=== PATIENT | female | born 1955 | race Caucasian/White ===

== ENCOUNTER 2020-12-10 12:32 | Emergency (ER) | payer MEDICARE, MEDICAID ==
[~2020-12-10] VITALS: Ht 167.6 cm; Wt 62.1 kg
[2020-12-10 12:50] VITALS: BP 147/67
[2020-12-10] MEDS ORDERED: ketorolac tromethamine 15mg/ml inj. IM ONE (14:00)
[2020-12-10] MEDS ORDERED: ACET-1025 PO (14:34)
[2020-12-10] MEDS ORDERED: CYCL-1 PO (14:34)
== END 2020-12-10 14:45 | disposition home or self-care (01) ==
LOC: ER 12:33
DX: M79.601 Pain in right arm (principal); G89.29 Other chronic pain; Z88.0 Allergy status to penicillin; Z88.8 Allergy status to other drugs, medicaments and biological substances; Z79.899 Other long term (current) drug therapy
CPT/HCPCS: 73030; 96372; 99283; J1885

== ENCOUNTER 2021-01-12 15:49 | Emergency (ER) | payer MEDICARE, MEDICAID ==
[~2021-01-12] VITALS: Ht 167.6 cm; Wt 61.0 kg
[~2021-01-12 15:49] MED LIST: ASPI-1071 PO; ATOR20TA66 PO; CLOP75TA34 PO; COR3.125T PO; CYCL-1 PO; DOXE50CA4 PO; FURO40TA4 PO; HYDR-3965 PO; HYDR-3972 PO; LISI20TA28 PO; NICO-687 TD; PERP2TAB5 PO
[2021-01-12 15:54] VITALS: BP 172/76
[2021-01-12] MEDS ORDERED: IBUP-1985 PO (16:52)
[2021-01-12] MEDS ORDERED: ACET-2006 PO (16:52)
== END 2021-01-12 18:37 | disposition home or self-care (01) ==
LOC: ER 15:50
DX: S93.601A Unspecified sprain of right foot, initial encounter (principal); M25.571 Pain in right ankle and joints of right foot; M25.471 Effusion, right ankle; G89.29 Other chronic pain; Z88.0 Allergy status to penicillin; Z88.8 Allergy status to other drugs, medicaments and biological substances; Z79.82 Long term (current) use of aspirin; Z79.899 Other long term (current) drug therapy; X58.XXXA Exposure to other specified factors, initial encounter; Y93.89 Activity, other specified; Y92.89 Other specified places as the place of occurrence of the external cause; Y99.8 Other external cause status
CPT/HCPCS: 29105; 73630; 99284

== ENCOUNTER 2021-01-20 19:07 | Emergency (ER) | payer MEDICARE, MEDICAID ==
[~2021-01-20] VITALS: Ht 160 cm; Wt 62.3 kg
[~2021-01-20 19:07] MED LIST changes: +ACET-2006 PO; -HYDR-3965 PO; +IBUP-1985 PO
[2021-01-20 19:15] VITALS: BP 141/72
[2021-01-20] MEDS ORDERED: ondansetron 4mg rapidly disintigrating tab PO ONE (19:35)
== END 2021-01-20 20:01 | disposition home or self-care (01) ==
LOC: ER 19:08
DX: R11.2 Nausea with vomiting, unspecified (principal); M54.89 Other dorsalgia; G89.29 Other chronic pain; Z88.0 Allergy status to penicillin; Z88.8 Allergy status to other drugs, medicaments and biological substances; Z79.82 Long term (current) use of aspirin; Z79.899 Other long term (current) drug therapy
CPT/HCPCS: 99283

== ENCOUNTER 2021-01-21 18:24 | Inpatient (IN) | payer MEDICARE, MEDICAID ==
[~2021-01-21] VITALS: Ht 167.6 cm; Wt 82.3 kg
[2021-01-21] MEDS ORDERED: aspirin 81mg tab.chew PO ONE (18:35)
[2021-01-21 19:09] LABS: BASOPHILS % (AUTO) 0.6 % (0-1); EOSINOPHILS % (AUTO) 0.6 % (0-6); HEMATOCRIT 37.9 % (35.0-45.0); HEMOGLOBIN 12.7 g/dl (12.0-16.0); LYMPHOCYTES # (AUTO) 1.4 X10'3 (1.1-4.8); LYMPHOCYTES % (AUTO) 24.8 % (21-51); MEAN CORPUSCULAR HEMOGLOBIN 32.5 PG (27.0-31.0); MEAN CORPUSCULAR HGB CONC 33.5 g/dL (33.0-36.5); MEAN CORPUSCULAR VOLUME 97.1 FL (78-98); MEAN PLATELET VOLUME 7.9 FL (7.4-10.4); MONOCYTES # (AUTO) 0.6 X10'3 (0-0.9); MONOCYTES % (AUTO) 9.8 % (2-12); NEUTROPHILS # (AUTO) 3.7 X10'3 (1.8-7.7); NEUTROPHILS % (AUTO) 64.2 % (42-75); PLATELET COUNT 272 X10'3 (140-440); RED CELL DISTRIBUTION WIDTH 16.1 % (11.5-14.5); WHITE BLOOD COUNT 5.7 X10'3 (4.5-11.0)
[2021-01-21 19:17] LABS: ALANINE AMINOTRANSFERASE 33 U/L (12-78); ALBUMIN/GLOBULIN RATIO 1.1 (1.1-1.5); ALKALINE PHOSPHATASE 87 IU/L (46-116); ANION GAP 13 (8-16); ASPARTATE AMINO TRANSFERASE 32 U/L (10-37); BILIRUBIN,TOTAL 0.7 MG/DL (0.1-1.0); BLOOD UREA NITROGEN 18 MG/DL (7-18); BUN/CREATININE RATIO 19.6 (6.6-38.0); CHLORIDE 101 MMOL/L (99-107); CREATININE 0.92 MG/DL (0.40-0.90); GLUCOSE 104 MG/DL (70-104); POTASSIUM 3.9 MMOL/L (3.5-5.1); SODIUM 137 MMOL/L (135-145); TOTAL CARBON DIOXIDE 22.9 MMOL/L (24-32); TOTAL PROTEIN 7.6 G/DL (6.4-8.2); eGFR 62 ML/MIN
[2021-01-21 19:31] LABS: CLARITY,URINE CLEAR (Clear); COLOR,URINE YELLOW (Yellow); GLUCOSE, URINE NEGATIVE (Neg); KETONES,URINE NEGATIVE (Neg); LEUKOCYTE ESTERASE ,URINE NEGATIVE (Neg); NITRITES, URINE NEGATIVE (Neg); OCCULT BLOOD,URINE TRACE-INTACT (Neg); PH,URINE 5.5 (4.8-8.0); PROTEIN,URINE NEGATIVE (Neg); UROBILINOGEN,URINE 0.2 E.U/dL (0.2-1.0)
[2021-01-21] MEDS ORDERED: pantoprazole 40mg Tablet.DR PO STA (19:33)
[2021-01-21] MEDS ORDERED: ondansetron 4mg rapidly disintigrating tab PO ONE (19:35)
[2021-01-21] MEDS ORDERED: famotidine 20mg tablet PO ONE (19:35)
[2021-01-21] MEDS ORDERED: LIDOcaine Viscous 15ml cup MM ONE (19:35)
[2021-01-21] MEDS ORDERED: mag hydrox/Alum hydrox/simeth 30ml oral suspension PO ONE (19:35)
[2021-01-21 19:39] LABS: UA COLLECTION TYPE STRAIGHT CATH
--- NOTE | 2021-01-21 19:41 | NUR ---
Attempt to contact patient's son. He does not answer. Voice message left to call back when available.
[2021-01-21 19:43] LABS: ETHANOL < 0.010 GM/DL (0.0-0.010)
[2021-01-21 19:51] LABS: BACTERIA,URINE NONE SEEN /HPF (Neg); RBC,URINE 0-2 /HPF (0-2); SQUAMOUS EPITHELIAL CELL,UR NONE SEEN /LPF (FEW); TRANSITIONAL EPI CELLS,URINE FEW /HPF; URINE AMPHETAMINE SCREEN NEGATIVE (Neg); URINE BARBITUATE SCREEN NEGATIVE (Neg); URINE BENZODIAZEPINES SCREEN NEGATIVE (Neg); URINE CANNABINOID SCREEN NEGATIVE (Neg); URINE COCAINE SCREEN NEGATIVE (Neg); URINE METHADONE SCREEN NEGATIVE (Neg); URINE OPIATE SCREEN NEGATIVE (Neg); URINE PHENCYCLIDINE SCREEN NEGATIVE (Neg); WBC,URINE NONE SEEN /HPF (0-4)
--- NOTE | 2021-01-21 20:38 | NUR ---
Patient uncooperative and continuously removes vital sign monitoring equipment despite education to please leave them in place.
--- NOTE | 2021-01-21 20:42 | NUR ---
Second attempt to contact patient's son which resulted in another voicemail left requesting a return phone call. Dr. Bass notified.
[2021-01-21] MEDS ORDERED: magnesium 2GM in 50ml NS 50 ML IV PRN (21:35)
[2021-01-21] MEDS ORDERED: magnesium hydroxide 30ml (MOM) UD suspension PO PRN (21:35)
[2021-01-21] MEDS ORDERED: potassium Cl 40MEQ/1/2NS 520ml 520 ML IV PRN ×2 (21:35)
[2021-01-21] MEDS ORDERED: magnesium 4gm in 100ml NS 100 ML IV PRN (21:35)
[2021-01-21] MEDS ORDERED: potassium Cl 20 mEq SR tablet PO PRN ×2 (21:35)
[2021-01-21] MEDS ORDERED: ondansetron/PF 4mg/2ml inj IV PRN (21:35)
[2021-01-21] MEDS ORDERED: mag hydrox/Alum hydrox/simeth 30ml oral suspension PO PRN (21:35)
[2021-01-21] MEDS ORDERED: acetaminophen 325mg tablet PO PRN (21:35)
[2021-01-21] MEDS ORDERED: magnesium Cl slow-release 64mg tablet PO PRN (21:35)
[2021-01-21] MEDS ORDERED: haloperidol lactate 5mg/ml inj IM PRN (22:15)
[2021-01-21] MEDS: LORazepam 2 mg/ml vial IV PRN (22:30)
[2021-01-22 00:38] LABS: EOSINOPHILS % (AUTO) 0.4 % (0-6); HEMATOCRIT 34.9 % (35.0-45.0); LYMPHOCYTES # (AUTO) 1.4 X10'3 (1.1-4.8); LYMPHOCYTES % (AUTO) 29.1 % (21-51); MEAN CORPUSCULAR HEMOGLOBIN 32.9 PG (27.0-31.0); MEAN CORPUSCULAR HGB CONC 34.4 g/dL (33.0-36.5); MEAN CORPUSCULAR VOLUME 95.4 FL (78-98); MEAN PLATELET VOLUME 7.6 FL (7.4-10.4); MONOCYTES # (AUTO) 0.4 X10'3 (0-0.9); MONOCYTES % (AUTO) 9.2 % (2-12); NEUTROPHILS # (AUTO) 2.9 X10'3 (1.8-7.7); NEUTROPHILS % (AUTO) 60.3 % (42-75); PLATELET COUNT 250 X10'3 (140-440); RED BLOOD COUNT 3.66 X10'6 (4.20-5.60); RED CELL DISTRIBUTION WIDTH 15.7 % (11.5-14.5); WHITE BLOOD COUNT 4.8 X10'3 (4.5-11.0)
[2021-01-22 00:47] LABS: ALANINE AMINOTRANSFERASE 31 U/L (12-78); ALBUMIN 3.5 G/DL (3.4-5.0); ALBUMIN/GLOBULIN RATIO 1.1 (1.1-1.5); ALKALINE PHOSPHATASE 78 IU/L (46-116); ANION GAP 10 (8-16); ASPARTATE AMINO TRANSFERASE 29 U/L (10-37); BILIRUBIN,TOTAL 0.6 MG/DL (0.1-1.0); BLOOD UREA NITROGEN 18 MG/DL (7-18); BUN/CREATININE RATIO 21.7 (6.6-38.0); CALCIUM 8.5 MG/DL (8.5-10.1); CHLORIDE 104 MMOL/L (99-107); CREATININE 0.83 MG/DL (0.40-0.90); GLUCOSE 109 MG/DL (70-104); POTASSIUM 3.9 MMOL/L (3.5-5.1); SODIUM 138 MMOL/L (135-145); TOTAL CARBON DIOXIDE 24.4 MMOL/L (24-32); TOTAL PROTEIN 6.8 G/DL (6.4-8.2); eGFR 69 ML/MIN
[2021-01-22 00:50] LABS: MAGNESIUM 2.3 MG/DL (1.5-2.4)
--- NOTE | 2021-01-22 01:11 | NUR ---
Patient sleeping peacefully
--- NOTE | 2021-01-22 03:38 | NUR ---
Patient continues to sleep.
[2021-01-22] MEDS ORDERED: CARV3.122 PO (07:26)
[2021-01-22] MEDS ORDERED: CLOP75TA15 PO (07:26)
[2021-01-22] MEDS ORDERED: LISI10TA27 PO (07:26)
[2021-01-22] MEDS ORDERED: ATOR-2 PO (07:26)
[2021-01-22] MEDS ORDERED: NICO-687 TOP (07:26)
[2021-01-22] MEDS ORDERED: BACL10TA2 PO (07:26)
[2021-01-22] MEDS ORDERED: POTA20TA19 PO (07:26)
[2021-01-22] MEDS ORDERED: ASPI-611 PO (07:29)
[2021-01-22] MEDS: K and/or MAG REPLACEMENT MC SCH ×2 (08:00→20:00)
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
--- NOTE | 2021-01-22 09:33 | NUR ---
DR SCANLON NOTIFIED AND WILL REVIEW CHART FOR POSSIBLE DC.
[2021-01-22] MEDS: acetaminophen 325mg tablet PO PRN (10:02)
[2021-01-22] MEDS ORDERED: DOXE100C10 PO (10:14)
[2021-01-22] MEDS ORDERED: HYDR-3686 PO (10:14)
[2021-01-22] MEDS ORDERED: FURO40TA4 PO (10:14)
[2021-01-22] MEDS ORDERED: IBUP-1985 PO (10:14)
[2021-01-22] MEDS ORDERED: regadenoson 0.4mg/5ml syringe IV PRN (10:15)
[2021-01-22] MEDS ORDERED: aminophylline 250mg/10ml inj. IV PRN (10:15)
[2021-01-22] MEDS ORDERED: nitroGLYCERIN 0.4mg SUBLingual tab SL PRN (10:15)
[2021-01-22] MEDS ORDERED: metoprolol tartrate 1mg/ml inj IV PRN (10:15)
[2021-01-22] MEDS ORDERED: hydrOXYzine 25 MG tablet PO PRN (10:20)
[2021-01-22] MEDS: perphenazine 8mg tablets PO SCH (11:16)
[2021-01-22] MEDS: lisinopril 10 MG tablet PO SCH (11:18)
[2021-01-22] MEDS: furosemide 40mg tablet PO SCH (11:18)
[2021-01-22] MEDS: clopidogrel 75mg tablet PO SCH (11:19)
[2021-01-22] MEDS: HYDROcodone/acetaminophen 10/325mg tab PO PRN ×2 (11:19→18:36)
[2021-01-22] MEDS: carVEDilol 3.125mg tablet PO SCH ×2 (11:20→20:00)
[2021-01-22] MEDS: aspirin 81mg tab.chew PO SCH (11:20)
--- NOTE | 2021-01-22 15:05 | NUR ---
melo rn at bedside.
[2021-01-22 16:30] VITALS: BP 144/73
[2021-01-22 18:00] VITALS: BP 144/73
--- NOTE | 2021-01-22 18:38 | NUR ---
Patient in room ORTHO 4020. I have received report from CHARLEY Moss and had the opportunity to ask questions and assume patient care.
[2021-01-22] MEDS: atorvastatin 20mg tablet PO SCH (21:05)
[2021-01-22] MEDS: doxepin 25mg capsule PO SCH (21:34)
[2021-01-22 22:00] VITALS: BP 138/76
[2021-01-23] VITALS (14 sets, daily range): BP systolic 112–189; BP diastolic 52–85
[2021-01-23] MEDS: acetaminophen 325mg tablet PO PRN ×2 (00:18→12:50)
--- NOTE | 2021-01-23 06:26 | NUR ---
Problems reprioritized. Patient report given, questions answered & plan of care reviewed with CHARLEY Barnett.
[2021-01-23 06:37] LABS: EOSINOPHILS % (AUTO) 0.7 % (0-6); HEMATOCRIT 39.9 % (35.0-45.0); HEMOGLOBIN 13.5 g/dl (12.0-16.0); LYMPHOCYTES % (AUTO) 26.2 % (21-51); MEAN CORPUSCULAR HEMOGLOBIN 32.4 PG (27.0-31.0); MEAN CORPUSCULAR HGB CONC 33.9 g/dL (33.0-36.5); MEAN CORPUSCULAR VOLUME 95.6 FL (78-98); MONOCYTES # (AUTO) 0.5 X10'3 (0-0.9); MONOCYTES % (AUTO) 12.8 % (2-12); NEUTROPHILS # (AUTO) 2.2 X10'3 (1.8-7.7); NEUTROPHILS % (AUTO) 59.3 % (42-75); PLATELET COUNT 249 X10'3 (140-440); RED BLOOD COUNT 4.17 X10'6 (4.20-5.60); RED CELL DISTRIBUTION WIDTH 16.1 % (11.5-14.5); WHITE BLOOD COUNT 3.7 X10'3 (4.5-11.0)
[2021-01-23 07:02] LABS: ALANINE AMINOTRANSFERASE 31 U/L (12-78); ALBUMIN 3.9 G/DL (3.4-5.0); ALBUMIN/GLOBULIN RATIO 1.1 (1.1-1.5); ALKALINE PHOSPHATASE 81 IU/L (46-116); ANION GAP 12 (8-16); ASPARTATE AMINO TRANSFERASE 25 U/L (10-37); BILIRUBIN,TOTAL 0.7 MG/DL (0.1-1.0); BLOOD UREA NITROGEN 23 MG/DL (7-18); BUN/CREATININE RATIO 26.1 (6.6-38.0); CHLORIDE 100 MMOL/L (99-107); CREATININE 0.88 MG/DL (0.40-0.90); GLUCOSE 113 MG/DL (70-104); MAGNESIUM 2.2 MG/DL (1.5-2.4); POTASSIUM 3.8 MMOL/L (3.5-5.1); SODIUM 137 MMOL/L (135-145); TOTAL CARBON DIOXIDE 25.3 MMOL/L (24-32); TOTAL PROTEIN 7.6 G/DL (6.4-8.2); eGFR 65 ML/MIN
[2021-01-23 07:06] LABS: CALCIUM 9.3 MG/DL (8.5-10.1)
[2021-01-23] MEDS: aspirin 81mg tab.chew PO SCH (07:07)
[2021-01-23] MEDS: carVEDilol 3.125mg tablet PO SCH ×2 (07:08→20:22)
[2021-01-23] MEDS: clopidogrel 75mg tablet PO SCH (07:08)
[2021-01-23] MEDS: furosemide 40mg tablet PO SCH (07:08)
[2021-01-23] MEDS: perphenazine 8mg tablets PO SCH (07:08)
[2021-01-23] MEDS: lisinopril 10 MG tablet PO SCH (07:09)
[2021-01-23] MEDS: LORazepam 2 mg/ml vial IV PRN ×3 (07:10→17:22)
[2021-01-23] MEDS: HYDROcodone/acetaminophen 10/325mg tab PO PRN ×2 (07:11→15:08)
[2021-01-23] MEDS: K and/or MAG REPLACEMENT MC SCH ×2 (08:00→20:00)
--- NOTE | 2021-01-23 10:02 | NUR ---
patient off floor for param
[2021-01-23] MEDS ORDERED: regadenoson 0.4mg/5ml syringe IV PRN (10:15)
--- NOTE | 2021-01-23 11:49 | NUR ---
patient back on floor from [facility]
[2021-01-23] MEDS: nicotine 14mg patch - 24hr TD SCH (12:05)
--- NOTE | 2021-01-23 15:03 | NUR ---
PAGER ID: [phone] MESSAGE: Anibal Ontiveros [id number] [facility] [id number] patient refuses scheduled Aspirin due to tinnitus reaction Thanks
--- NOTE | 2021-01-23 17:05 | NUR ---
PAGER ID: [phone] MESSAGE: Anibal [id number] [id number] Can we get a PO ativan as an alternative option to her IVP ativan please?
--- NOTE | 2021-01-23 17:34 | NUR ---
PAGER ID: [phone] MESSAGE: [id number] Yumiko Castillo BP 189/85. No PRN BP medications. Sylvie [phone]
--- NOTE | 2021-01-23 17:58 | NUR ---
BP recheck Addendum: 01/23/21 at 1758 by Sylvie Paris RN Amended: Links added.
--- NOTE | 2021-01-23 18:08 | NUR ---
Patient in room ORTHO 4020. I have received report from SylvieRN and AnibalRN and had the opportunity to ask questions and assume patient care.
--- NOTE | 2021-01-23 18:08 | NUR ---
Problems reprioritized. Patient report given, questions answered & plan of care reviewed with Nesha WHITEHEAD.
[2021-01-23] MEDS: atorvastatin 20mg tablet PO SCH (20:22)
[2021-01-23] MEDS: doxepin 25mg capsule PO SCH (21:39)
[2021-01-24] MEDS: acetaminophen 325mg tablet PO PRN (00:53)
[2021-01-24] MEDS: HYDROcodone/acetaminophen 10/325mg tab PO PRN (05:10)
[2021-01-24 06:00] VITALS: BP 124/54
--- NOTE | 2021-01-24 06:30 | NUR ---
Problems reprioritized. Patient report given, questions answered & plan of care reviewed with CHARLEY Santa.
[2021-01-24 06:48] LABS: BASOPHILS % (AUTO) 0.9 % (0-1); EOSINOPHILS % (AUTO) 0.5 % (0-6); HEMATOCRIT 38.7 % (35.0-45.0); HEMOGLOBIN 13.4 g/dl (12.0-16.0); LYMPHOCYTES # (AUTO) 1.3 X10'3 (1.1-4.8); LYMPHOCYTES % (AUTO) 29.4 % (21-51); MEAN CORPUSCULAR HEMOGLOBIN 33.3 PG (27.0-31.0); MEAN CORPUSCULAR HGB CONC 34.7 g/dL (33.0-36.5); MEAN CORPUSCULAR VOLUME 95.9 FL (78-98); MONOCYTES # (AUTO) 0.5 X10'3 (0-0.9); MONOCYTES % (AUTO) 12.4 % (2-12); NEUTROPHILS # (AUTO) 2.5 X10'3 (1.8-7.7); NEUTROPHILS % (AUTO) 56.8 % (42-75); PLATELET COUNT 264 X10'3 (140-440); RED BLOOD COUNT 4.03 X10'6 (4.20-5.60); RED CELL DISTRIBUTION WIDTH 15.7 % (11.5-14.5); WHITE BLOOD COUNT 4.4 X10'3 (4.5-11.0)
[2021-01-24] MEDS: LORazepam 2 mg/ml vial IV PRN (07:03)
--- NOTE | 2021-01-24 07:14 | NUR ---
Patient in room ORTHO 4020B. I have received report from CHARELY CURRAN and had the opportunity to ask questions and assume patient care.
[2021-01-24 07:18] LABS: ALANINE AMINOTRANSFERASE 23 U/L (12-78); ALBUMIN 3.8 G/DL (3.4-5.0); ALBUMIN/GLOBULIN RATIO 1.1 (1.1-1.5); ALKALINE PHOSPHATASE 77 IU/L (46-116); ANION GAP 12 (8-16); ASPARTATE AMINO TRANSFERASE 20 U/L (10-37); BILIRUBIN,TOTAL 0.8 MG/DL (0.1-1.0); BLOOD UREA NITROGEN 22 MG/DL (7-18); BUN/CREATININE RATIO 24.7 (6.6-38.0); CALCIUM 9.3 MG/DL (8.5-10.1); CHLORIDE 99 MMOL/L (99-107); CREATININE 0.89 MG/DL (0.40-0.90); GLUCOSE 105 MG/DL (70-104); POTASSIUM 3.7 MMOL/L (3.5-5.1); SODIUM 135 MMOL/L (135-145); TOTAL CARBON DIOXIDE 24.3 MMOL/L (24-32); TOTAL PROTEIN 7.3 G/DL (6.4-8.2); eGFR 64 ML/MIN
[2021-01-24] MEDS: K and/or MAG REPLACEMENT MC SCH (08:00)
[2021-01-24] MEDS: furosemide 40mg tablet PO SCH (08:00)
[2021-01-24] MEDS: nicotine 14mg patch - 24hr TD SCH (08:00)
[2021-01-24] MEDS: aspirin 81mg tab.chew PO SCH (08:00)
[2021-01-24] MEDS: clopidogrel 75mg tablet PO SCH (09:44)
[2021-01-24] MEDS: perphenazine 8mg tablets PO SCH (09:44)
[2021-01-24] MEDS: carVEDilol 3.125mg tablet PO SCH (09:45)
[2021-01-24] MEDS: lisinopril 10 MG tablet PO SCH (09:46)
[2021-01-24 10:00] VITALS: BP 147/61
[2021-01-24] MEDS ORDERED: NITR0.4T51 SL (11:16)
--- NOTE | 2021-01-24 15:00 | NUR ---
PATIENT STABLE AND APPROPRIATE FOR DISCHARGE, IV TAKEN OUT, TELE REMOVED, NEW MED E-SCRIPTED TO PREFERRED PHARMACY, WRITTEN EDUCATION SENT WITH PATIENT, PATIENT REFUSED TO GO OVER/RECEIVE EDUCATION, ALL BELONGINGS SENT WITH PATIENT, PATIENT TAKEN TO LOBBY TO SIT ON BENCH TO WAIT FOR RIDE WHICH FAMILY FRIEND WOULD TAKE PATIENT HOME
[2021-01-28] MEDS ORDERED: BACL-11 PO (01:27)
[2021-01-28] MEDS ORDERED: PRAV10TA39 PO (01:27)
[2021-01-28] MEDS ORDERED: DOXE50CA4 PO (01:27)
== END 2021-01-24 15:00 | disposition home or self-care (01) | DRG 917 ==
LOC: ER 18:24 → ED HOLD 21:33 → ORTHO 4S 01-22 16:31
PROVIDERS: ADMIT Family Medicine; ATTEND Family Medicine
PROC: 4A02XM4 Measurement of Cardiac Total Activity, External Approach (ICD-10-PCS; principal; 2021-01-23)
PROC: 3E073KZ Introduction of Other Diagnostic Substance into Coronary Artery, Percutaneous Approach (ICD-10-PCS; 2021-01-23)
DX: T42.8X1A Poisoning by antiparkinsonism drugs and other central muscle-tone depressants, accidental (unintentional), initial encounter (principal); I21.A1 Myocardial infarction type 2; F11.23 Opioid dependence with withdrawal; G93.40 Encephalopathy, unspecified; E78.5 Hyperlipidemia, unspecified; F17.210 Nicotine dependence, cigarettes, uncomplicated; G89.4 Chronic pain syndrome; I11.0 Hypertensive heart disease with heart failure; F99 Mental disorder, not otherwise specified; I25.5 Ischemic cardiomyopathy; M54.9 Dorsalgia, unspecified; I25.10 Atherosclerotic heart disease of native coronary artery without angina pectoris; I50.9 Heart failure, unspecified; K21.9 Gastro-esophageal reflux disease without esophagitis; Z82.49 Family history of ischemic heart disease and other diseases of the circulatory system; Z95.5 Presence of coronary angioplasty implant and graft; Z88.0 Allergy status to penicillin; Z88.6 Allergy status to analgesic agent; Z79.899 Other long term (current) drug therapy; Z71.6 Tobacco abuse counseling
CPT/HCPCS: 36415; 70450; 71045; 78452; 80053; 80305; 80320; 81001; 83735; 83880; 84443; 84484; 85025; 87081; 93005; 93017; 93306; 93308; 99285; A9500; G0378; J2060; J2785; Q0177

== ENCOUNTER 2021-02-13 19:48 | Emergency (ER) | payer MEDICARE, MEDICAID ==
[~2021-02-13] VITALS: Ht 167.6 cm; Wt 62.3 kg
[~2021-02-13 19:48] MED LIST changes: -ACET-2006 PO; -ASPI-1071 PO; +ASPI-611 PO; +ATOR-2 PO; -ATOR20TA66 PO; +CARV3.122 PO; +CLOP75TA15 PO; -CLOP75TA34 PO; -COR3.125T PO; -CYCL-1 PO; -DOXE50CA4 PO; +DOXE75CA3 PO; +HYDR-3686 PO; -HYDR-3972 PO; -IBUP-1985 PO; +LISI10TA27 PO; -LISI20TA28 PO; +MELA3TAB39 PO; -NICO-687 TD; +POTA20TA19 PO; +SERT-432 PO
--- NOTE | 2021-02-13 21:03 | NUR ---
This RN assisted the primary care list with the extablishment of a saline lock to the left hand. Patient blood drawn for lab analysis, 20 ga cath with a Y-port was flushed and secured X 1 attempt.
[2021-02-13] MEDS ORDERED: normal saline 1000ml 1,000 ML IV ONE (21:20)
[2021-02-13 21:32] LABS: BASOPHILS % (AUTO) 0.4 % (0-1); EOSINOPHILS % (AUTO) 0.2 % (0-6); HEMOGLOBIN 14.2 g/dl (12.0-16.0); LYMPHOCYTES # (AUTO) 1.7 X10'3 (1.1-4.8); LYMPHOCYTES % (AUTO) 26.1 % (21-51); MEAN CORPUSCULAR HEMOGLOBIN 32.6 PG (27.0-31.0); MEAN CORPUSCULAR HGB CONC 33.8 g/dL (33.0-36.5); MEAN CORPUSCULAR VOLUME 96.6 FL (78-98); MEAN PLATELET VOLUME 7.3 FL (7.4-10.4); MONOCYTES # (AUTO) 0.6 X10'3 (0-0.9); MONOCYTES % (AUTO) 8.9 % (2-12); NEUTROPHILS # (AUTO) 4.2 X10'3 (1.8-7.7); NEUTROPHILS % (AUTO) 64.4 % (42-75); PLATELET COUNT 330 X10'3 (140-440); RED BLOOD COUNT 4.35 X10'6 (4.20-5.60); RED CELL DISTRIBUTION WIDTH 15.1 % (11.5-14.5); WHITE BLOOD COUNT 6.6 X10'3 (4.5-11.0)
[2021-02-13] MEDS ORDERED: ondansetron/PF 4mg/2ml inj IV ONE (21:40)
[2021-02-13 21:43] LABS: ALANINE AMINOTRANSFERASE 59 U/L (12-78); ALBUMIN 4.4 G/DL (3.4-5.0); ALBUMIN/GLOBULIN RATIO 1.1 (1.1-1.5); ALKALINE PHOSPHATASE 187 IU/L (46-116); ANION GAP 11 (8-16); ASPARTATE AMINO TRANSFERASE 38 U/L (10-37); BILIRUBIN,TOTAL 0.8 MG/DL (0.1-1.0); BLOOD UREA NITROGEN 25 MG/DL (7-18); BUN/CREATININE RATIO 21.2 (6.6-38.0); CALCIUM 9.7 MG/DL (8.5-10.1); CHLORIDE 101 MMOL/L (99-107); CREATININE 1.18 MG/DL (0.40-0.90); GLUCOSE 110 MG/DL (70-104); POTASSIUM 3.7 MMOL/L (3.5-5.1); SODIUM 140 MMOL/L (135-145); TOTAL CARBON DIOXIDE 27.6 MMOL/L (24-32); TOTAL PROTEIN 8.3 G/DL (6.4-8.2); eGFR 46 ML/MIN
[2021-02-13 21:49] LABS: MAGNESIUM 2.4 MG/DL (1.5-2.4)
[2021-02-13] MEDS ORDERED: ONDA4TAB12 PO (21:51)
[2021-02-14 00:07] LABS: CLARITY,URINE CLEAR (Clear); COLOR,URINE YELLOW (Yellow); GLUCOSE, URINE NEGATIVE (Neg); KETONES,URINE TRACE mg/dl (Neg); LEUKOCYTE ESTERASE ,URINE NEGATIVE (Neg); NITRITES, URINE NEGATIVE (Neg); OCCULT BLOOD,URINE NEGATIVE (Neg); PROTEIN,URINE TRACE mg/dl (Neg); UROBILINOGEN,URINE 0.2 E.U/dL (0.2-1.0)
[2021-02-14 00:12] LABS: UA COLLECTION TYPE CLN CATCH MIDSTREAM
[2021-02-14 00:20] LABS: BACTERIA,URINE FEW /HPF (Neg); MUCUS STRANDS MODERATE /LPF (Neg); RBC,URINE 0-2 /HPF (0-2); SQUAMOUS EPITHELIAL CELL,UR MODERATE /LPF (FEW); WBC,URINE 0-4 /HPF (0-4)
[2021-02-14 00:41] VITALS: BP 153/69
--- NOTE | 2021-02-14 03:41 | NUR ---
Pt [facility] worker Gilbert . Left message to please call back to arrange transport.
--- NOTE | 2021-02-14 06:42 | NUR ---
Juliann, , pr's friend called for possible transport home. No answer
== END 2021-02-14 10:43 | disposition home or self-care (01) ==
LOC: ER 19:49
DX: R11.2 Nausea with vomiting, unspecified (principal); R07.89 Other chest pain; K59.00 Constipation, unspecified; I25.10 Atherosclerotic heart disease of native coronary artery without angina pectoris; I10 Essential (primary) hypertension; G89.29 Other chronic pain; F17.210 Nicotine dependence, cigarettes, uncomplicated; Z88.0 Allergy status to penicillin; Z88.6 Allergy status to analgesic agent; Z79.82 Long term (current) use of aspirin; Z79.899 Other long term (current) drug therapy
CPT/HCPCS: 36415; 71045; 80053; 81001; 83735; 83880; 84484; 85025; 96374; 99285; J2405; J7030; 81003

== ENCOUNTER 2022-09-14 02:14 | Inpatient (IN) | payer MEDICARE, MEDICAID ==
[~2022-09-14] VITALS: Ht 167.6 cm; Wt 65.2 kg
[~2022-09-14 02:14] MED LIST changes: +ONDA4TAB12 PO; +POTA-207 PO; -POTA20TA19 PO
[2022-09-14] MEDS ORDERED: albuterol 2.5 MG/3 ML nebule NEB ONE (02:25)
[2022-09-14] MEDS ORDERED: ipratropium/albuterol 3ml nebule NEB ONE (02:25)
[2022-09-14] MEDS ORDERED: methylPREDNISolone sod succ 125mg/2ml vial IV ONE (02:25)
[2022-09-14] MEDS ORDERED: aspirin 81mg tab.chew PO ONE (02:35)
[2022-09-14 02:38] LABS: ABG BASE EXCESS -6.8 mmol/L (-2.0-2.0); ABG HCO3 18.1 mmol/L (22.0-26.0); ABG OXYGEN SATURATION 89.7 % (94-97); ABG PCO2 (T) 34.5 mmHg (32.0-45.0); ABG PO2 (T) 59.8 mmHg (75.0-100.0); FCOHb 6.7 % (0.0-3.9); FMetHb 0.3 % (0.0-1.5); FO2Hb 83.4 % (94-97); TOTAL HEMOGLOBIN 13.4 G/dl (12.0-16.0)
[2022-09-14] MEDS ORDERED: iohexol 350MG/ML 100ml bottle IV ONE (02:38)
[2022-09-14 02:56] LABS: BASOPHILS % (AUTO) 0.3 % (0-1); EOSINOPHILS % (AUTO) 0.1 % (0-6); HEMATOCRIT 40.2 % (35.0-45.0); HEMOGLOBIN 13.3 g/dl (12.0-16.0); LYMPHOCYTES # (AUTO) 0.6 X10'3 (1.1-4.8); LYMPHOCYTES % (AUTO) 9.3 % (21-51); MEAN CORPUSCULAR HGB CONC 33.1 g/dL (33.0-36.5); MEAN CORPUSCULAR VOLUME 99.7 FL (78-98); MEAN PLATELET VOLUME 7.4 FL (7.4-10.4); MONOCYTES # (AUTO) 0.4 X10'3 (0-0.9); MONOCYTES % (AUTO) 5.9 % (2-12); NEUTROPHILS # (AUTO) 5.7 X10'3 (1.8-7.7); NEUTROPHILS % (AUTO) 84.4 % (42-75); PLATELET COUNT 300 X10'3 (140-440); RED BLOOD COUNT 4.03 X10'6 (4.20-5.60); RED CELL DISTRIBUTION WIDTH 13.7 % (11.5-14.5); WHITE BLOOD COUNT 6.7 X10'3 (4.5-11.0)
[2022-09-14] MEDS ORDERED: LORazepam 2 mg/ml vial IM ONE (03:15)
[2022-09-14 03:16] LABS: ALANINE AMINOTRANSFERASE 21 U/L (12-78); ALBUMIN 3.9 G/DL (3.4-5.0); ALKALINE PHOSPHATASE 150 IU/L (46-116); ANION GAP 9 (8-16); ASPARTATE AMINO TRANSFERASE 25 U/L (10-37); BILIRUBIN,TOTAL 0.3 MG/DL (0.1-1.0); BLOOD UREA NITROGEN 20 MG/DL (7-18); BUN/CREATININE RATIO 17.7 (6.6-38.0); CALCIUM 9.3 MG/DL (8.5-10.1); CHLORIDE 97 MMOL/L (99-107); CREATININE 1.13 MG/DL (0.40-0.90); GLUCOSE 141 MG/DL (70-104); POTASSIUM 4.5 MMOL/L (3.5-5.1); SODIUM 130 MMOL/L (135-145); TOTAL CARBON DIOXIDE 23.8 MMOL/L (24-32); TOTAL PROTEIN 7.9 G/DL (6.4-8.2); eGFR 48 ML/MIN
[2022-09-14] MEDS ORDERED: furosemide 10 MG/1 ML 10ml inj IV ONE ×2 (03:25→19:00)
[2022-09-14] MEDS ORDERED: diphenhydrAMINE 25mg capsule PO PRN (03:55)
[2022-09-14] MEDS ORDERED: acetaminophen 650mg rectal suppository RC PRN (03:55)
[2022-09-14] MEDS ORDERED: acetaminophen 325mg tablet PO PRN (03:55)
[2022-09-14] MEDS ORDERED: morphine 2 MG/ML inj. syringe IV PRN ×2 (03:55)
[2022-09-14] MEDS ORDERED: ondansetron 4mg rapidly disintigrating tab PO PRN (03:55)
[2022-09-14] MEDS ORDERED: bisacodyl 10mg suppository rectal RC PRN (03:55)
[2022-09-14] MEDS ORDERED: mag hydrox/Alum hydrox/simeth 30ml oral suspension PO PRN (03:55)
[2022-09-14] MEDS ORDERED: ondansetron/PF 4mg/2ml inj IV PRN (03:55)
[2022-09-14 04:25] LABS: APTT 35 SECONDS (22-32)
[2022-09-14 04:34] LABS: MAGNESIUM 2.1 MG/DL (1.5-2.4); PHOSPHORUS 4.9 MG/DL (2.3-4.5)
[2022-09-14] MEDS: normal saline 1000ml 1,000 ML IV SCH ×2 (05:14→20:15)
[2022-09-14 05:30] LABS: CLARITY,URINE CLEAR (Clear); COLOR,URINE STRAW (Yellow); GLUCOSE, URINE NEGATIVE (Neg); KETONES,URINE NEGATIVE (Neg); LEUKOCYTE ESTERASE ,URINE NEGATIVE (Neg); NITRITES, URINE NEGATIVE (Neg); OCCULT BLOOD,URINE NEGATIVE (Neg); PH,URINE 5.5 (4.8-8.0); PROTEIN,URINE NEGATIVE (Neg); UA COLLECTION TYPE CLN CATCH MIDSTREAM; UROBILINOGEN,URINE 0.2 E.U/dL (0.2-1.0)
[2022-09-14] MEDS: ipratropium/albuterol 3ml nebule NEB SCH ×6 (07:00→23:52)
[2022-09-14] MEDS: methylPREDNISolone sod succ 125mg/2ml vial IV SCH ×2 (07:16→20:24)
[2022-09-14] MEDS: pantoprazole 40mg Tablet.DR PO SCH (07:17)
[2022-09-14] MEDS: levoFLOXACIN-Levaquin 500mg/D5 100 ML IV SCH (07:17)
[2022-09-14] MEDS: nicotine 21mg patch - 24 hr TD SCH (07:17)
[2022-09-14] MEDS: docusate sod 100mg capsule PO SCH ×2 (07:19→20:26)
[2022-09-14] MEDS ORDERED: heparin, porcine 5000 units/ml vial SQ SCH (08:00)
[2022-09-14 08:38] LABS: URINE AMPHETAMINE SCREEN NEGATIVE (Neg); URINE BARBITUATE SCREEN NEGATIVE (Neg); URINE BENZODIAZEPINES SCREEN NEGATIVE (Neg); URINE CANNABINOID SCREEN NEGATIVE (Neg); URINE COCAINE SCREEN NEGATIVE (Neg); URINE METHADONE SCREEN NEGATIVE (Neg); URINE OPIATE SCREEN NEGATIVE (Neg); URINE PHENCYCLIDINE SCREEN NEGATIVE (Neg)
--- NOTE | 2022-09-14 11:10 | NUR ---
NAOMI form faxed to seconds handler at [facility].
--- NOTE | 2022-09-14 12:36 | NUR ---
pt given lunch tray
[2022-09-14] MEDS: HYDROcodone/acetaminophen 10/325mg tab PO PRN ×2 (13:24→18:56)
[2022-09-14] MEDS ORDERED: PRAV10TA39 PO (15:00)
[2022-09-14] MEDS ORDERED: LISI20TA28 PO (15:00)
[2022-09-14] MEDS ORDERED: HYDR-3964 PO (15:00)
[2022-09-14] MEDS ORDERED: FLUT12AE4 PO (15:00)
[2022-09-14] MEDS ORDERED: BACL10TA2 PO (15:00)
[2022-09-14 15:13] VITALS: BP 121/62
[2022-09-14] MEDS ORDERED: DOXE75CA3 PO (16:06)
[2022-09-14 18:00] VITALS: BP 120/63
[2022-09-14] MEDS ORDERED: potassium Cl 40MEQ/1/2NS 520ml 520 ML IV PRN ×2 (19:05)
[2022-09-14] MEDS ORDERED: potassium Cl 20 mEq SR tablet PO PRN ×2 (19:05)
[2022-09-14] MEDS: heparin 10,000 units/1 ML INJ IV SCH (19:50)
[2022-09-14] MEDS: DOBUTamine-DoBUTrex 500mg/D5W 250 ML IV SCH (20:19)
[2022-09-14 20:24] LABS: BASOPHILS % (AUTO) 0.1 % (0-1); EOSINOPHILS % (AUTO) 0 % (0-6); HEMOGLOBIN 11.8 g/dl (12.0-16.0); LYMPHOCYTES # (AUTO) 0.5 X10'3 (1.1-4.8); LYMPHOCYTES % (AUTO) 10.2 % (21-51); MEAN CORPUSCULAR HEMOGLOBIN 33.4 PG (27.0-31.0); MEAN CORPUSCULAR HGB CONC 33.7 g/dL (33.0-36.5); MEAN CORPUSCULAR VOLUME 99.1 FL (78-98); MEAN PLATELET VOLUME 7.5 FL (7.4-10.4); MONOCYTES # (AUTO) 0.2 X10'3 (0-0.9); MONOCYTES % (AUTO) 3.1 % (2-12); NEUTROPHILS # (AUTO) 4.6 X10'3 (1.8-7.7); NEUTROPHILS % (AUTO) 86.6 % (42-75); PLATELET COUNT 287 X10'3 (140-440); RED BLOOD COUNT 3.53 X10'6 (4.20-5.60); RED CELL DISTRIBUTION WIDTH 13.6 % (11.5-14.5); WHITE BLOOD COUNT 5.3 X10'3 (4.5-11.0)
[2022-09-14] MEDS: atorvastatin 20mg tablet PO SCH (20:27)
[2022-09-14] MEDS: carVEDilol 3.125mg tablet PO SCH (20:27)
[2022-09-14 20:35] LABS: APTT 25 SECONDS (22-32)
[2022-09-14] MEDS ORDERED: furosemide 20 MG/2 ML vial IV ONE (21:30)
[2022-09-14 22:00] VITALS: BP 132/66
[2022-09-14] MEDS: temazepam 15mg capsule PO PRN (23:53)
[2022-09-14] MEDS: HYDROcodone/acetaminophen 5mg/325mg tablet PO PRN (23:54)
[2022-09-15] VITALS (17 sets, daily range): BP systolic 115–152; BP diastolic 55–89
[2022-09-15] MEDS ORDERED: vancomycin/NS 1 GM ADD-VANTAGE 250 ML IV SCH (01:40)
[2022-09-15] MEDS: ipratropium/albuterol 3ml nebule NEB SCH ×6 (03:11→23:16)
[2022-09-15] MEDS: K and/or MAG REPLACEMENT MC SCH ×3 (03:30→19:06)
[2022-09-15 04:00] LABS: ALANINE AMINOTRANSFERASE 22 U/L (12-78); ALBUMIN 3.3 G/DL (3.4-5.0); ALBUMIN/GLOBULIN RATIO 0.9 (1.1-1.5); ALKALINE PHOSPHATASE 113 IU/L (46-116); ANION GAP 9 (8-16); ASPARTATE AMINO TRANSFERASE 31 U/L (10-37); BILIRUBIN,TOTAL 0.7 MG/DL (0.1-1.0); BLOOD UREA NITROGEN 26 MG/DL (7-18); BUN/CREATININE RATIO 26.3 (6.6-38.0); CALCIUM 8.5 MG/DL (8.5-10.1); CHLORIDE 100 MMOL/L (99-107); CREATININE 0.99 MG/DL (0.40-0.90); GLUCOSE 128 MG/DL (70-104); POTASSIUM 4.8 MMOL/L (3.5-5.1); SODIUM 131 MMOL/L (135-145); TOTAL CARBON DIOXIDE 22.3 MMOL/L (24-32); TOTAL PROTEIN 6.8 G/DL (6.4-8.2); eGFR 56 ML/MIN
[2022-09-15] MEDS: HYDROcodone/acetaminophen 5mg/325mg tablet PO PRN ×2 (04:23→08:33)
[2022-09-15 04:54] LABS: BASOPHILS % (AUTO) 0.1 % (0-1); EOSINOPHILS % (AUTO) 0 % (0-6); HEMATOCRIT 33.1 % (35.0-45.0); LYMPHOCYTES # (AUTO) 0.6 X10'3 (1.1-4.8); LYMPHOCYTES % (AUTO) 8.1 % (21-51); MEAN CORPUSCULAR HEMOGLOBIN 33.2 PG (27.0-31.0); MEAN CORPUSCULAR HGB CONC 33.4 g/dL (33.0-36.5); MEAN CORPUSCULAR VOLUME 99.5 FL (78-98); MEAN PLATELET VOLUME 8.1 FL (7.4-10.4); MONOCYTES # (AUTO) 0.2 X10'3 (0-0.9); MONOCYTES % (AUTO) 2.7 % (2-12); NEUTROPHILS # (AUTO) 6.3 X10'3 (1.8-7.7); NEUTROPHILS % (AUTO) 89.1 % (42-75); PLATELET COUNT 240 X10'3 (140-440); RED BLOOD COUNT 3.32 X10'6 (4.20-5.60); RED CELL DISTRIBUTION WIDTH 13.9 % (11.5-14.5)
--- NOTE | 2022-09-15 06:33 | NUR ---
Patient in room PCU 3017. I have received report from Yvonne WHITEHEAD and had the opportunity to ask questions and assume patient care. Will follow care of Pt with Maximilian ARELLANO. Pt sleeping, hep and Dobutamine Gtt infusing.Call light in reach. Addendum: 09/15/22 at 0635 by My Sparks RN Amended: Links added.
--- NOTE | 2022-09-15 06:35 | NUR ---
Patient in room U 3017. I have received report from Yvonne WHITEHEAD and had the opportunity to ask questions and assume patient care. Patient is right side lying. No distress. Call light within reach. Bed in lowest position. Addendum: 09/15/22 at 0636 by Maximilian Chester LVN Amended: Links added.
--- NOTE | 2022-09-15 07:21 | NUR ---
Patient refused her 0700 SVN treatment, wanted to rest.
[2022-09-15] MEDS: methylPREDNISolone sod succ 125mg/2ml vial IV SCH ×2 (07:58→19:57)
[2022-09-15] MEDS ORDERED: atorvastatin 10mg tablet PO SCH (08:00)
[2022-09-15] MEDS: levoFLOXACIN-Levaquin 500mg/D5 100 ML IV SCH (08:00)
[2022-09-15] MEDS: pantoprazole 40mg Tablet.DR PO SCH (08:31)
[2022-09-15] MEDS: docusate sod 100mg capsule PO SCH (08:31)
[2022-09-15] MEDS: nicotine 21mg patch - 24 hr TD SCH (08:31)
[2022-09-15] MEDS: carVEDilol 3.125mg tablet PO SCH ×2 (08:32→19:59)
[2022-09-15] MEDS ORDERED: BUPR1PAT21 TOP (08:52)
--- NOTE | 2022-09-15 09:00 | NUR ---
MESSAGE: [phone] Rajiv Castillo , Please review her MED REC. Thank You, My [phone]
[2022-09-15] MEDS ORDERED: clopidogrel 75mg tablet PO SCH (10:29)
[2022-09-15] MEDS: aspirin 81mg, enteric-coated 1 TAB TABLET.DR PO SCH (10:55)
[2022-09-15] MEDS: lisinopril 20mg tablet PO SCH (10:56)
[2022-09-15] MEDS: potassium Cl 20 mEq SR tablet PO SCH (10:57)
--- NOTE | 2022-09-15 10:59 | NUR ---
Pt explained side effects and noted allergy of aspirin. Pt verbalizes she wants the medication. She reports sometimes she gets ringing in the ears. aware.
--- NOTE | 2022-09-15 11:23 | NUR ---
Pt Buprophenphrine patch unavailable in pharmacy. Notified pt. Patient request to call Juliann [phone]. She will be bringing patient home medication.
[2022-09-15] MEDS ORDERED: nitroGLYCERIN-Tridil 50MG/D5W 250 ML IV ONE (11:25)
[2022-09-15] MEDS ORDERED: heparin 1,000unit/ml 10ml vial 10 ML ONE (11:25)
[2022-09-15] MEDS ORDERED: midazolam 1 mg/ML 2ml injection ONE (11:25)
[2022-09-15] MEDS ORDERED: LIDOcaine 1% (10mg/ml) 2ml vial ONE (11:25)
[2022-09-15] MEDS ORDERED: fentaNYL/PF 50MCG/1 ML 2ML syringe ONE (11:25)
[2022-09-15] MEDS ORDERED: verapamil 2.5 mg/ml inj IV ONE (11:25)
[2022-09-15] MEDS ORDERED: iohexol 350MG/ML 100ml bottle IV ONE ×2 (11:26→12:53)
--- NOTE | 2022-09-15 12:25 | NUR ---
Pt left for crime laboratory analyst procedure.
[2022-09-15] MEDS: normal saline 1000ml 1,000 ML IV SCH (13:15)
--- NOTE | 2022-09-15 13:30 | NUR ---
Pt arrived from general production laborer. 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 Skin warm to touch, skin blanchable. Written orders in place in chart. Reviewed. patient alert and oriented x 4. Addendum: 09/15/22 at 1643 by Maximilian Chester LVN 17 ml of air noted to left hemostatic wrist band
[2022-09-15] MEDS: baclofen 10mg tablet PO SCH ×3 (13:43→22:44)
[2022-09-15] MEDS: HYDROcodone/acetaminophen 10/325mg tab PO PRN ×2 (13:51→19:29)
--- NOTE | 2022-09-15 14:28 | NUR ---
Friend Negin brought x 1 Buproenprhine 15mcg/hr transdermal patch. medication being taken to pharmacy for processing.
[2022-09-15] MEDS ORDERED: albuterol 2.5 MG/3 ML nebule NEB SCH (15:00)
--- NOTE | 2022-09-15 15:30 | NUR ---
17ml of air removed from wristband as per written orders at 3ml q15min. No active bleeding noted. Pt skin is warm, blanchable skin noted. No numbness reported .
--- NOTE | 2022-09-15 18:06 | NUR ---
I have reviewed and agree with all interventions, assessments performed and documented by Maximilian ARELLANO.Problems reprioritized. Patient report given, questions answered & plan of care reviewed with Yvonne WHITEHEAD. Bedside report completed. Pt eating dinner. Call light in reach. Addendum: 09/15/22 at 1809 by My Sparks RN Amended: Links added.
--- NOTE | 2022-09-15 18:14 | NUR ---
Problems reprioritized. Patient report given, questions answered & plan of care reviewed with Lin WHITEHEAD. Bed side report given. Call light within reach. Pt sitting at bedside eating dinner. Addendum: 09/15/22 at 1815 by Maximilian Chester LVN Amended: Links added.
[2022-09-15] MEDS: heparin 10,000 units/1 ML INJ IV SCH (19:50)
[2022-09-15] MEDS: heparin 25,000 UNIT/250ml bag 250 ML IV PRN (19:56)
[2022-09-15] MEDS: atorvastatin 20mg tablet PO SCH (19:58)
[2022-09-15] MEDS: doxepin 25mg capsule PO SCH (19:58)
[2022-09-15] MEDS: magnesium hydroxide 30ml (MOM) UD suspension PO PRN (20:13)
[2022-09-15] MEDS: budesonide 0.5mg/2ml UD nebule IH SCH (20:23)
[2022-09-15] MEDS: temazepam 15mg capsule PO PRN (22:43)
[2022-09-16] VITALS (15 sets, daily range): BP systolic 106–177; BP diastolic 58–88
[2022-09-16] MEDS: HYDROcodone/acetaminophen 10/325mg tab PO PRN ×3 (00:53→20:47)
[2022-09-16] MEDS: DOBUTamine-DoBUTrex 500mg/D5W 250 ML IV SCH (00:56)
[2022-09-16] MEDS: vancomycin/NS 1 GM ADD-VANTAGE 250 ML IV SCH (02:54)
[2022-09-16] MEDS: ipratropium/albuterol 3ml nebule NEB SCH ×6 (03:02→23:28)
[2022-09-16] MEDS: baclofen 10mg tablet PO SCH ×6 (04:35→20:39)
--- NOTE | 2022-09-16 06:20 | NUR ---
Patient in room PCU 3017. I have received report from Yvonne ARELLANO and had the opportunity to ask questions and assume patient care. Will follow care of PT with Maximilian ARELLANO. Bedside report completed. Pt sleeping, Hep Gtt running @ 1000 units /Hr. Addendum: 09/16/22 at 0639 by My Sparks RN Amended: Links added.
--- NOTE | 2022-09-16 06:58 | NUR ---
Patient in room PCU 3017. I have received report from Lin WHITEHEAD and had the opportunity to ask questions and assume patient care. Bed side report given. Patient is right side lying. No distress noted. Call light within reach. Breating even and unlabored on oxygen @ 2LPM via nasal cannula. Addendum: 09/16/22 at 0700 by Maximilian Chester LVN Amended: Links added.
[2022-09-16] MEDS: methylPREDNISolone sod succ 125mg/2ml vial IV SCH ×2 (07:30→20:39)
[2022-09-16] MEDS: levoFLOXACIN-Levaquin 500mg/D5 100 ML IV SCH (07:30)
[2022-09-16] MEDS: budesonide 0.5mg/2ml UD nebule IH SCH ×2 (07:33→19:42)
[2022-09-16] MEDS: pantoprazole 40mg Tablet.DR PO SCH (07:50)
[2022-09-16] MEDS: carVEDilol 3.125mg tablet PO SCH ×2 (07:51→20:39)
[2022-09-16] MEDS: atorvastatin 20mg tablet PO SCH (07:51)
[2022-09-16] MEDS: aspirin 81mg, enteric-coated 1 TAB TABLET.DR PO SCH (07:52)
[2022-09-16] MEDS: potassium Cl 20 mEq SR tablet PO SCH (07:52)
[2022-09-16] MEDS: lisinopril 20mg tablet PO SCH (07:52)
[2022-09-16] MEDS: nicotine 21mg patch - 24 hr TD SCH (07:56)
[2022-09-16] MEDS: K and/or MAG REPLACEMENT MC SCH ×2 (08:00→18:55)
[2022-09-16 08:06] LABS: BASOPHILS % (AUTO) 0 % (0-1); EOSINOPHILS % (AUTO) 0 % (0-6); HEMOGLOBIN 10.5 g/dl (12.0-16.0); LYMPHOCYTES # (AUTO) 0.7 X10'3 (1.1-4.8); LYMPHOCYTES % (AUTO) 9.8 % (21-51); MEAN CORPUSCULAR HEMOGLOBIN 33.8 PG (27.0-31.0); MEAN CORPUSCULAR HGB CONC 33.9 g/dL (33.0-36.5); MEAN CORPUSCULAR VOLUME 99.7 FL (78-98); MEAN PLATELET VOLUME 7.2 FL (7.4-10.4); MONOCYTES # (AUTO) 0.4 X10'3 (0-0.9); MONOCYTES % (AUTO) 5.1 % (2-12); NEUTROPHILS # (AUTO) 6.2 X10'3 (1.8-7.7); NEUTROPHILS % (AUTO) 85.1 % (42-75); PLATELET COUNT 255 X10'3 (140-440); RED BLOOD COUNT 3.11 X10'6 (4.20-5.60); WHITE BLOOD COUNT 7.3 X10'3 (4.5-11.0)
[2022-09-16 08:30] LABS: ALANINE AMINOTRANSFERASE 22 U/L (12-78); ALBUMIN 2.9 G/DL (3.4-5.0); ALBUMIN/GLOBULIN RATIO 0.9 (1.1-1.5); ALKALINE PHOSPHATASE 94 IU/L (46-116); ANION GAP 8 (8-16); ASPARTATE AMINO TRANSFERASE 35 U/L (10-37); BILIRUBIN,TOTAL 0.4 MG/DL (0.1-1.0); BLOOD UREA NITROGEN 27 MG/DL (7-18); BUN/CREATININE RATIO 27.8 (6.6-38.0); CALCIUM 7.8 MG/DL (8.5-10.1); CHLORIDE 102 MMOL/L (99-107); CHOL/HDL RATIO 2.6 (0.00-4.99); CHOLESTEROL 161 MG/DL (0-200); CREATININE 0.97 MG/DL (0.40-0.90); GLUCOSE 108 MG/DL (70-104); HDL CHOLESTEROL 61 MG/DL (35-60); LDL CHOLESTEROL 80 MG/DL (50-100); POTASSIUM 4.9 MMOL/L (3.5-5.1); SODIUM 133 MMOL/L (135-145); TOTAL CARBON DIOXIDE 22.9 MMOL/L (24-32); TOTAL PROTEIN 6.3 G/DL (6.4-8.2); TRIGLYCERIDES 110 MG/DL (20-135); eGFR 58 ML/MIN
[2022-09-16] MEDS ORDERED: iohexol 350MG/ML 100ml bottle IV ONE (10:13)
[2022-09-16] MEDS ORDERED: FLU VACC QS2022-23(6MOS UP)/PF 60 MCG/0.5 ML SYRINGE IMVAC ONE (12:00)
[2022-09-16] MEDS ORDERED: pneumococcal 23-VAL P-sac vacc 25 mcg/0.5ml vial IMVAC ONE (12:00)
[2022-09-16] MEDS: heparin 25,000 UNIT/250ml bag 250 ML IV PRN (14:39)
[2022-09-16] MEDS ORDERED: ringers solution, lacted 1,000 ML IV ONE (15:25)
--- NOTE | 2022-09-16 16:13 | NUR ---
Flu and PNA vaccine unavailable. Pharmacy notified. They will bring up to the PCU floor
--- NOTE | 2022-09-16 18:04 | NUR ---
Problems reprioritized. Patient report given, questions answered & plan of care reviewed with Yvonne WHITEHEAD. I have reviewed and agree with all interventions, assessments performed and documented by Maximilian ARELLANO. bedside report completed. pt eating dinner. Call lg in reach. Addendum: 09/16/22 at 1806 by My Sparks RN Amended: Links added.
--- NOTE | 2022-09-16 18:06 | NUR ---
Problems reprioritized. Patient report given, questions answered & plan of care reviewed with Lin WHITEHEAD. Bed side report given. Patient eating food. Call light within reach. Pt breathing even and unlabored on o2 @ 2LPM via nasal cannula. no distress noted.
[2022-09-16] MEDS: heparin 10,000 units/1 ML INJ IV SCH (19:50)
[2022-09-16] MEDS: doxepin 25mg capsule PO SCH (20:38)
[2022-09-16] MEDS: normal saline 1000ml 1,000 ML IV SCH (22:35)
[2022-09-17] VITALS (9 sets, daily range): BP systolic 103–185; BP diastolic 47–80
[2022-09-17] MEDS: temazepam 15mg capsule PO PRN (00:04)
[2022-09-17] MEDS: baclofen 10mg tablet PO SCH ×6 (00:04→21:06)
[2022-09-17] MEDS: vancomycin/NS 1 GM ADD-VANTAGE 250 ML IV SCH (03:00)
[2022-09-17] MEDS: ipratropium/albuterol 3ml nebule NEB SCH ×7 (03:14→23:05)
[2022-09-17 04:42] LABS: BASOPHILS % (AUTO) 0.1 % (0-1); EOSINOPHILS % (AUTO) 0 % (0-6); HEMATOCRIT 28.4 % (35.0-45.0); HEMOGLOBIN 9.6 g/dl (12.0-16.0); LYMPHOCYTES # (AUTO) 0.5 X10'3 (1.1-4.8); LYMPHOCYTES % (AUTO) 10.6 % (21-51); MEAN CORPUSCULAR HEMOGLOBIN 33.4 PG (27.0-31.0); MEAN CORPUSCULAR HGB CONC 33.8 g/dL (33.0-36.5); MEAN CORPUSCULAR VOLUME 98.6 FL (78-98); MEAN PLATELET VOLUME 7.6 FL (7.4-10.4); MONOCYTES # (AUTO) 0.2 X10'3 (0-0.9); MONOCYTES % (AUTO) 3.6 % (2-12); NEUTROPHILS # (AUTO) 4.3 X10'3 (1.8-7.7); NEUTROPHILS % (AUTO) 85.7 % (42-75); PLATELET COUNT 219 X10'3 (140-440); RED BLOOD COUNT 2.88 X10'6 (4.20-5.60); RED CELL DISTRIBUTION WIDTH 13.8 % (11.5-14.5); WHITE BLOOD COUNT 5.1 X10'3 (4.5-11.0)
[2022-09-17] MEDS: magnesium hydroxide 30ml (MOM) UD suspension PO PRN (04:45)
[2022-09-17 04:53] LABS: ALANINE AMINOTRANSFERASE 26 U/L (12-78); ALBUMIN 2.9 G/DL (3.4-5.0); ALKALINE PHOSPHATASE 83 IU/L (46-116); ANION GAP 10 (8-16); ASPARTATE AMINO TRANSFERASE 28 U/L (10-37); BILIRUBIN,TOTAL 0.5 MG/DL (0.1-1.0); BLOOD UREA NITROGEN 28 MG/DL (7-18); BUN/CREATININE RATIO 25.9 (6.6-38.0); CALCIUM 8.1 MG/DL (8.5-10.1); CHLORIDE 100 MMOL/L (99-107); CREATININE 1.08 MG/DL (0.40-0.90); GLUCOSE 140 MG/DL (70-104); POTASSIUM 4.6 MMOL/L (3.5-5.1); SODIUM 131 MMOL/L (135-145); TOTAL CARBON DIOXIDE 20.9 MMOL/L (24-32); TOTAL PROTEIN 5.9 G/DL (6.4-8.2); eGFR 51 ML/MIN
[2022-09-17] MEDS ORDERED: LORazepam 2 mg/ml vial IV ONE (06:00)
[2022-09-17] MEDS ORDERED: famotidine 20mg tablet PO ONE (06:00)
[2022-09-17] MEDS: DOBUTamine-DoBUTrex 500mg/D5W 250 ML IV SCH ×2 (06:22→16:01)
--- NOTE | 2022-09-17 06:23 | NUR ---
Patient in room U 3017. I have received report from Lin WHITEHEAD and had the opportunity to ask questions and assume patient care. Bedside report given. Patient is sleeping. No distress. Right side lying. Bed in lowest position. Patient breathing on continuous oxygen @ 2LPM via nasal cannula. Addendum: 09/17/22 at 0625 by Maximilian Chester LVN Amended: Links added.
--- NOTE | 2022-09-17 06:29 | NUR ---
Patient in room PCU 3017. I have received report from Yvonne WHITEHEAD and had the opportunity to ask questions and assume patient care.Bedside report completed. Hep Gtt not infusing. Restated Hep gtt and replaced Dobutamine gtt bag. Will follow care of Pt with Maximilian ARELLANO. Pt sleeping, No distress. Addendum: 09/17/22 at 0632 by My Sparks RN Amended: Links added.
[2022-09-17] MEDS: atorvastatin 20mg tablet PO SCH (07:31)
[2022-09-17] MEDS: carVEDilol 3.125mg tablet PO SCH ×2 (07:31→21:06)
[2022-09-17] MEDS: aspirin 81mg, enteric-coated 1 TAB TABLET.DR PO SCH (07:32)
[2022-09-17] MEDS: pantoprazole 40mg Tablet.DR PO SCH (07:32)
[2022-09-17] MEDS: potassium Cl 20 mEq SR tablet PO SCH (07:32)
[2022-09-17] MEDS: lisinopril 20mg tablet PO SCH (07:32)
[2022-09-17] MEDS: nicotine 21mg patch - 24 hr TD SCH (07:35)
[2022-09-17] MEDS: K and/or MAG REPLACEMENT MC SCH ×2 (07:37→19:07)
[2022-09-17] MEDS: methylPREDNISolone sod succ 125mg/2ml vial IV SCH ×2 (07:40→20:00)
[2022-09-17] MEDS: budesonide 0.5mg/2ml UD nebule IH SCH ×3 (07:55→20:06)
--- NOTE | 2022-09-17 08:00 | NUR ---
Pt reports constipation. Pt was given MOM on previous shift. Floral Design Teacher will follow up. Addendum: 09/17/22 at 1158 by Maximilian Chester LVN Amended: Links added.
[2022-09-17] MEDS: HYDROcodone/acetaminophen 10/325mg tab PO PRN ×2 (10:44→22:44)
[2022-09-17] MEDS ORDERED: vitamin E 400 unit capsule PO SCH (10:50)
[2022-09-17] MEDS ORDERED: levoFLOXACIN 500mg tablet PO SCH (11:00)
[2022-09-17] MEDS: multivitamins, therapeutics tablet PO SCH ×3 (12:43→21:06)
[2022-09-17] MEDS: lactobacillus rhamnosus 10,000 MMU CELLS/CAPSULE PO SCH ×2 (12:43→17:37)
--- NOTE | 2022-09-17 12:58 | NUR ---
Pt has buprenoprhine 15mg/hr patch to left upper chest, baclofen 10mg q4hrs, and norco 10-325mg for breakthough pain. Pt alert and oriented x 4, some forgetfulness, No resp distress noted. Addendum: 09/17/22 at 1259 by Maximilian Chester LVN Amended: Links added.
[2022-09-17] MEDS: heparin 10,000 units/1 ML INJ IV SCH ×2 (14:10→20:57)
[2022-09-17] MEDS: normal saline 1000ml 1,000 ML IV SCH ×2 (15:15→15:53)
[2022-09-17] MEDS: vitamin E 400 unit capsule PO SCH (15:51)
[2022-09-17] MEDS: heparin 25,000 UNIT/250ml bag 250 ML IV PRN (17:22)
[2022-09-17] MEDS: psyllium seed 3.4 gm packet PO SCH (17:37)
[2022-09-17] MEDS: acetaminophen 325mg tablet PO PRN (17:42)
--- NOTE | 2022-09-17 18:10 | NUR ---
Problems reprioritized. Patient report given, questions answered & plan of care reviewed with Yvonne WHITEHEAD. Bedside report completed. Pt eating dinner. Call light in reach. Hep gtt infusing at 1400 units/hour. dobutamine @ 3 mics/kg/hr.I have reviewed and agree with all interventions, assessments performed and documented by Maximilian ARELLANO. Addendum: 09/17/22 at 1812 by My Sparks RN Amended: Links added.
--- NOTE | 2022-09-17 18:11 | NUR ---
Problems reprioritized. Patient report given, questions answered & plan of care reviewed with Lin WHITEHEAD. Bed side report given. Call light within reach. Pt was resting with no distress. Pt breathing even and unlabored on O2 @ 1.5LPM via nasal cannula. Addendum: 09/17/22 at 1812 by Maximilian Chester LVN Amended: Links added.
[2022-09-17] MEDS ORDERED: gabapentin 400mg capsule PO SCH (21:00)
[2022-09-17] MEDS: doxepin 25mg capsule PO SCH (21:05)
[2022-09-17] MEDS: diphenhydrAMINE 50 mg/ml inj IV PRN (22:42)
[2022-09-18] MEDS ORDERED: VANCOMYCIN LEVEL IV ONE (02:30)
[2022-09-18] MEDS: ipratropium/albuterol 3ml nebule NEB SCH ×6 (02:38→23:44)
[2022-09-18] MEDS: baclofen 10mg tablet PO SCH ×7 (03:08→23:54)
[2022-09-18] MEDS: acetaminophen 325mg tablet PO PRN (03:08)
[2022-09-18] MEDS: vancomycin/NS 1 GM ADD-VANTAGE 250 ML IV SCH (03:27)
[2022-09-18 04:10] LABS: BASOPHILS % (AUTO) 0.1 % (0-1); EOSINOPHILS % (AUTO) 0 % (0-6); HEMOGLOBIN 9.9 g/dl (12.0-16.0); LYMPHOCYTES # (AUTO) 1.1 X10'3 (1.1-4.8); LYMPHOCYTES % (AUTO) 20.3 % (21-51); MEAN CORPUSCULAR HEMOGLOBIN 33.9 PG (27.0-31.0); MEAN CORPUSCULAR HGB CONC 34.3 g/dL (33.0-36.5); MEAN CORPUSCULAR VOLUME 98.8 FL (78-98); MEAN PLATELET VOLUME 7.8 FL (7.4-10.4); MONOCYTES # (AUTO) 0.6 X10'3 (0-0.9); NEUTROPHILS # (AUTO) 3.8 X10'3 (1.8-7.7); NEUTROPHILS % (AUTO) 68.6 % (42-75); PLATELET COUNT 206 X10'3 (140-440); RED BLOOD COUNT 2.93 X10'6 (4.20-5.60); RED CELL DISTRIBUTION WIDTH 13.8 % (11.5-14.5); WHITE BLOOD COUNT 5.5 X10'3 (4.5-11.0)
[2022-09-18 04:16] LABS: ALANINE AMINOTRANSFERASE 26 U/L (12-78); ALBUMIN 2.9 G/DL (3.4-5.0); ALKALINE PHOSPHATASE 78 IU/L (46-116); ANION GAP 8 (8-16); ASPARTATE AMINO TRANSFERASE 25 U/L (10-37); BILIRUBIN,TOTAL 0.5 MG/DL (0.1-1.0); BLOOD UREA NITROGEN 29 MG/DL (7-18); BUN/CREATININE RATIO 28.4 (6.6-38.0); CALCIUM 7.9 MG/DL (8.5-10.1); CHLORIDE 101 MMOL/L (99-107); CREATININE 1.02 MG/DL (0.40-0.90); GLUCOSE 115 MG/DL (70-104); POTASSIUM 4.1 MMOL/L (3.5-5.1); SODIUM 132 MMOL/L (135-145); TOTAL CARBON DIOXIDE 22.8 MMOL/L (24-32); TOTAL PROTEIN 5.8 G/DL (6.4-8.2); VANCOMYCIN,TROUGH 6.8 UG/ML (6.0-14.0); eGFR 54 ML/MIN
[2022-09-18 06:00] VITALS: BP 132/69
[2022-09-18] MEDS: heparin 25,000 UNIT/250ml bag 250 ML IV PRN ×3 (07:46→13:43)
[2022-09-18] MEDS: normal saline 1000ml 1,000 ML IV SCH (07:55)
[2022-09-18] MEDS: vitamin E 400 unit capsule PO SCH (08:00)
[2022-09-18] MEDS: K and/or MAG REPLACEMENT MC SCH ×2 (08:00→20:00)
--- NOTE | 2022-09-18 08:45 | NUR ---
Initial: Pt admitted w/ COPD and CHF exacerbations and ELFEGO per EMR. Currently on Regular diet w/ avg intake 50% of meals which meets approximately 83% of est protein and energy needs. Pt also planned for CABG sometime this week per MD notes. [facility] 09/17. Will continue to monitor. Recs; 1. Continue Regular diet 2. Monitor need for ONS s/p procedure 3. Bowel care per rx 4. Scaled wts Addendum: 09/18/22 at [address] Amended: Links added.
[2022-09-18] MEDS ORDERED: MESSAGE TO NURSING PO ONE ×4 (09:15→10:00)
[2022-09-18] MEDS ORDERED: dextrose 50%-water 50ml dispensing syringe IV PRN (09:15)
[2022-09-18] MEDS ORDERED: MESSAGE TO PHARMACY IJ ONE (09:15)
[2022-09-18] MEDS: HYDROcodone/acetaminophen 10/325mg tab PO PRN ×3 (09:40→22:26)
[2022-09-18] MEDS: pantoprazole 40mg Tablet.DR PO SCH (09:56)
[2022-09-18] MEDS: atorvastatin 20mg tablet PO SCH (09:56)
[2022-09-18] MEDS: carVEDilol 3.125mg tablet PO SCH ×2 (09:57→20:31)
[2022-09-18] MEDS: multivitamins, therapeutics tablet PO SCH ×4 (09:57→20:32)
[2022-09-18] MEDS: aspirin 81mg, enteric-coated 1 TAB TABLET.DR PO SCH (09:57)
[2022-09-18] MEDS: lactobacillus rhamnosus 10,000 MMU CELLS/CAPSULE PO SCH ×3 (09:57→17:00)
[2022-09-18] MEDS: lisinopril 20mg tablet PO SCH (09:57)
[2022-09-18] MEDS: methylPREDNISolone sod succ 125mg/2ml vial IV SCH (09:58)
[2022-09-18] MEDS: nicotine 21mg patch - 24 hr TD SCH (09:58)
[2022-09-18] MEDS: potassium Cl 20 mEq SR tablet PO SCH (09:58)
[2022-09-18] MEDS: psyllium seed 3.4 gm packet PO SCH ×2 (09:58→16:29)
[2022-09-18] MEDS ORDERED: levoFLOXACIN 250mg tablet PO SCH (11:00)
[2022-09-18 11:30] VITALS: BP 106/57
--- NOTE | 2022-09-18 16:35 | NUR ---
PFT done at [facility] 09/06/2022. Copy of PFT results are in patient chart. Addendum: 09/18/22 at 1636 by Kulwinder Pepper RT Amended: Links added.
[2022-09-18 17:01] VITALS: BP 111/63
[2022-09-18 18:00] VITALS: BP 97/49
--- NOTE | 2022-09-18 19:19 | NUR ---
Problems reprioritized. Patient report given, questions answered & plan of care reviewed with CHARLEY Ceballos.
[2022-09-18] MEDS: budesonide 0.5mg/2ml UD nebule IH SCH (19:40)
[2022-09-18] MEDS: mupirocin 2% ointment 22GM NS SCH (20:00)
[2022-09-18] MEDS: doxepin 25mg capsule PO SCH (20:31)
[2022-09-18] MEDS: gabapentin 100mg capsule PO SCH (20:34)
[2022-09-18 22:00] VITALS: BP 119/58
[2022-09-18] MEDS: DOBUTamine-DoBUTrex 500mg/D5W 250 ML IV SCH (23:37)
[2022-09-19] VITALS (23 sets, daily range): BP systolic 78–167; BP diastolic 44–80
[2022-09-19] MEDS: normal saline 1000ml 1,000 ML IV SCH ×2 (00:35→17:15)
[2022-09-19] MEDS: diphenhydrAMINE 50 mg/ml inj IV PRN (02:02)
[2022-09-19] MEDS ORDERED: VANCOMYCIN LEVEL IV ONE (02:30)
[2022-09-19] MEDS: VANCOMYCIN 1,500MG in NS 300ml IVPB IV SCH (03:00)
[2022-09-19 03:15] LABS: BASOPHILS % (AUTO) 0.1 % (0-1); EOSINOPHILS % (AUTO) 0.1 % (0-6); HEMATOCRIT 29.1 % (35.0-45.0); HEMOGLOBIN 9.7 g/dl (12.0-16.0); LYMPHOCYTES % (AUTO) 19.4 % (21-51); MEAN CORPUSCULAR HEMOGLOBIN 33.1 PG (27.0-31.0); MEAN CORPUSCULAR HGB CONC 33.3 g/dL (33.0-36.5); MEAN CORPUSCULAR VOLUME 99.3 FL (78-98); MEAN PLATELET VOLUME 7.7 FL (7.4-10.4); MONOCYTES # (AUTO) 0.6 X10'3 (0-0.9); MONOCYTES % (AUTO) 10.8 % (2-12); NEUTROPHILS # (AUTO) 3.6 X10'3 (1.8-7.7); NEUTROPHILS % (AUTO) 69.6 % (42-75); PLATELET COUNT 218 X10'3 (140-440); RED BLOOD COUNT 2.93 X10'6 (4.20-5.60); RED CELL DISTRIBUTION WIDTH 13.7 % (11.5-14.5); WHITE BLOOD COUNT 5.2 X10'3 (4.5-11.0)
[2022-09-19] MEDS: ipratropium/albuterol 3ml nebule NEB SCH ×6 (03:18→23:08)
[2022-09-19 03:23] LABS: ALANINE AMINOTRANSFERASE 31 U/L (12-78); ALBUMIN 2.8 G/DL (3.4-5.0); ALKALINE PHOSPHATASE 74 IU/L (46-116); ANION GAP 8 (8-16); ASPARTATE AMINO TRANSFERASE 27 U/L (10-37); BILIRUBIN,TOTAL 0.5 MG/DL (0.1-1.0); BLOOD UREA NITROGEN 26 MG/DL (7-18); CALCIUM 7.9 MG/DL (8.5-10.1); CHLORIDE 99 MMOL/L (99-107); CREATININE 1.04 MG/DL (0.40-0.90); GLUCOSE 113 MG/DL (70-104); MAGNESIUM 2.2 MG/DL (1.5-2.4); PHOSPHORUS 3.5 MG/DL (2.3-4.5); POTASSIUM 4.1 MMOL/L (3.5-5.1); SODIUM 133 MMOL/L (135-145); TOTAL CARBON DIOXIDE 26.5 MMOL/L (24-32); TOTAL PROTEIN 5.7 G/DL (6.4-8.2); eGFR 53 ML/MIN
[2022-09-19] MEDS: acetaminophen 325mg tablet PO PRN (03:44)
[2022-09-19 03:59] LABS: VANCOMYCIN,TROUGH 9.6 UG/ML (6.0-14.0)
[2022-09-19] MEDS: baclofen 10mg tablet PO SCH ×5 (04:00→20:00)
[2022-09-19] MEDS: mupirocin 2% ointment 22GM NS SCH (05:15)
[2022-09-19] MEDS ORDERED: ceFAZolin 1000mg inj ONE ×2 (05:52→12:15)
[2022-09-19] MEDS ORDERED: epiNEPHrine 1 mg/ml inj ONE (05:52)
[2022-09-19] MEDS ORDERED: famotidine 20mg tablet PO ONE ×2 (06:00→07:30)
[2022-09-19] MEDS ORDERED: BUPIVAcaine 0.5% inj/PF 30 ML ONE ×2 (06:10→09:21)
[2022-09-19 06:42] LABS: ISTAT HGB ART 10.9 g/dl (12.0-16.0); ISTAT Hct ART 32 %PCV (35-45); ISTAT O2 SATURATION ARTERIAL 93 % (95-98); ISTAT SOURCE BLNK
[2022-09-19 06:43] LABS: ISTAT Hct MIX 31 %PCV (35-45); ISTAT O2 SATURATION MIX VENOUS 60 % (60-80); ISTAT SOURCE BLNK
[2022-09-19] MEDS: psyllium seed 3.4 gm packet PO SCH (07:00)
[2022-09-19] MEDS ORDERED: MIDAZolam 1mg/ml 10ml vial ONE (07:10)
[2022-09-19] MEDS ORDERED: fentaNYL /PF 50mcg/ml 5ml ampule ONE (07:11)
[2022-09-19] MEDS: budesonide 0.5mg/2ml UD nebule IH SCH ×2 (07:26→19:09)
[2022-09-19] MEDS ORDERED: LORazepam 2 mg/ml vial IV ONE (07:30)
[2022-09-19] MEDS: pantoprazole 40mg Tablet.DR PO SCH (07:30)
[2022-09-19] MEDS: carVEDilol 3.125mg tablet PO SCH ×2 (07:42→20:00)
--- NOTE | 2022-09-19 07:47 | NUR ---
CVOR on floor. Gave ativan, pepcid, and started vanco per orders.
--- NOTE | 2022-09-19 07:55 | NUR ---
Taken down to OR. Gave AM dose of coreg 3.125 per protocol Addendum: 09/19/22 at 0805 by Arlette Lay RN JESSICA martinez dose.
[2022-09-19] MEDS ORDERED: gabapentin 400mg capsule PO ONE (08:00)
[2022-09-19] MEDS: K and/or MAG REPLACEMENT MC SCH ×2 (08:00→20:00)
[2022-09-19] MEDS ORDERED: NORepinephrine bitart. inj. IV ONE (08:00)
[2022-09-19] MEDS ORDERED: LIDOcaine 2% (20 mg/ml) 5ml cardiac syringe ONE (08:00)
[2022-09-19] MEDS ORDERED: protamine sulf. 10mg/ml inj. IV ONE (08:00)
[2022-09-19] MEDS ORDERED: heparin 1,000 units/ml 10ml inj ONE (08:00)
[2022-09-19] MEDS ORDERED: albumin (human) 25% 100 ML IV solution IV ONE (08:00)
[2022-09-19] MEDS ORDERED: isoflurane 100ml inhalation liquid IH ONE (08:00)
[2022-09-19] MEDS ORDERED: insulin glargine (Lantus) pen - multi-dose SQ PRN ×2 (08:00→12:05)
[2022-09-19] MEDS: atorvastatin 20mg tablet PO SCH (08:00)
[2022-09-19] MEDS ORDERED: calcium chloride 100 MG/1 ML inj IV ONE (08:00)
[2022-09-19] MEDS: potassium Cl 20 mEq SR tablet PO SCH (08:00)
[2022-09-19] MEDS ORDERED: magnesium sulf 1 GM/2 ML ONE (08:00)
[2022-09-19] MEDS ORDERED: vancomycin/NS 1 GM ADD-VANTAGE 250 ML IV ONE ×2 (08:00→20:00)
[2022-09-19] MEDS: nicotine 21mg patch - 24 hr TD SCH (08:00)
[2022-09-19] MEDS: vitamin E 400 unit capsule PO SCH (08:00)
[2022-09-19] MEDS ORDERED: DOBUTamine/D5W 500mg/250ml premix IV ONE (08:00)
[2022-09-19] MEDS: multivitamins, therapeutics tablet PO SCH ×4 (08:00→21:00)
[2022-09-19] MEDS ORDERED: predniSONE 20 mg tablet PO SCH (08:00)
[2022-09-19] MEDS ORDERED: sodium bicarbonate (8.4%) 1 mEq/ml syringe ONE (08:00)
[2022-09-19] MEDS: aspirin 81mg, enteric-coated 1 TAB TABLET.DR PO SCH (08:00)
[2022-09-19] MEDS: lisinopril 20mg tablet PO SCH (08:00)
[2022-09-19] MEDS ORDERED: heparin 10,000 units/1 ML INJ ONE (08:00)
[2022-09-19] MEDS ORDERED: methylPREDNISolone sod succ 1000mg vial ONE (08:00)
[2022-09-19] MEDS ORDERED: cefazolin/dext.iso 2gm/50ml 50 ML IV ONE (08:00)
[2022-09-19] MEDS ORDERED: nitroGLYCERIN in D5W 50mg/250ml (Tridil) infusion IV ONE (08:00)
[2022-09-19] MEDS ORDERED: albumin (Human) 5% 250ml BOTTLE IV ONE (08:00)
[2022-09-19] MEDS ORDERED: aminocaproic acid 250 MG/1 ML inj. ONE (08:00)
[2022-09-19] MEDS: lactobacillus rhamnosus 10,000 MMU CELLS/CAPSULE PO SCH (08:30)
[2022-09-19 09:06] LABS: ABG BASE EXCESS -4.3 mmol/L (-2.0-2.0); ABG HCO3 21.9 mmol/L (22.0-26.0); ABG OXYGEN SATURATION 99.8 % (94-97); ABG PCO2 45.5 mmHg (32.0-45.0); ABG PO2 186.7 mmHg (75.0-100.0); CL (ABG) 100 mmol/L (99-107); FCOHb 1.3 % (0.0-3.9); FMetHb 0.2 % (0.0-1.5); FO2Hb 98.3 % (94-97); GLUCOSE (ABG) 121 mg/dl (70-104); IONIZED CA (ABG) 1.12 mmol/L (1.10-1.30); K (ABG) 3.9 mmol/L (3.5-5.1); TOTAL HEMOGLOBIN 10.2 G/dl (12.0-16.0)
[2022-09-19] MEDS ORDERED: phenylephrine 10mg/ml inj. -priapism dosing ONE (09:31)
[2022-09-19] MEDS ORDERED: propofol inj 20 ML IV ONE (09:31)
[2022-09-19] MEDS ORDERED: LIDOcaine 2% (20mg/ml) 5ml vial ONE (09:31)
[2022-09-19] MEDS ORDERED: rocuronium 10mg/ml inj IV ONE ×4 (09:31)
[2022-09-19] MEDS ORDERED: papaverine 30 mg/ml 2ml inj. ICAR ONE (09:41)
[2022-09-19] MEDS ORDERED: BUPIVAcaine 0.5% inj/PF 30 ml vial IJ ONE (09:41)
[2022-09-19] MEDS ORDERED: fentaNYL/PF 50MCG/1 ML 2ML syringe IV PRN (10:00)
[2022-09-19 10:13] LABS: ABG BASE EXCESS -4.4 mmol/L (-2.0-2.0); ABG HCO3 20.8 mmol/L (22.0-26.0); ABG OXYGEN SATURATION 99.7 % (94-97); ABG PCO2 38.4 mmHg (32.0-45.0); ABG PO2 401.2 mmHg (75.0-100.0); CL (ABG) 101 mmol/L (99-107); FCOHb 1.8 % (0.0-3.9); FMetHb 0.3 % (0.0-1.5); FO2Hb 97.6 % (94-97); GLUCOSE (ABG) 161 mg/dl (70-104); IONIZED CA (ABG) 0.89 mmol/L (1.10-1.30); K (ABG) 4.5 mmol/L (3.5-5.1); TOTAL HEMOGLOBIN 7.4 G/dl (12.0-16.0)
[2022-09-19] MEDS ORDERED: FENTANYL-0.9 % NACL/PF 100 ML IV PRN (10:16)
[2022-09-19] MEDS: propofol 1000mg/100ml bottle 100 ML IV SCH (10:20)
[2022-09-19 10:40] LABS: ABG BASE EXCESS VENOUS -0.4 mmol/L (-2.0 - 2.0); ABG HCO3 VENOUS 24.6 mmol/L (21.0-28.0); ABG PCO2 VENOUS 41.7 mmHg (38.0-51.0); ABG PO2 VENOUS 52.9 mmHg (25.0-35.0); CL (ABG) 99 mmol/L (99-107); FCOHb VENOUS 1.7 % (0.0- 3.9); FHHb VENOUS 10.4 %; FMetHb VENOUS 0.3 % (0.0 - 0.5); FO2Hb VENOUS 87.6 %; GLUCOSE (ABG) 139 mg/dl (70-104); IONIZED CA (ABG) 0.95 mmol/L (1.10-1.30); TOTAL HEMOGLOBIN 9.3 G/dl (12.0-16.0)
--- NOTE | 2022-09-19 10:47 | NUR ---
Cleaned up emar for my shift .I did not give preop dose of gabapentin, that was an error on my part, it was missed. Addendum: 09/20/22 at 1136 by Arlette Lay RN Finished getting report on my 5 patients at 0710 on 09/19 (out of ratio). I was still working on Twelve hour chart checks when CVOR came up on the floor about 0740ish. [place] had already been completed and all medications were hanging when I came on shift. I had previously called them since we start Vanco IVPB 1 hour before per protocol, but they did not answer the phone. I started the vanco per their request but the only vanco in emar was 0300 dose. I could not pull ativan and pepcid because the orders were from 09/17. Had to call pharmacy to correct. This took additional time. I finally was able to give ativan, pepcid, and beta sonja per protocol. I was not able to give gabapentin, it was a medication that I failed to give due to the situation of working out of ratio and trying to get her situated.
[2022-09-19 11:04] LABS: ACT @ 1.70 U 278 SEC (193-297); ACT @ 2.84 U 357 SEC (260-420); BASELINE ACT 128 SEC (101-148); PATIENT WEIGHT 66.0k KG
[2022-09-19 11:24] LABS: ABG BASE EXCESS 2.3 mmol/L (-2.0-2.0); ABG HCO3 26.4 mmol/L (22.0-26.0); ABG OXYGEN SATURATION 99.8 % (94-97); ABG PCO2 39.2 mmHg (32.0-45.0); ABG PO2 315.9 mmHg (75.0-100.0); CL (ABG) 99 mmol/L (99-107); FCOHb 1.4 % (0.0-3.9); FMetHb 0.3 % (0.0-1.5); FO2Hb 98.1 % (94-97); GLUCOSE (ABG) 126 mg/dl (70-104); IONIZED CA (ABG) 1.34 mmol/L (1.10-1.30); K (ABG) 3.8 mmol/L (3.5-5.1); TOTAL HEMOGLOBIN 8.4 G/dl (12.0-16.0)
[2022-09-19 11:39] LABS: ABG BASE EXCESS -3.7 mmol/L (-2.0-2.0); ABG HCO3 20.7 mmol/L (22.0-26.0); ABG OXYGEN SATURATION 97.9 % (94-97); ABG PCO2 34.8 mmHg (32.0-45.0); CL (ABG) 102 mmol/L (99-107); FCOHb 1.1 % (0.0-3.9); FMetHb 0.3 % (0.0-1.5); FO2Hb 96.5 % (94-97); GLUCOSE (ABG) 118 mg/dl (70-104); IONIZED CA (ABG) 1.12 mmol/L (1.10-1.30); K (ABG) 3.9 mmol/L (3.5-5.1); TOTAL HEMOGLOBIN 9.2 G/dl (12.0-16.0)
[2022-09-19] MEDS ORDERED: albumin (Human) 5% 250ml 250 ML IV ONE (11:54)
[2022-09-19] MEDS ORDERED: ondansetron/PF 4mg/2ml inj ONE (12:03)
[2022-09-19] MEDS ORDERED: dexamethasone sod phosphate 4mg/ml inj. ONE (12:03)
[2022-09-19] MEDS ORDERED: Neutra Phos packet PO PRN (12:05)
[2022-09-19] MEDS ORDERED: nitroGLYCERIN-Tridil 50MG/D5W 250 ML IV PRN (12:05)
[2022-09-19] MEDS ORDERED: bisacodyl 10mg suppository rectal RC PRN (12:05)
[2022-09-19] MEDS ORDERED: potassium Cl 20 mEq SR tablet PO PRN (12:05)
[2022-09-19] MEDS ORDERED: potassium Cl 40MEQ/1/2NS 520ml 520 ML IV PRN (12:05)
[2022-09-19] MEDS ORDERED: magnesium hydroxide 30ml (MOM) UD suspension PO PRN (12:05)
[2022-09-19] MEDS ORDERED: niCARDipine-NS 40mg/200ml IVPB 200 ML IV PRN (12:05)
[2022-09-19] MEDS ORDERED: dextrose 50%-water 50ml dispensing syringe IV PRN (12:05)
[2022-09-19] MEDS ORDERED: sodium phosphate inj. 15 MMOL in dextrose 5%-water 250 ML IV PRN (12:05)
[2022-09-19] MEDS ORDERED: potassium Cl 40MEQ/270ML bag 250 ML IV PRN (12:05)
[2022-09-19] MEDS ORDERED: mineral oil 133ml enema RC PRN (12:05)
[2022-09-19] MEDS ORDERED: DOBUTamine-DoBUTrex 500mg/D5W 250 ML IV PRN (12:05)
[2022-09-19] MEDS ORDERED: potassium CL 10mEq/100ml bag 100 ML IV PRN (12:05)
[2022-09-19] MEDS ORDERED: sodium phosphate inj. 30 MMOL in dextrose 5%-water 250 ML IV PRN (12:05)
[2022-09-19] MEDS ORDERED: HYDROcodone/acetaminophen 10/325mg tab PO PRN (12:05)
[2022-09-19] MEDS ORDERED: Insulin Reg/NS 100units/100mL 100 ML IV SCH (12:05)
[2022-09-19] MEDS ORDERED: magnesium citrate 296ml oral solution PO PRN (12:05)
[2022-09-19] MEDS ORDERED: metoclopramide 5 mg/ml inj IV PRN (12:05)
[2022-09-19] MEDS ORDERED: magnesium 4gm in 100ml NS 100 ML IV PRN (12:05)
--- NOTE | 2022-09-19 12:40 | NUR ---
Toes on right foot purple on admit to room. Pulses checked with Doppler and are auscultated. Blanchable.
--- NOTE | 2022-09-19 12:50 | NUR ---
Delivered all patient belongings to room 2013.
[2022-09-19 13:08] LABS: ABG BASE EXCESS -2.4 mmol/L (-2.0-2.0); ABG HCO3 25.4 mmol/L (22.0-26.0); ABG OXYGEN SATURATION 96.3 % (94-97); ABG PCO2 (T) 58.2 mmHg (32.0-45.0); ABG PO2 (T) 97.7 mmHg (75.0-100.0); FCOHb 1.1 % (0.0-3.9); FMetHb 0.3 % (0.0-1.5); PATIENT TEMPERATURE 36.8; PEEP 5 cm H2O; RESPIRATORY RATE 12 b/min; TIDAL VOLUME 450 mL
[2022-09-19 13:21] LABS: BASOPHILS % (AUTO) 0.1 % (0-1); EOSINOPHILS % (AUTO) 0.3 % (0-6); HEMATOCRIT 29.8 % (35.0-45.0); HEMOGLOBIN 9.9 g/dl (12.0-16.0); LYMPHOCYTES # (AUTO) 0.7 X10'3 (1.1-4.8); LYMPHOCYTES % (AUTO) 6.3 % (21-51); MEAN CORPUSCULAR HEMOGLOBIN 31.4 PG (27.0-31.0); MEAN CORPUSCULAR HGB CONC 33.3 g/dL (33.0-36.5); MEAN CORPUSCULAR VOLUME 94.4 FL (78-98); MEAN PLATELET VOLUME 7.7 FL (7.4-10.4); MONOCYTES # (AUTO) 0.9 X10'3 (0-0.9); MONOCYTES % (AUTO) 8.2 % (2-12); NEUTROPHILS # (AUTO) 9.5 X10'3 (1.8-7.7); NEUTROPHILS % (AUTO) 85.1 % (42-75); PLATELET COUNT 155 X10'3 (140-440); RED BLOOD COUNT 3.16 X10'6 (4.20-5.60); RED CELL DISTRIBUTION WIDTH 16.2 % (11.5-14.5); WHITE BLOOD COUNT 11.2 X10'3 (4.5-11.0)
[2022-09-19] MEDS: sodium chloride 0.45% 1,000 ML IV SCH (13:26)
[2022-09-19] MEDS: Insulin Reg/NS 100units/100mL 100 ML IV SCH ×2 (13:27→18:35)
[2022-09-19] MEDS: nitroGLYCERIN-Tridil 50MG/D5W 250 ML IV SCH (13:28)
[2022-09-19 13:37] LABS: ALANINE AMINOTRANSFERASE 34 U/L (12-78); ALBUMIN 2.4 G/DL (3.4-5.0); ALBUMIN/GLOBULIN RATIO 1.5 (1.1-1.5); ALKALINE PHOSPHATASE 46 IU/L (46-116); ANION GAP 6 (8-16); ASPARTATE AMINO TRANSFERASE 58 U/L (10-37); BILIRUBIN,TOTAL 0.8 MG/DL (0.1-1.0); BLOOD UREA NITROGEN 18 MG/DL (7-18); BUN/CREATININE RATIO 22.8 (6.6-38.0); CALCIUM 6.9 MG/DL (8.5-10.1); CHLORIDE 104 MMOL/L (99-107); CREATININE 0.79 MG/DL (0.40-0.90); GLUCOSE 142 MG/DL (70-104); MAGNESIUM 2.3 MG/DL (1.5-2.4); PHOSPHORUS 2.9 MG/DL (2.3-4.5); POTASSIUM 3.8 MMOL/L (3.5-5.1); SODIUM 136 MMOL/L (135-145); TOTAL CARBON DIOXIDE 25.6 MMOL/L (24-32); eGFR 73 ML/MIN
[2022-09-19 14:13] LABS: APTT 38 SECONDS (22-32)
[2022-09-19] MEDS: potassium Cl 20mEq/100mL bag 100 ML IV PRN ×2 (14:27→15:26)
[2022-09-19] MEDS: magnesium 2GM in 50ml NS 50 ML IV PRN (14:29)
--- NOTE | 2022-09-19 14:33 | NUR ---
Swelling and crepitus noted to pt;s neck. Gtts moved to cordis. CXR obtained. Dr. David notified. Notified Dr. David of CT output of 650. Will check coags.
--- NOTE | 2022-09-19 14:33 | NUR ---
Received to room 2013 at 1240, accompanied by MDs and surgical crew. Placed on ventilator, to telemetry monitor, arterial line and PA line pressure zeroed & monitored. Chest tubes to suction at 20 cm. Carmona cath to gravity drainage. Dressings are dry and intact. See assessment record. All vasoactive drugs are infusing via central line.
[2022-09-19] MEDS: morphine 4 MG/ML inj SYRINge IV PRN ×2 (14:39→19:10)
[2022-09-19 15:14] LABS: APTT 36 SECONDS (22-32)
[2022-09-19] MEDS: albumin (Human) 5% 250ml 250 ML IV PRN ×3 (15:47→17:49)
[2022-09-19] MEDS: ceFAZolin/D5W- 1GM premix 50 ML IV SCH (16:18)
--- NOTE | 2022-09-19 16:20 | NUR ---
OGT has leak at the distal port (where the debbie valve is.) Won't dc until ETT comes out as to not jeopardize ETT.
--- NOTE | 2022-09-19 18:30 | NUR ---
I have received report and assumed care of pt, Pt resting in bed rise and fall of chest cavity equal and symmetrical, pt has a NS bolus infusing and her 3rd dose of albumin infusing, Hemodynamic monitoring complete, air leak in chest tubes noted. Pt nodes head to yes no questions, Dr Cha rounded on pt, updated on pts condition orders for low dose Levophed obtained, as well as updated on Radial art line not working, art line taken out pressure held hemostasis obtained.
[2022-09-19] MEDS: NORepinephrine 8mg/ 250ml NS 250 ML IV SCH (18:59)
[2022-09-19 19:49] LABS: BASOPHILS % (AUTO) 0.1 % (0-1); EOSINOPHILS % (AUTO) 0 % (0-6); HEMATOCRIT 22.6 % (35.0-45.0); HEMOGLOBIN 7.7 g/dl (12.0-16.0); LYMPHOCYTES # (AUTO) 0.4 X10'3 (1.1-4.8); LYMPHOCYTES % (AUTO) 2.8 % (21-51); MEAN CORPUSCULAR HEMOGLOBIN 31.9 PG (27.0-31.0); MEAN CORPUSCULAR VOLUME 93.9 FL (78-98); MEAN PLATELET VOLUME 7.9 FL (7.4-10.4); MONOCYTES # (AUTO) 0.7 X10'3 (0-0.9); MONOCYTES % (AUTO) 4.9 % (2-12); NEUTROPHILS # (AUTO) 12.5 X10'3 (1.8-7.7); NEUTROPHILS % (AUTO) 92.2 % (42-75); PLATELET COUNT 148 X10'3 (140-440); RED BLOOD COUNT 2.41 X10'6 (4.20-5.60); RED CELL DISTRIBUTION WIDTH 16.5 % (11.5-14.5); WHITE BLOOD COUNT 13.6 X10'3 (4.5-11.0)
[2022-09-19 19:59] LABS: ALBUMIN 3.1 G/DL (3.4-5.0); ANION GAP 6 (8-16); BLOOD UREA NITROGEN 19 MG/DL (7-18); BUN/CREATININE RATIO 23.8 (6.6-38.0); CALCIUM 6.9 MG/DL (8.5-10.1); CHLORIDE 103 MMOL/L (99-107); GLUCOSE 152 MG/DL (70-104); MAGNESIUM 2.7 MG/DL (1.5-2.4); PHOSPHORUS 4.8 MG/DL (2.3-4.5); POTASSIUM 4.9 MMOL/L (3.5-5.1); SODIUM 134 MMOL/L (135-145); TOTAL CARBON DIOXIDE 24.6 MMOL/L (24-32); eGFR 72 ML/MIN
[2022-09-19] MEDS: sennosides/docusate sodium tablet PO SCH (20:00)
[2022-09-19 20:56] LABS: APTT 44 SECONDS (22-32)
[2022-09-19] MEDS: doxepin 25mg capsule PO SCH (21:00)
[2022-09-19] MEDS ORDERED: atorvastatin 10mg tablet PO SCH (21:00)
[2022-09-19] MEDS: gabapentin 100mg capsule PO SCH (21:00)
--- NOTE | 2022-09-19 21:00 | NUR ---
Spoke to Dr. Abernathy regarding pts chest tube output, pt on low dose Levophed, decrease in h/h new orders for 1 unit prbc. Addendum: 09/20/22 at 0504 by Mallika Valdez RN Dr Abernathy also wanted baclofen, Neurontin and Sinequan held tonight and he will reevaluate in the am for the need to continue them
[2022-09-19] MEDS: mupirocin 2% nasal ointment 1gm UD NS SCH (22:30)
[2022-09-20] VITALS (31 sets, daily range): BP systolic 85–130; BP diastolic 48–68
[2022-09-20] MEDS: ceFAZolin/D5W- 1GM premix 50 ML IV SCH ×4 (00:35→23:56)
[2022-09-20] MEDS: ondansetron/PF 4mg/2ml inj IV PRN (00:44)
[2022-09-20] MEDS: morphine 4 MG/ML inj SYRINge IV PRN ×2 (00:44→02:54)
[2022-09-20] MEDS: VANCOMYCIN 1,500MG in NS 300ml IVPB IV SCH ×2 (03:00→03:32)
[2022-09-20] MEDS: ipratropium/albuterol 3ml nebule NEB SCH ×6 (03:14→23:00)
[2022-09-20 03:39] LABS: BASOPHILS % (AUTO) 0.1 % (0-1); EOSINOPHILS % (AUTO) 0 % (0-6); HEMATOCRIT 27.6 % (35.0-45.0); HEMOGLOBIN 9.4 g/dl (12.0-16.0); LYMPHOCYTES # (AUTO) 0.7 X10'3 (1.1-4.8); LYMPHOCYTES % (AUTO) 6.3 % (21-51); MEAN CORPUSCULAR HEMOGLOBIN 32.1 PG (27.0-31.0); MEAN CORPUSCULAR HGB CONC 33.9 g/dL (33.0-36.5); MEAN CORPUSCULAR VOLUME 94.6 FL (78-98); MONOCYTES # (AUTO) 0.8 X10'3 (0-0.9); MONOCYTES % (AUTO) 7.3 % (2-12); NEUTROPHILS % (AUTO) 86.3 % (42-75); PLATELET COUNT 150 X10'3 (140-440); RED BLOOD COUNT 2.92 X10'6 (4.20-5.60); RED CELL DISTRIBUTION WIDTH 16.1 % (11.5-14.5); WHITE BLOOD COUNT 11.6 X10'3 (4.5-11.0)
[2022-09-20 03:53] LABS: ALANINE AMINOTRANSFERASE 31 U/L (12-78); ALKALINE PHOSPHATASE 36 IU/L (46-116); ANION GAP 7 (8-16); ASPARTATE AMINO TRANSFERASE 75 U/L (10-37); BILIRUBIN,TOTAL 1.2 MG/DL (0.1-1.0); BLOOD UREA NITROGEN 19 MG/DL (7-18); BUN/CREATININE RATIO 20.4 (6.6-38.0); CALCIUM 7.3 MG/DL (8.5-10.1); CHLORIDE 104 MMOL/L (99-107); CREATININE 0.93 MG/DL (0.40-0.90); GLUCOSE 122 MG/DL (70-104); MAGNESIUM 2.4 MG/DL (1.5-2.4); PHOSPHORUS 4.1 MG/DL (2.3-4.5); POTASSIUM 4.4 MMOL/L (3.5-5.1); SODIUM 136 MMOL/L (135-145); TOTAL CARBON DIOXIDE 24.7 MMOL/L (24-32); TOTAL PROTEIN 4.5 G/DL (6.4-8.2); TRIGLYCERIDES 42 MG/DL (20-135); eGFR 61 ML/MIN
[2022-09-20] MEDS: baclofen 10mg tablet PO SCH ×7 (04:00→23:56)
[2022-09-20] MEDS: morphine 2 MG/ML inj. syringe IV PRN ×3 (05:19→12:18)
--- NOTE | 2022-09-20 06:18 | NUR ---
report given to rec rn plan of care reviewed
[2022-09-20] MEDS: magnesium 2GM in 50ml NS 50 ML IV PRN (06:49)
--- NOTE | 2022-09-20 07:02 | NUR ---
Patient in room [facility] 2013. I have received report from Mallika West RN and had the opportunity to ask questions and assume patient care. Addendum: 09/20/22 at 0703 by Crystal Trotter RN Amended: Links added.
[2022-09-20] MEDS: K and/or MAG REPLACEMENT MC SCH ×2 (07:03→20:00)
[2022-09-20] MEDS: nicotine 21mg patch - 24 hr TD SCH (07:21)
[2022-09-20] MEDS: mupirocin 2% nasal ointment 1gm UD NS SCH ×2 (07:22→20:09)
[2022-09-20 07:46] LABS: BASOPHILS % (AUTO) 0 % (0-1); EOSINOPHILS % (AUTO) 0 % (0-6); HEMATOCRIT 25.7 % (35.0-45.0); HEMOGLOBIN 8.7 g/dl (12.0-16.0); LYMPHOCYTES # (AUTO) 0.9 X10'3 (1.1-4.8); LYMPHOCYTES % (AUTO) 7.9 % (21-51); MEAN CORPUSCULAR HGB CONC 33.9 g/dL (33.0-36.5); MEAN CORPUSCULAR VOLUME 94.3 FL (78-98); MEAN PLATELET VOLUME 7.8 FL (7.4-10.4); MONOCYTES # (AUTO) 1.4 X10'3 (0-0.9); MONOCYTES % (AUTO) 12.1 % (2-12); NEUTROPHILS # (AUTO) 9.5 X10'3 (1.8-7.7); PLATELET COUNT 150 X10'3 (140-440); RED BLOOD COUNT 2.72 X10'6 (4.20-5.60); RED CELL DISTRIBUTION WIDTH 15.8 % (11.5-14.5); WHITE BLOOD COUNT 11.8 X10'3 (4.5-11.0)
[2022-09-20] MEDS: budesonide 0.5mg/2ml UD nebule IH SCH ×2 (07:48→19:29)
[2022-09-20] MEDS: atorvastatin 20mg tablet PO SCH (07:56)
[2022-09-20] MEDS: metoprolol tartrate 12.5mg (1/2 tablet) PO SCH ×2 (07:56→20:00)
[2022-09-20] MEDS: aspirin 81mg tab.chew PO SCH (07:56)
[2022-09-20] MEDS: carVEDilol 3.125mg tablet PO SCH ×2 (07:56→20:00)
[2022-09-20] MEDS: sennosides/docusate sodium tablet PO SCH ×2 (07:56→20:07)
[2022-09-20] MEDS: multivitamins, therapeutics tablet PO SCH ×4 (07:56→20:07)
[2022-09-20 08:18] LABS: ALANINE AMINOTRANSFERASE 29 U/L (12-78); ALBUMIN 2.7 G/DL (3.4-5.0); ALBUMIN/GLOBULIN RATIO 1.6 (1.1-1.5); ALKALINE PHOSPHATASE 35 IU/L (46-116); ANION GAP 9 (8-16); ASPARTATE AMINO TRANSFERASE 70 U/L (10-37); BILIRUBIN,TOTAL 1.3 MG/DL (0.1-1.0); BLOOD UREA NITROGEN 19 MG/DL (7-18); BUN/CREATININE RATIO 21.8 (6.6-38.0); CHLORIDE 103 MMOL/L (99-107); CREATININE 0.87 MG/DL (0.40-0.90); GLUCOSE 122 MG/DL (70-104); MAGNESIUM 2.5 MG/DL (1.5-2.4); POTASSIUM 4.6 MMOL/L (3.5-5.1); SODIUM 135 MMOL/L (135-145); TOTAL CARBON DIOXIDE 23.1 MMOL/L (24-32); TOTAL PROTEIN 4.4 G/DL (6.4-8.2); eGFR 65 ML/MIN
[2022-09-20 08:22] LABS: ABG BASE EXCESS -3.1 mmol/L (-2.0-2.0); ABG HCO3 20.7 mmol/L (22.0-26.0); ABG OXYGEN SATURATION 91.1 % (94-97); ABG PCO2 (T) 33.1 mmHg (32.0-45.0); ABG PO2 (T) 63.1 mmHg (75.0-100.0); ALLEN'S TEST POSITIVE; FCOHb 0.3 % (0.0-3.9); FO2Hb 90.8 % (94-97); PATIENT TEMPERATURE 37.6; PEEP 5 cm H2O; RESPIRATORY RATE 8 b/min; TIDAL VOLUME 450 mL; TOTAL HEMOGLOBIN 9.5 G/dl (12.0-16.0)
--- NOTE | 2022-09-20 08:38 | NUR ---
Shirley Shanks here to see pt. at approx. 0805. Updated on plan of care. ABG obtained and resulted. Pt. placed on spontaneous mode on ventilator.
[2022-09-20] MEDS: normal saline 1000ml 1,000 ML IV SCH (09:55)
--- NOTE | 2022-09-20 10:16 | NUR ---
During [facility] shift, the [facility] RN changed the set rate on the vent from 16BPM to 10BPM at 0232 and then from 10BPM to 8BPM at 0410. There is no MD order for these changes and there is no rationale as to why these changes were made by the RN. There was also no follow up ABG obtained to check the patients status after the changes were made. Per report from the [facility] shift RT, the [facility] hemodialysis charge nurse stated that that no ABG was needed because it would be done prior to extubation on day shift so no morning ABG was obtained either. Upon my first assessment, the patient was awake and alert, with a RR in the high 20's to 30's. SpO2 was 97% on 50%. ABG was obtained per standard of care and O2 was dropped to 40%. Addendum: 09/20/22 at 1034 by Arina RT Amended: Links added.
[2022-09-20 10:20] LABS: APTT 28 SECONDS (22-32)
--- NOTE | 2022-09-20 11:01 | NUR ---
Nutrition consult: Pt POD #1 s/p CABG x4. Pt remains intubated at this time though would benefit from post-CABG nutrition therapy education once appropriate following extubation. Noted lipid panel is WNL. Will continue to follow. Addendum: 09/20/22 at [address] Amended: Links added.
[2022-09-20] MEDS ORDERED: mineral oil/petrolatum ophthal oint EACHEYE SCH (14:00)
[2022-09-20] MEDS: HYDROcodone/acetaminophen 10/325mg tab PO PRN ×3 (14:06→23:15)
--- NOTE | 2022-09-20 14:11 | NUR ---
Pt. refused SCD's.
--- NOTE | 2022-09-20 14:41 | NUR ---
PT here working with patient.
[2022-09-20] MEDS: NORepinephrine 8mg/ 250ml NS 250 ML IV SCH (15:26)
--- NOTE | 2022-09-20 18:21 | NUR ---
Patient in room CICU 2013. I have received report from CHARLEY Rojas and had the opportunity to ask questions and assume patient care.
[2022-09-20] MEDS: doxepin 25mg capsule PO SCH (20:05)
[2022-09-20] MEDS: gabapentin 100mg capsule PO SCH (21:00)
[2022-09-21] VITALS (23 sets, daily range): BP systolic 77–119; BP diastolic 44–60
[2022-09-21] MEDS: gabapentin 100mg capsule PO SCH ×2 (00:07→20:33)
[2022-09-21] MEDS: normal saline 1000ml 1,000 ML IV SCH ×2 (02:35→19:15)
[2022-09-21 02:50] LABS: ALBUMIN 2.6 G/DL (3.4-5.0); ANION GAP 5 (8-16); BLOOD UREA NITROGEN 25 MG/DL (7-18); BUN/CREATININE RATIO 27.5 (6.6-38.0); CALCIUM 7.5 MG/DL (8.5-10.1); CHLORIDE 102 MMOL/L (99-107); CREATININE 0.91 MG/DL (0.40-0.90); GLUCOSE 118 MG/DL (70-104); MAGNESIUM 2.5 MG/DL (1.5-2.4); PHOSPHORUS 4.1 MG/DL (2.3-4.5); POTASSIUM 4.8 MMOL/L (3.5-5.1); SODIUM 133 MMOL/L (135-145); TOTAL CARBON DIOXIDE 25.8 MMOL/L (24-32); eGFR 62 ML/MIN
[2022-09-21] MEDS: ipratropium/albuterol 3ml nebule NEB SCH ×6 (03:00→22:58)
--- NOTE | 2022-09-21 03:00 | NUR ---
Pt states she 'can't possibly go to the floor today' because her 'pain is just too bad'. When questioned how the [place] she is receiving helps with the pain pt states, 'I don't know, I've just been going to sleep'. Addendum: 09/21/22 at 0321 by Gina Gutierrez RN Amended: Links added.
[2022-09-21] MEDS: VANCOMYCIN 1,500MG in NS 300ml IVPB IV SCH (03:02)
[2022-09-21] MEDS: HYDROcodone/acetaminophen 10/325mg tab PO PRN ×5 (03:02→20:59)
[2022-09-21 03:29] LABS: BASOPHILS % (AUTO) 0.1 % (0-1); EOSINOPHILS % (AUTO) 0.1 % (0-6); HEMATOCRIT 22.9 % (35.0-45.0); HEMOGLOBIN 7.6 g/dl (12.0-16.0); LYMPHOCYTES # (AUTO) 1.3 X10'3 (1.1-4.8); LYMPHOCYTES % (AUTO) 12.9 % (21-51); MEAN CORPUSCULAR HGB CONC 33.4 g/dL (33.0-36.5); MEAN CORPUSCULAR VOLUME 95.7 FL (78-98); MEAN PLATELET VOLUME 8.4 FL (7.4-10.4); MONOCYTES # (AUTO) 1.7 X10'3 (0-0.9); NEUTROPHILS # (AUTO) 6.9 X10'3 (1.8-7.7); NEUTROPHILS % (AUTO) 69.9 % (42-75); PLATELET COUNT 120 X10'3 (140-440); RED BLOOD COUNT 2.39 X10'6 (4.20-5.60); RED CELL DISTRIBUTION WIDTH 15.6 % (11.5-14.5); WHITE BLOOD COUNT 9.9 X10'3 (4.5-11.0)
[2022-09-21] MEDS: baclofen 10mg tablet PO SCH ×5 (03:52→20:33)
[2022-09-21] MEDS: morphine 2 MG/ML inj. syringe IV PRN ×2 (04:29→12:24)
[2022-09-21 05:09] LABS: SMUDGE CELLS 1+; TOTAL CELLS COUNTED 100
[2022-09-21 05:10] LABS: PLATELET ESTIMATE DECREASED; POLYCHROMASIA FEW
--- NOTE | 2022-09-21 05:51 | NUR ---
Dr David notified regarding H&H of .03/23.9. No new orders received.
--- NOTE | 2022-09-21 06:15 | NUR ---
Problems reprioritized. Patient report given, questions answered & plan of care reviewed with Bharath RN.
[2022-09-21] MEDS: K and/or MAG REPLACEMENT MC SCH ×2 (06:36→20:00)
[2022-09-21] MEDS: budesonide 0.5mg/2ml UD nebule IH SCH ×2 (07:26→19:57)
[2022-09-21] MEDS: pantoprazole 40mg Tablet.DR PO SCH (07:27)
[2022-09-21] MEDS: sennosides/docusate sodium tablet PO SCH ×2 (07:27→20:33)
[2022-09-21] MEDS: multivitamins, therapeutics tablet PO SCH ×4 (07:28→20:33)
[2022-09-21] MEDS: atorvastatin 20mg tablet PO SCH (07:29)
[2022-09-21] MEDS: carVEDilol 3.125mg tablet PO SCH ×2 (07:29→20:33)
[2022-09-21] MEDS: metoprolol tartrate 12.5mg (1/2 tablet) PO SCH ×2 (07:29→20:33)
[2022-09-21] MEDS: nicotine 21mg patch - 24 hr TD SCH (07:31)
[2022-09-21] MEDS: mupirocin 2% nasal ointment 1gm UD NS SCH (07:31)
[2022-09-21] MEDS: propofol 1000mg/100ml bottle 100 ML IV SCH (10:20)
[2022-09-21] MEDS: aspirin 81mg tab.chew PO SCH (11:22)
[2022-09-21] MEDS: BUPRENORPHINE (Butrans) 10MCG PATCH.TDWK (7-day patch) TP SCH (11:30)
[2022-09-21] MEDS: sodium chloride 0.45% 1,000 ML IV SCH (12:05)
[2022-09-21] MEDS: nitroGLYCERIN-Tridil 50MG/D5W 250 ML IV SCH (12:05)
--- NOTE | 2022-09-21 18:24 | NUR ---
Neuro:AAOx4 Cardiac:ST, Hypotensive. On levo gtt. Currently @ 0.08 Resp:4L NC 6L needed when sitting in chair GI/: Ate some lunch today. Low appetite d/t discomfort Skin:Chest tubes x3 remain in place. Dressing CDI Pain: Needed 1x PRN porphine for management
--- NOTE | 2022-09-21 18:34 | NUR ---
Patient in room CICU 2013. I have received report from Bharath WHITEHEAD and had the opportunity to ask questions and assume patient care along with Gina WHITEHEAD.
--- NOTE | 2022-09-21 18:34 | NUR ---
Patient in room CICU 2013. I have received report from CHARLEY Sinha and had the opportunity to ask questions and assume patient care.
[2022-09-21] MEDS: doxepin 25mg capsule PO SCH (20:33)
[2022-09-22] VITALS (24 sets, daily range): BP systolic 78–129; BP diastolic 42–62
[2022-09-22] MEDS: baclofen 10mg tablet PO SCH ×7 (00:39→23:31)
[2022-09-22] MEDS: HYDROcodone/acetaminophen 10/325mg tab PO PRN ×4 (01:16→21:38)
[2022-09-22] MEDS ORDERED: VANCOMYCIN LEVEL IV ONE (02:30)
[2022-09-22 02:57] LABS: BASOPHILS % (AUTO) 0.3 % (0-1); EOSINOPHILS # (AUTO) 0.1 X10'3 (0-0.9); EOSINOPHILS % (AUTO) 1.1 % (0-6); HEMATOCRIT 23.6 % (35.0-45.0); HEMOGLOBIN 7.9 g/dl (12.0-16.0); LYMPHOCYTES # (AUTO) 1.9 X10'3 (1.1-4.8); LYMPHOCYTES % (AUTO) 15.7 % (21-51); MEAN CORPUSCULAR HEMOGLOBIN 32.1 PG (27.0-31.0); MEAN CORPUSCULAR HGB CONC 33.4 g/dL (33.0-36.5); MEAN CORPUSCULAR VOLUME 96.1 FL (78-98); MEAN PLATELET VOLUME 8.1 FL (7.4-10.4); MONOCYTES # (AUTO) 1.5 X10'3 (0-0.9); MONOCYTES % (AUTO) 12.1 % (2-12); NEUTROPHILS # (AUTO) 8.7 X10'3 (1.8-7.7); NEUTROPHILS % (AUTO) 70.8 % (42-75); PLATELET COUNT 168 X10'3 (140-440); RED BLOOD COUNT 2.45 X10'6 (4.20-5.60); RED CELL DISTRIBUTION WIDTH 15.8 % (11.5-14.5); WHITE BLOOD COUNT 12.3 X10'3 (4.5-11.0)
[2022-09-22 03:10] LABS: ANION GAP 8 (8-16); BLOOD UREA NITROGEN 28 MG/DL (7-18); BUN/CREATININE RATIO 37.8 (6.6-38.0); CALCIUM 7.1 MG/DL (8.5-10.1); CHLORIDE 101 MMOL/L (99-107); CREATININE 0.74 MG/DL (0.40-0.90); GLUCOSE 98 MG/DL (70-104); MAGNESIUM 1.8 MG/DL (1.5-2.4); PHOSPHORUS 2.9 MG/DL (2.3-4.5); POTASSIUM 4.6 MMOL/L (3.5-5.1); SODIUM 132 MMOL/L (135-145); TOTAL CARBON DIOXIDE 23.1 MMOL/L (24-32); VANCOMYCIN,TROUGH 13.3 UG/ML (6.0-14.0); eGFR 79 ML/MIN
[2022-09-22] MEDS: ipratropium/albuterol 3ml nebule NEB SCH ×2 (03:21→07:00)
[2022-09-22] MEDS: VANCOMYCIN 1,500MG in NS 300ml IVPB IV SCH (03:42)
--- NOTE | 2022-09-22 06:02 | NUR ---
Pt had soft BPs throughout the night, awake continuously asking for her pain meds. Levo had been previously running but was discontinued during day shift and not reordered. Otherwise asymptomatic, good urine output. SpO2 low on NC switched to [place] for higher Liter flow do to flat laying position for painful back mouth breathing during sleeping. When pt awake and moving BP and SpO2 within normal limits. Pt encouraged throughout the night to use IS to open lungs since she prefers lying flat in bed.
--- NOTE | 2022-09-22 06:15 | NUR ---
Problems reprioritized. Patient report given, questions answered & plan of care reviewed with Tra RN.
[2022-09-22] MEDS ORDERED: magnesium 2GM in 50ml NS 50 ML IV PRN (07:35)
[2022-09-22] MEDS ORDERED: potassium Cl 40MEQ/270ML bag 250 ML IV PRN (07:35)
[2022-09-22] MEDS ORDERED: magnesium 4gm in 100ml NS 100 ML IV PRN (07:35)
[2022-09-22] MEDS ORDERED: potassium Cl 40MEQ/1/2NS 520ml 520 ML IV PRN (07:35)
[2022-09-22] MEDS ORDERED: potassium Cl 20mEq/100mL bag 100 ML IV PRN (07:35)
[2022-09-22] MEDS ORDERED: potassium CL 10mEq/100ml bag 100 ML IV PRN (07:35)
[2022-09-22] MEDS ORDERED: potassium Cl 20 mEq SR tablet PO PRN ×2 (07:35)
[2022-09-22] MEDS: multivitamins, therapeutics tablet PO SCH ×4 (07:47→19:59)
[2022-09-22] MEDS: ketorolac tromethamine 15mg/ml inj. IV SCH ×3 (07:47→19:18)
[2022-09-22] MEDS: carVEDilol 3.125mg tablet PO SCH ×2 (07:48→19:19)
[2022-09-22] MEDS: aspirin 81mg tab.chew PO SCH (07:48)
[2022-09-22] MEDS: metoprolol tartrate 12.5mg (1/2 tablet) PO SCH (07:48)
[2022-09-22] MEDS: atorvastatin 20mg tablet PO SCH (07:48)
[2022-09-22] MEDS: pantoprazole 40mg Tablet.DR PO SCH (07:48)
[2022-09-22] MEDS: sennosides/docusate sodium tablet PO SCH ×2 (07:49→19:52)
[2022-09-22] MEDS: magnesium Cl slow-release 64mg tablet PO SCH ×2 (07:51→19:52)
[2022-09-22] MEDS: budesonide 0.5mg/2ml UD nebule IH SCH ×2 (07:58→20:35)
[2022-09-22] MEDS ORDERED: furosemide 20 MG/2 ML vial IV ONE (09:35)
--- NOTE | 2022-09-22 11:12 | NUR ---
Nutrition consult: Pt seen at bedside provided with written and verbal post CABG nutrition therapy education. Noted pt not eating well, documented with average 25% PO intake since lunch 09/21. Pt states it's difficult to eat d/t pain, not having her dentures (though reports it is difficult to chew even when she does have her dentures), and from her dominant (right) hand being in a cast. Pt requests soft to chew chopped food, d/w dietary. Pt agrees to Ensure TID to optimize nutrient intake, to be sent pending physician approval in EMR. Pt denies food allergies. LBM 09/18, pt with c/o constipation. Pt receiving routine bowel care and RN reports admin of PRN MoM this morning. Pt requests prune juice with next meal to further assist with bowel regularity, d/w dietary. Pt provided with RD contact information and encouraged to reach out if needed. Will remain available. Recommendations: 1. Continue NCS diet; soft to chew chop all per pt request 2. Chocolate Ensure Plus HP TID, pending physician approval in EMR 3. Routine bowel care; utilize PRN bowel care 4. Weekly scaled weights Addendum: 09/22/22 at [address] Amended: Links added.
[2022-09-22] MEDS: LACTOSE-REDUCED FOOD 237ML LIQUID PO SCH ×2 (13:00→17:59)
[2022-09-22] MEDS: heparin, porcine 5000 units/ml vial SQ SCH ×2 (15:36→23:59)
[2022-09-22] MEDS ORDERED: vancomycin/NS 1 GM ADD-VANTAGE 250 ML IV SCH (16:00)
--- NOTE | 2022-09-22 17:51 | NUR ---
Neuro:AAOx4. Had panic attack today x2. PRN ordered. (see MAR) Cardiac:NSR. Remained hypotensive t/o shift. given 20mg lasix x1 with 215ml output. Resp: continued to need HFNC (4L-8L). Needed additional O2 when ambulating with PT (see note) GI/: Ate 50% of breakfast and lunch. Added Ensure with good results. Skin:Low OP on chest tubes. Site CDI. IJ removed with no complications. Pain:Given Toradol with negative results. Pt reported feeling "dizzy and not right" after. Refused second dose.
--- NOTE | 2022-09-22 18:30 | NUR ---
Report received from CHARLEY Sinha. Assumed care of patient at this time. Reported low BP & UO throughout day. Will continue to monitor.
[2022-09-22] MEDS: gabapentin 100mg capsule PO SCH (19:59)
[2022-09-22] MEDS: doxepin 25mg capsule PO SCH (19:59)
[2022-09-23] VITALS (28 sets, daily range): BP systolic 76–112; BP diastolic 42–60
[2022-09-23] MEDS ORDERED: albumin (Human) 5% 250ml 250 ML IV ONE (01:00)
--- NOTE | 2022-09-23 01:00 | NUR ---
Dr. David called & notified of pt BP 70s/40s, CT between 50-100cc/hr of serous fluid, UO 10-25cc/hr. Order for albumin at this time. See emar for administration.
[2022-09-23] MEDS: ketorolac tromethamine 15mg/ml inj. IV SCH (01:28)
[2022-09-23] MEDS: baclofen 10mg tablet PO SCH ×6 (03:50→23:55)
[2022-09-23 05:32] LABS: BASOPHILS # (AUTO) 0.2 X10'3 (0-0.2); BASOPHILS % (AUTO) 1.4 % (0-1); EOSINOPHILS # (AUTO) 0.3 X10'3 (0-0.9); EOSINOPHILS % (AUTO) 2.4 % (0-6); HEMOGLOBIN 7.3 g/dl (12.0-16.0); LYMPHOCYTES # (AUTO) 2.5 X10'3 (1.1-4.8); MEAN CORPUSCULAR HEMOGLOBIN 32.4 PG (27.0-31.0); MEAN CORPUSCULAR HGB CONC 33.6 g/dL (33.0-36.5); MEAN CORPUSCULAR VOLUME 96.5 FL (78-98); MEAN PLATELET VOLUME 8.6 FL (7.4-10.4); MONOCYTES # (AUTO) 1.5 X10'3 (0-0.9); NEUTROPHILS # (AUTO) 7.1 X10'3 (1.8-7.7); NEUTROPHILS % (AUTO) 61.2 % (42-75); PLATELET COUNT 196 X10'3 (140-440); RED BLOOD COUNT 2.24 X10'6 (4.20-5.60); RED CELL DISTRIBUTION WIDTH 15.6 % (11.5-14.5); WHITE BLOOD COUNT 11.6 X10'3 (4.5-11.0)
[2022-09-23 05:40] LABS: HEMATOCRIT 21.6 % (35.0-45.0)
[2022-09-23 05:51] LABS: ALBUMIN 2.2 G/DL (3.4-5.0); ANION GAP 6 (8-16); BLOOD UREA NITROGEN 42 MG/DL (7-18); BUN/CREATININE RATIO 50.6 (6.6-38.0); CALCIUM 7.6 MG/DL (8.5-10.1); CHLORIDE 101 MMOL/L (99-107); CREATININE 0.83 MG/DL (0.40-0.90); GLUCOSE 104 MG/DL (70-104); SODIUM 132 MMOL/L (135-145); TOTAL CARBON DIOXIDE 25.3 MMOL/L (24-32); eGFR 69 ML/MIN
[2022-09-23 06:08] LABS: POTASSIUM 4.3 MMOL/L (3.5-5.1)
[2022-09-23] MEDS: sennosides/docusate sodium tablet PO SCH ×2 (07:24→20:48)
[2022-09-23] MEDS: magnesium Cl slow-release 64mg tablet PO SCH ×2 (07:25→20:48)
[2022-09-23] MEDS: atorvastatin 20mg tablet PO SCH (07:25)
[2022-09-23] MEDS: heparin, porcine 5000 units/ml vial SQ SCH ×3 (07:25→23:55)
[2022-09-23] MEDS: multivitamins, therapeutics tablet PO SCH ×4 (07:25→20:48)
[2022-09-23] MEDS: pantoprazole 40mg Tablet.DR PO SCH (07:25)
[2022-09-23] MEDS: carVEDilol 3.125mg tablet PO SCH ×2 (07:26→19:17)
[2022-09-23] MEDS: budesonide 0.5mg/2ml UD nebule IH SCH ×2 (08:01→21:06)
[2022-09-23] MEDS: LACTOSE-REDUCED FOOD 237ML LIQUID PO SCH ×3 (08:30→17:31)
[2022-09-23] MEDS: HYDROcodone/acetaminophen 10/325mg tab PO PRN ×3 (08:31→21:55)
[2022-09-23] MEDS: aspirin 81mg tab.chew PO SCH (08:31)
[2022-09-23] MEDS: OXAZEpam 10mg capsule PO PRN (11:12)
[2022-09-23] MEDS: furosemide 10 MG/1 ML 10ml inj IV ONE ×3 (15:28→15:41)
[2022-09-23] MEDS ORDERED: furosemide 10 MG/1 ML 10ml inj IV ONE (17:50)
[2022-09-23] MEDS: gabapentin 100mg capsule PO SCH (20:49)
[2022-09-23] MEDS: doxepin 25mg capsule PO SCH (20:49)
[2022-09-24] VITALS (12 sets, daily range): BP systolic 98–119; BP diastolic 47–73
[2022-09-24] MEDS ORDERED: VANCOMYCIN LEVEL IV ONE (03:30)
[2022-09-24] MEDS: baclofen 10mg tablet PO SCH ×6 (04:00→19:29)
[2022-09-24 06:27] LABS: BASOPHILS # (AUTO) 0.1 X10'3 (0-0.2); BASOPHILS % (AUTO) 0.4 % (0-1); EOSINOPHILS # (AUTO) 0.4 X10'3 (0-0.9); EOSINOPHILS % (AUTO) 2.5 % (0-6); HEMATOCRIT 29.4 % (35.0-45.0); HEMOGLOBIN 9.9 g/dl (12.0-16.0); LYMPHOCYTES # (AUTO) 2.9 X10'3 (1.1-4.8); LYMPHOCYTES % (AUTO) 17.6 % (21-51); MEAN CORPUSCULAR HEMOGLOBIN 32.2 PG (27.0-31.0); MEAN CORPUSCULAR HGB CONC 33.8 g/dL (33.0-36.5); MEAN CORPUSCULAR VOLUME 95.3 FL (78-98); MEAN PLATELET VOLUME 8.1 FL (7.4-10.4); MONOCYTES # (AUTO) 2.1 X10'3 (0-0.9); MONOCYTES % (AUTO) 12.6 % (2-12); NEUTROPHILS # (AUTO) 10.9 X10'3 (1.8-7.7); NEUTROPHILS % (AUTO) 66.9 % (42-75); PLATELET COUNT 260 X10'3 (140-440); RED BLOOD COUNT 3.08 X10'6 (4.20-5.60); WHITE BLOOD COUNT 16.3 X10'3 (4.5-11.0)
[2022-09-24 06:34] LABS: ALBUMIN 2.3 G/DL (3.4-5.0); ANION GAP 11 (8-16); BLOOD UREA NITROGEN 35 MG/DL (7-18); BUN/CREATININE RATIO 42.7 (6.6-38.0); CALCIUM 7.7 MG/DL (8.5-10.1); CHLORIDE 98 MMOL/L (99-107); CREATININE 0.82 MG/DL (0.40-0.90); GLUCOSE 105 MG/DL (70-104); POTASSIUM 4.1 MMOL/L (3.5-5.1); SODIUM 132 MMOL/L (135-145); TOTAL CARBON DIOXIDE 23.4 MMOL/L (24-32); eGFR 70 ML/MIN
[2022-09-24 06:50] LABS: ANISOCYTOSIS 1+; PLATELET ESTIMATE NORMAL; TOTAL CELLS COUNTED 100
[2022-09-24] MEDS: multivitamins, therapeutics tablet PO SCH ×4 (07:23→20:12)
[2022-09-24] MEDS: HYDROcodone/acetaminophen 10/325mg tab PO PRN ×3 (07:23→19:47)
[2022-09-24 07:24] LABS: MAGNESIUM 1.8 MG/DL (1.5-2.4)
[2022-09-24] MEDS: sennosides/docusate sodium tablet PO SCH ×2 (07:24→19:29)
[2022-09-24] MEDS: atorvastatin 20mg tablet PO SCH (07:24)
[2022-09-24] MEDS: pantoprazole 40mg Tablet.DR PO SCH (07:24)
[2022-09-24] MEDS: heparin, porcine 5000 units/ml vial SQ SCH ×2 (07:24→16:53)
[2022-09-24] MEDS: aspirin 81mg tab.chew PO SCH (07:24)
[2022-09-24] MEDS: magnesium Cl slow-release 64mg tablet PO SCH ×2 (07:25→19:29)
[2022-09-24] MEDS: carVEDilol 3.125mg tablet PO SCH ×2 (08:00→19:29)
[2022-09-24] MEDS ORDERED: magnesium 4gm in 100ml NS 100 ML IV ONE (08:20)
[2022-09-24] MEDS: LACTOSE-REDUCED FOOD 237ML LIQUID PO SCH ×3 (08:28→18:00)
[2022-09-24] MEDS: budesonide 0.5mg/2ml UD nebule IH SCH ×2 (08:39→19:52)
[2022-09-24] MEDS: ipratropium/albuterol 3ml nebule NEB PRN ×3 (08:39→19:51)
[2022-09-24] MEDS: OXAZEpam 10mg capsule PO PRN (08:56)
--- NOTE | 2022-09-24 09:33 | NUR ---
Patient transferred upstairs with all belongings including her glasses, cell phone, and emergency veterinarian. Report given to Fiordaliza WHITEHEAD with all questions answered.
--- NOTE | 2022-09-24 10:03 | NUR ---
REPORT RECEIVED FROM MADELYN MECHANIC GENERAL OPERATIONAL TEST. PT RECEIVED IN ROOM 3024G. ALERT/ORIENTED, NC AT 5L, CHEST TUBES INTACT, PT TRANSFERS WITH 1 ASSIST FROM BED TO BEDSIDE COMMODE TO CHAIR. NO SIGNS OF DISTRESS AT THIS TIME. PT IN THE ROOM TO WORK WITH PT.
[2022-09-24] MEDS: doxepin 25mg capsule PO SCH (20:12)
[2022-09-24] MEDS: gabapentin 100mg capsule PO SCH (20:12)
[2022-09-25] MEDS: HYDROcodone/acetaminophen 10/325mg tab PO PRN ×2 (00:34→05:45)
[2022-09-25] MEDS: baclofen 10mg tablet PO SCH ×6 (00:34→20:12)
[2022-09-25] MEDS: heparin, porcine 5000 units/ml vial SQ SCH ×3 (00:39→15:56)
[2022-09-25 02:36] VITALS: BP 93/62
[2022-09-25 07:00] VITALS: BP 90/53
[2022-09-25] MEDS: OXAZEpam 10mg capsule PO PRN (07:08)
[2022-09-25] MEDS: pantoprazole 40mg Tablet.DR PO SCH (07:08)
[2022-09-25] MEDS: carVEDilol 3.125mg tablet PO SCH ×2 (08:00→20:00)
[2022-09-25] MEDS: budesonide 0.5mg/2ml UD nebule IH SCH ×2 (08:15→21:00)
[2022-09-25] MEDS: ipratropium/albuterol 3ml nebule NEB PRN (08:15)
[2022-09-25 08:37] LABS: ALBUMIN 2.1 G/DL (3.4-5.0); ANION GAP 9 (8-16); BLOOD UREA NITROGEN 33 MG/DL (7-18); BUN/CREATININE RATIO 42.3 (6.6-38.0); CALCIUM 7.9 MG/DL (8.5-10.1); CHLORIDE 98 MMOL/L (99-107); CREATININE 0.78 MG/DL (0.40-0.90); GLUCOSE 111 MG/DL (70-104); POTASSIUM 4.5 MMOL/L (3.5-5.1); SODIUM 131 MMOL/L (135-145); TOTAL CARBON DIOXIDE 24.4 MMOL/L (24-32); eGFR 74 ML/MIN
[2022-09-25] MEDS ORDERED: lactulose 20gm/30ml cup PO ONE (08:45)
[2022-09-25] MEDS: LACTOSE-REDUCED FOOD 237ML LIQUID PO SCH ×3 (08:46→18:03)
[2022-09-25] MEDS: magnesium Cl slow-release 64mg tablet PO SCH ×2 (08:46→20:11)
[2022-09-25] MEDS: atorvastatin 20mg tablet PO SCH (08:47)
[2022-09-25] MEDS: aspirin 81mg tab.chew PO SCH (08:47)
[2022-09-25] MEDS: multivitamins, therapeutics tablet PO SCH ×4 (08:47→20:11)
[2022-09-25] MEDS: sennosides/docusate sodium tablet PO SCH ×2 (08:48→20:00)
[2022-09-25 10:30] LABS: BASOPHILS # (AUTO) 0.1 X10'3 (0-0.2); BASOPHILS % (AUTO) 0.4 % (0-1); EOSINOPHILS # (AUTO) 0.2 X10'3 (0-0.9); EOSINOPHILS % (AUTO) 1.1 % (0-6); HEMATOCRIT 30.8 % (35.0-45.0); HEMOGLOBIN 10.2 g/dl (12.0-16.0); LYMPHOCYTES # (AUTO) 1.8 X10'3 (1.1-4.8); LYMPHOCYTES % (AUTO) 8.6 % (21-51); MEAN CORPUSCULAR HEMOGLOBIN 31.9 PG (27.0-31.0); MEAN CORPUSCULAR HGB CONC 33.2 g/dL (33.0-36.5); MEAN CORPUSCULAR VOLUME 96.2 FL (78-98); MONOCYTES # (AUTO) 1.5 X10'3 (0-0.9); MONOCYTES % (AUTO) 7.2 % (2-12); NEUTROPHILS # (AUTO) 17.2 X10'3 (1.8-7.7); NEUTROPHILS % (AUTO) 82.7 % (42-75); PLATELET COUNT 323 X10'3 (140-440); RED CELL DISTRIBUTION WIDTH 16.5 % (11.5-14.5); WHITE BLOOD COUNT 20.8 X10'3 (4.5-11.0)
[2022-09-25] MEDS ORDERED: HYDROcodone/acetaminophen 10/325mg tab PO PRN (12:40)
[2022-09-25 13:00] VITALS: BP 137/98
--- NOTE | 2022-09-25 18:10 | NUR ---
report received from Fiordaliza WHITEHEAD
[2022-09-25 19:00] VITALS: BP 89/44
[2022-09-25] MEDS: gabapentin 100mg capsule PO SCH (20:11)
[2022-09-25] MEDS: doxepin 25mg capsule PO SCH (20:27)
[2022-09-25 22:00] VITALS: BP 123/88
[2022-09-26] VITALS (7 sets, daily range): BP systolic 63–119; BP diastolic 28–89
[2022-09-26] MEDS: heparin, porcine 5000 units/ml vial SQ SCH ×3 (02:40→16:19)
[2022-09-26] MEDS: acetaminophen 325mg tablet PO PRN (05:04)
[2022-09-26] MEDS: baclofen 10mg tablet PO SCH ×6 (05:31→20:13)
--- NOTE | 2022-09-26 05:45 | NUR ---
CT sx at 85 to 90 cm
[2022-09-26] MEDS: LACTOSE-REDUCED FOOD 237ML LIQUID PO SCH ×3 (08:00→18:00)
[2022-09-26] MEDS: magnesium Cl slow-release 64mg tablet PO SCH ×2 (08:00→20:12)
[2022-09-26 08:10] LABS: ALBUMIN 1.9 G/DL (3.4-5.0); ANION GAP 8 (8-16); BLOOD UREA NITROGEN 48 MG/DL (7-18); BUN/CREATININE RATIO 36.1 (6.6-38.0); CALCIUM 7.7 MG/DL (8.5-10.1); CHLORIDE 98 MMOL/L (99-107); CREATININE 1.33 MG/DL (0.40-0.90); GLUCOSE 91 MG/DL (70-104); SODIUM 131 MMOL/L (135-145); TOTAL CARBON DIOXIDE 24.8 MMOL/L (24-32); eGFR 40 ML/MIN
[2022-09-26] MEDS: atorvastatin 20mg tablet PO SCH (08:24)
[2022-09-26] MEDS: multivitamins, therapeutics tablet PO SCH ×4 (08:24→20:13)
[2022-09-26] MEDS: sennosides/docusate sodium tablet PO SCH ×2 (08:24→20:12)
[2022-09-26] MEDS: aspirin 81mg tab.chew PO SCH (08:24)
[2022-09-26] MEDS: carVEDilol 3.125mg tablet PO SCH ×2 (08:24→20:00)
[2022-09-26] MEDS: pantoprazole 40mg Tablet.DR PO SCH (08:25)
[2022-09-26] MEDS: budesonide 0.5mg/2ml UD nebule IH SCH ×2 (10:52→21:58)
[2022-09-26 11:16] LABS: BASOPHILS # (AUTO) 0.1 X10'3 (0-0.2); BASOPHILS % (AUTO) 0.5 % (0-1); EOSINOPHILS % (AUTO) 0.1 % (0-6); LYMPHOCYTES # (AUTO) 1.3 X10'3 (1.1-4.8); LYMPHOCYTES % (AUTO) 6.1 % (21-51); MEAN CORPUSCULAR HEMOGLOBIN 31.8 PG (27.0-31.0); MEAN CORPUSCULAR HGB CONC 32.3 g/dL (33.0-36.5); MEAN CORPUSCULAR VOLUME 98.3 FL (78-98); MEAN PLATELET VOLUME 8.3 FL (7.4-10.4); MONOCYTES # (AUTO) 1.4 X10'3 (0-0.9); MONOCYTES % (AUTO) 6.3 % (2-12); PLATELET COUNT 386 X10'3 (140-440); RED BLOOD COUNT 3.16 X10'6 (4.20-5.60); RED CELL DISTRIBUTION WIDTH 16.5 % (11.5-14.5); WHITE BLOOD COUNT 21.9 X10'3 (4.5-11.0)
--- NOTE | 2022-09-26 12:01 | NUR ---
Reassessment: Pt continues with mostly 25% PO intake of meals not meeting estimated nutrient needs. Pt now receiving an Ensure TID to optimize PO intake, no documentation of ONS acceptance at this time. Pt has RD contact information and has been encouraged to reach out. Per EMR LBM 09/18 though PA notes state pt reports a small BM today and she feels like she'll have another. Hopefully appetite and subsequently PO intake will improve with resolution of constipation. Pt receiving routine and PRN bowel care. Will continue to follow closely. Recommendations: 1. Continue NCS diet; soft to chew chop all per pt request; encourage PO intake 2. Chocolate Ensure Plus HP TID 3. Routine bowel care; utilize PRN bowel care 4. Weekly scaled weights Addendum: 09/26/22 at [address] Amended: Links added.
[2022-09-26] MEDS ORDERED: furosemide 20 MG/2 ML vial IV ONE (14:15)
[2022-09-26] MEDS: OXAZEpam 10mg capsule PO PRN (17:55)
--- NOTE | 2022-09-26 18:55 | NUR ---
[place] documentation: I have reviewed and agree with all interventions, assessments performed and documented by CHARLEY Syed.
[2022-09-26] MEDS: gabapentin 100mg capsule PO SCH (20:13)
[2022-09-26] MEDS: HYDROcodone/acetaminophen 5mg/325mg tablet PO PRN ×2 (20:14→20:42)
[2022-09-26] MEDS: doxepin 25mg capsule PO SCH (21:00)
[2022-09-26 22:29] LABS: ABG BASE EXCESS -1.9 mmol/L (-2.0-2.0); ABG HCO3 22.5 mmol/L (22.0-26.0); ABG OXYGEN SATURATION 81.9 % (94-97); ABG PCO2 (T) 35.8 mmHg (32.0-45.0); ABG PO2 (T) 48.4 mmHg (75.0-100.0); FCOHb 0.7 % (0.0-3.9); FLOW 15 L/min; FMetHb 0.2 % (0.0-1.5); FO2Hb 81.2 % (94-97); PATIENT TEMPERATURE 36.5; TOTAL HEMOGLOBIN 9.7 G/dl (12.0-16.0)
[2022-09-26] MEDS ORDERED: albumin (human) 25% 100 ML IV solution IV ONE (22:40)
[2022-09-26] MEDS ORDERED: naloxone 0.4 mg/ml inj IV ONE (22:40)
[2022-09-26] MEDS ORDERED: naloxone 0.4 mg/ml inj ONE (22:46)
[2022-09-27] VITALS (15 sets, daily range): BP systolic 12–135; BP diastolic 31–64
[2022-09-27 00:12] LABS: BASOPHILS # (AUTO) 0.1 X10'3 (0-0.2); BASOPHILS % (AUTO) 0.4 % (0-1); EOSINOPHILS % (AUTO) 0.1 % (0-6); HEMATOCRIT 26.2 % (35.0-45.0); HEMOGLOBIN 8.8 g/dl (12.0-16.0); LYMPHOCYTES # (AUTO) 1.2 X10'3 (1.1-4.8); MEAN CORPUSCULAR HGB CONC 33.6 g/dL (33.0-36.5); MEAN CORPUSCULAR VOLUME 95.2 FL (78-98); MEAN PLATELET VOLUME 7.8 FL (7.4-10.4); MONOCYTES % (AUTO) 5.8 % (2-12); NEUTROPHILS % (AUTO) 86.7 % (42-75); PLATELET COUNT 394 X10'3 (140-440); RED BLOOD COUNT 2.75 X10'6 (4.20-5.60); RED CELL DISTRIBUTION WIDTH 15.8 % (11.5-14.5); WHITE BLOOD COUNT 17.4 X10'3 (4.5-11.0)
[2022-09-27 00:27] LABS: PLATELET ESTIMATE NORMAL; POLYCHROMASIA FEW
[2022-09-27 00:28] LABS: BURR CELLS FEW
[2022-09-27 00:33] LABS: ALBUMIN 1.7 G/DL (3.4-5.0); ANION GAP 10 (8-16); BLOOD UREA NITROGEN 59 MG/DL (7-18); BUN/CREATININE RATIO 43.4 (6.6-38.0); CALCIUM 7.8 MG/DL (8.5-10.1); CHLORIDE 98 MMOL/L (99-107); CREATININE 1.36 MG/DL (0.40-0.90); GLUCOSE 105 MG/DL (70-104); POTASSIUM 4.8 MMOL/L (3.5-5.1); SODIUM 130 MMOL/L (135-145); TOTAL CARBON DIOXIDE 22.4 MMOL/L (24-32); eGFR 39 ML/MIN
[2022-09-27] MEDS: heparin, porcine 5000 units/ml vial SQ SCH ×4 (01:03→23:31)
[2022-09-27] MEDS: LACTOSE-REDUCED FOOD 237ML LIQUID PO SCH ×3 (08:00→19:00)
[2022-09-27] MEDS: carVEDilol 3.125mg tablet PO SCH ×2 (08:00→18:47)
--- NOTE | 2022-09-27 08:34 | NUR ---
Paged RT [id number]. Anna. SUSU ordered. Thx
[2022-09-27] MEDS: budesonide 0.5mg/2ml UD nebule IH SCH ×2 (08:47→20:30)
[2022-09-27] MEDS: ipratropium/albuterol 3ml nebule NEB PRN ×3 (08:47→15:33)
--- NOTE | 2022-09-27 09:15 | NUR ---
Unable to draw abg Rn notified, Pt poor condition requiring high fio2 anxious, refusing Pep therapy at this time. Addendum: 09/27/22 at 0917 by Aracely Friedman RT Amended: Links added.
--- NOTE | 2022-09-27 09:21 | NUR ---
Saturnino BYNUM notified unable to obtain abg at this time, concern for guarded condition notified. New orders for Ezpap given. CHARLEY Kraft notified Addendum: 09/27/22 at 0924 by Aracely Friedman RT Amended: Links added.
[2022-09-27] MEDS ORDERED: potassium Cl 40MEQ/270ML bag 250 ML IV PRN (09:30)
[2022-09-27] MEDS ORDERED: magnesium 2GM in 50ml NS 50 ML IV PRN (09:30)
[2022-09-27] MEDS ORDERED: magnesium 4gm in 100ml NS 100 ML IV PRN (09:30)
[2022-09-27] MEDS ORDERED: potassium Cl 20mEq/100mL bag 100 ML IV PRN (09:30)
[2022-09-27] MEDS ORDERED: potassium Cl 40MEQ/1/2NS 520ml 520 ML IV PRN (09:30)
[2022-09-27] MEDS ORDERED: potassium CL 10mEq/100ml bag 100 ML IV PRN (09:30)
[2022-09-27] MEDS ORDERED: potassium Cl 20 mEq SR tablet PO PRN (09:30)
[2022-09-27] MEDS: aspirin 81mg tab.chew PO SCH (09:43)
[2022-09-27] MEDS: pantoprazole 40mg Tablet.DR PO SCH (09:44)
[2022-09-27] MEDS: atorvastatin 20mg tablet PO SCH (09:44)
[2022-09-27] MEDS: multivitamins, therapeutics tablet PO SCH ×4 (09:44→20:54)
[2022-09-27] MEDS: sennosides/docusate sodium tablet PO SCH ×2 (09:44→20:05)
--- NOTE | 2022-09-27 12:05 | NUR ---
Report called to Marissa in CICU. All questions, comments, concerns answered at this time. Transferred patient down to CICU with RT and advised primary RN re: edematous labia and bladder scan results. All personal belongings as well as chart and meds if applicable were sent with patient. CT transferred with suction per MD order.
--- NOTE | 2022-09-27 12:10 | NUR ---
received from PCU. placed on monitor. sleepy but arouses easily and follows commands and states understanding. Discussed that she is back in critical care and needs to participate in getting better and follow instructions if she wishes to get better and leave the hospital
--- NOTE | 2022-09-27 12:10 | NUR ---
Returned call to Juliann (friend) [phone]. Advised of status and transfer to CICU.
--- NOTE | 2022-09-27 12:46 | NUR ---
up to chair for lunch, still very sleepy saying shes having panic attack and need a shot. Discussed that she is barely conscious and needs to be more alert and will not be getting a shot for anxiety.
[2022-09-27] MEDS ORDERED: albumin (Human) 5% 250ml 250 ML IV ONE (14:24)
--- NOTE | 2022-09-27 19:35 | NUR ---
Dr. David notified of BP 70s/40s at this time. Orders received for albumin. See emar for administration. Will continue to monitor
[2022-09-27] MEDS ORDERED: albumin (human) 25% 100ml IV 100 ML IV ONE (19:41)
[2022-09-27] MEDS: albumin (human) 25% 100 ML IV solution IV ONE ×2 (19:46→20:02)
[2022-09-27] MEDS: gabapentin 100mg capsule PO SCH ×2 (19:58→20:57)
[2022-09-27] MEDS: magnesium Cl slow-release 64mg tablet PO SCH (20:04)
[2022-09-27] MEDS: doxepin 25mg capsule PO SCH (20:05)
[2022-09-27] MEDS: acetaminophen 325mg tablet PO PRN (20:07)
[2022-09-27] MEDS: ondansetron/PF 4mg/2ml inj IV PRN (20:08)
[2022-09-27] MEDS ORDERED: albumin (human) 25% 100 ML IV solution IV ONE (21:35)
--- NOTE | 2022-09-27 21:35 | NUR ---
Dr. David called & notified of BP 74/33 (48). Orders received.
[2022-09-27] MEDS ORDERED: DOBUTamine-DoBUTrex 500mg/D5W 250 ML IV ONE (22:23)
[2022-09-27] MEDS ORDERED: DOBUTamine-DoBUTrex 500mg/D5W 250 ML IV SCH (22:25)
--- NOTE | 2022-09-27 22:30 | NUR ---
Dr. David notified of pts BP continuing to be 70s systolic despite x2 albumin infusions. Orders received for Dobutamine. See EMAR for administration. Will continue to monitor
--- NOTE | 2022-09-27 23:36 | NUR ---
Dr. David updated on pt BP varying 60s-70s systolic on 3mcg/kg/min of dobutamine. No new orders, will continue to monitor.
[2022-09-28] VITALS (24 sets, daily range): BP systolic 73–119; BP diastolic 34–63
[2022-09-28] MEDS: carVEDilol 3.125mg tablet PO SCH ×2 (07:19→18:24)
[2022-09-28] MEDS: pantoprazole 40mg Tablet.DR PO SCH ×2 (07:30→08:45)
[2022-09-28] MEDS: LACTOSE-REDUCED FOOD 237ML LIQUID PO SCH ×3 (08:00→18:00)
[2022-09-28] MEDS: budesonide 0.5mg/2ml UD nebule IH SCH ×2 (08:02→20:41)
[2022-09-28] MEDS: ipratropium/albuterol 3ml nebule NEB PRN ×3 (08:02→20:41)
[2022-09-28 08:31] LABS: BASOPHILS % (AUTO) 0.4 % (0-1); EOSINOPHILS # (AUTO) 0.1 X10'3 (0-0.9); HEMATOCRIT 24.7 % (35.0-45.0); HEMOGLOBIN 8.1 g/dl (12.0-16.0); LYMPHOCYTES % (AUTO) 10.9 % (21-51); MEAN CORPUSCULAR HEMOGLOBIN 31.8 PG (27.0-31.0); MEAN CORPUSCULAR HGB CONC 32.8 g/dL (33.0-36.5); MEAN CORPUSCULAR VOLUME 96.9 FL (78-98); MEAN PLATELET VOLUME 7.5 FL (7.4-10.4); MONOCYTES # (AUTO) 0.5 X10'3 (0-0.9); MONOCYTES % (AUTO) 5.5 % (2-12); NEUTROPHILS # (AUTO) 7.8 X10'3 (1.8-7.7); NEUTROPHILS % (AUTO) 82.2 % (42-75); PLATELET COUNT 308 X10'3 (140-440); RED BLOOD COUNT 2.55 X10'6 (4.20-5.60); RED CELL DISTRIBUTION WIDTH 16.4 % (11.5-14.5); WHITE BLOOD COUNT 9.5 X10'3 (4.5-11.0)
[2022-09-28 08:51] LABS: ALBUMIN 2.9 G/DL (3.4-5.0); ANION GAP 8 (8-16); BLOOD UREA NITROGEN 63 MG/DL (7-18); CALCIUM 7.8 MG/DL (8.5-10.1); CHLORIDE 100 MMOL/L (99-107); CREATININE 1.34 MG/DL (0.40-0.90); GLUCOSE 88 MG/DL (70-104); POTASSIUM 4.6 MMOL/L (3.5-5.1); SODIUM 132 MMOL/L (135-145); TOTAL CARBON DIOXIDE 24.4 MMOL/L (24-32); eGFR 40 ML/MIN
[2022-09-28] MEDS: multivitamins, therapeutics tablet PO SCH ×5 (08:57→20:36)
[2022-09-28] MEDS: acetaminophen 325mg tablet PO PRN ×2 (08:57→18:40)
[2022-09-28] MEDS: magnesium Cl slow-release 64mg tablet PO SCH ×2 (08:57→20:36)
[2022-09-28] MEDS: heparin, porcine 5000 units/ml vial SQ SCH ×2 (08:58→17:27)
[2022-09-28] MEDS: sennosides/docusate sodium tablet PO SCH ×2 (08:58→20:36)
[2022-09-28] MEDS: aspirin 81mg tab.chew PO SCH (08:58)
[2022-09-28] MEDS: atorvastatin 20mg tablet PO SCH (08:58)
[2022-09-28] MEDS: BUPRENORPHINE (Butrans) 10MCG PATCH.TDWK (7-day patch) TP SCH (11:30)
[2022-09-28] MEDS: JUVEN Smoothie Arginine/Glut./Ca2+Bmb (Juven 19.3pkt) 240ml cup PO SCH ×2 (13:00→18:13)
[2022-09-28] MEDS: DOBUTamine-DoBUTrex 500mg/D5W 250 ML IV SCH ×2 (15:08→17:26)
[2022-09-28 16:20] LABS: CHOLESTEROL 55 MG/DL (0-200); HDL CHOLESTEROL 11 MG/DL (35-60); LDL CHOLESTEROL 20 MG/DL (50-100); TRIGLYCERIDES 132 MG/DL (20-135)
[2022-09-28] MEDS ORDERED: DOBUTamine-DoBUTrex 500mg/D5W 250 ML IV SCH (17:28)
[2022-09-28] MEDS: gabapentin 100mg capsule PO SCH (19:28)
[2022-09-28] MEDS: doxepin 25mg capsule PO SCH (20:36)
[2022-09-29] VITALS (19 sets, daily range): BP systolic 94–144; BP diastolic 42–72
[2022-09-29] MEDS: heparin, porcine 5000 units/ml vial SQ SCH ×4 (00:33→23:34)
[2022-09-29] MEDS: acetaminophen 325mg tablet PO PRN ×4 (01:48→19:53)
[2022-09-29 02:30] LABS: CLARITY,URINE SLIGHTLY CLOUDY (Clear); COLOR,URINE YELLOW (Yellow); GLUCOSE, URINE NEGATIVE (Neg); KETONES,URINE NEGATIVE (Neg); LEUKOCYTE ESTERASE ,URINE NEGATIVE (Neg); NITRITES, URINE NEGATIVE (Neg); OCCULT BLOOD,URINE NEGATIVE (Neg); PH,URINE 5.5 (4.8-8.0); PROTEIN,URINE NEGATIVE (Neg); UROBILINOGEN,URINE 0.2 E.U/dL (0.2-1.0)
[2022-09-29 02:31] LABS: BASOPHILS # (AUTO) 0.1 X10'3 (0-0.2); BASOPHILS % (AUTO) 0.7 % (0-1); EOSINOPHILS # (AUTO) 0.1 X10'3 (0-0.9); EOSINOPHILS % (AUTO) 1.2 % (0-6); HEMATOCRIT 22.3 % (35.0-45.0); HEMOGLOBIN 7.4 g/dl (12.0-16.0); LYMPHOCYTES % (AUTO) 11.2 % (21-51); MEAN CORPUSCULAR HEMOGLOBIN 31.8 PG (27.0-31.0); MEAN CORPUSCULAR HGB CONC 33.3 g/dL (33.0-36.5); MEAN CORPUSCULAR VOLUME 95.6 FL (78-98); MEAN PLATELET VOLUME 7.6 FL (7.4-10.4); MONOCYTES # (AUTO) 0.5 X10'3 (0-0.9); NEUTROPHILS # (AUTO) 7.1 X10'3 (1.8-7.7); NEUTROPHILS % (AUTO) 80.9 % (42-75); PLATELET COUNT 324 X10'3 (140-440); RED BLOOD COUNT 2.33 X10'6 (4.20-5.60); RED CELL DISTRIBUTION WIDTH 15.8 % (11.5-14.5); WHITE BLOOD COUNT 8.8 X10'3 (4.5-11.0)
[2022-09-29 02:35] LABS: UA COLLECTION TYPE NON-SPECIFIED
[2022-09-29 02:37] LABS: SQUAMOUS EPITHELIAL CELL,UR FEW /LPF (FEW)
[2022-09-29 02:38] LABS: BACTERIA,URINE 2+ /HPF (Neg); TRANSITIONAL EPI CELLS,URINE MODERATE /HPF
[2022-09-29 02:39] LABS: RBC,URINE 0-2 /HPF (0-2)
[2022-09-29 02:47] LABS: SODIUM,URINE RANDOM < 15 MEQ/L; TOTAL PROTEIN,URINE RANDOM 70.3 MG/DL
[2022-09-29 02:59] LABS: ALBUMIN 2.6 G/DL (3.4-5.0); ANION GAP 5 (8-16); BLOOD UREA NITROGEN 58 MG/DL (7-18); BUN/CREATININE RATIO 56.3 (6.6-38.0); CALCIUM 8.1 MG/DL (8.5-10.1); CHLORIDE 101 MMOL/L (99-107); CREATININE 1.03 MG/DL (0.40-0.90); GLUCOSE 113 MG/DL (70-104); POTASSIUM 4.4 MMOL/L (3.5-5.1); SODIUM 131 MMOL/L (135-145); TOTAL CARBON DIOXIDE 25.4 MMOL/L (24-32); eGFR 54 ML/MIN
[2022-09-29] MEDS: budesonide 0.5mg/2ml UD nebule IH SCH ×2 (07:11→19:54)
[2022-09-29] MEDS: ipratropium/albuterol 3ml nebule NEB PRN ×2 (07:11→19:54)
[2022-09-29] MEDS: carVEDilol 3.125mg tablet PO SCH ×2 (08:00→19:53)
[2022-09-29] MEDS: atorvastatin 20mg tablet PO SCH (08:28)
[2022-09-29] MEDS: sennosides/docusate sodium tablet PO SCH ×2 (08:28→19:54)
[2022-09-29] MEDS: multivitamins, therapeutics tablet PO SCH ×4 (08:28→20:36)
[2022-09-29] MEDS: magnesium Cl slow-release 64mg tablet PO SCH ×2 (08:28→19:54)
[2022-09-29] MEDS: aspirin 81mg tab.chew PO SCH (08:28)
[2022-09-29] MEDS: pantoprazole 40mg Tablet.DR PO SCH (08:28)
[2022-09-29] MEDS: LACTOSE-REDUCED FOOD 237ML LIQUID PO SCH ×3 (08:29→17:11)
[2022-09-29] MEDS: JUVEN Smoothie Arginine/Glut./Ca2+Bmb (Juven 19.3pkt) 240ml cup PO SCH ×3 (08:29→17:11)
[2022-09-29] MEDS ORDERED: benzocaine/menthol oral lozeng 1 EACH BOX MM PRN (08:55)
[2022-09-29] MEDS ORDERED: HALLS - SOOTHE MENTHOL 1.8 MG cough drop LOZENGE MM PRN ×2 (09:14→09:15)
[2022-09-29] MEDS: DOBUTamine-DoBUTrex 500mg/D5W 250 ML IV SCH ×3 (14:08→18:30)
--- NOTE | 2022-09-29 14:55 | NUR ---
F/u 09/29: Pt PO remains poor regressing to mostly refusing meals past 3 days not meeting needs. 75-100% first two Alonso smoothies 09/28 though no intake of Ensure Plus HP TID or Alonso since. Pt seen by RD and RN to encourage PO intake; pt reports no food preferences outside of liking our tomato soup w/ crackers and brown sugar w/ cream of wheat WB. Pt now advanced to regular diet per MD; dietary notified of preferences. Pt reports does not like Alonso smoothie as is too cold despite telling RD yesterday that she prefers Alonso smoothie as Ensure Plus HP too thick. RN today reports pt likes Ensures; per pt during RD/RN visit Ensures give her mucous but will be taking mucinex to start tonight to okay continuing Ensure. Pt reports does not want Alonso smoothies as she is cold and they are too cold. RD encouraged pt to make further food preferences known given regular diet. Noted pt prior 12 days significant constipation w/ normal BM this AM per RN. Pt reports low appetite at baseline though prior constipation certainly to impact PO trends; receiving routine senna. Will monitor for further PO acceptance and nutrition intervention need this admit. Recommendations: 1. Continue regular diet; soft to chew chop all per pt request; encourage PO intake. [place] pt food preferences 2. Chocolate Ensure Plus HP TID; encourage intake 3. Routine bowel care; prior 12 days constipation 4. Weekly scaled weights Addendum: 09/29/22 at [address] Amended: Links added.
--- NOTE | 2022-09-29 15:57 | NUR ---
Patient in room PCU 3016a. I have received report from TEMITOPE RN and had the opportunity to ask questions and assume patient care.
--- NOTE | 2022-09-29 16:00 | NUR ---
Pt settled into bed. CT to low suction. Pt denies needs. She asked when her next norco was due. I informed her that her tylenol was available around 9 p.m. She accepted that. Call light in reach. Addendum: 09/29/22 at 1741 by My Sparks RN Amended: Links added.
--- NOTE | 2022-09-29 16:21 | NUR ---
Problems reprioritized. Patient report given, questions answered & plan of care reviewed with My.
[2022-09-29] MEDS: ascorbic acid 500mg tablet PO SCH (17:10)
--- NOTE | 2022-09-29 18:27 | NUR ---
Problems reprioritized. Patient report given, questions answered & plan of care reviewed with Marlen WHITEHEAD. Bedside report completed. Pt awaiting dinner. Addendum: 09/29/22 at 1828 by My Sparks RN Amended: Links added.
[2022-09-29] MEDS: guaiFENesin ER 600mg tablet PO SCH (19:54)
--- NOTE | 2022-09-29 20:00 | NUR ---
Room 2016A Pt.is awake alert oriented x 4 on Dobutamine gtt 5mcg. Pt. has a Triple Lumen PICC line and a saline lock. Anterior chest incision dry and intact. Anterior chest tubes with mod amt serosang drainage to Wall suction -20 cm.Able to use IS 500 ml. Right leg incision dry and intact. DP/PT pulses intact. Pt. c/o generalized pain and discomfort requesting pain medicine. Tylenol given tolerated well but still c/o pain and insomnia. Medicated as needed with no relief. Able to void per BSC with minimal assistance. Ate25% of pm meal. Plan alternative pain relief measures continue PT/OT for resilience and gait training.
[2022-09-29] MEDS: doxepin 25mg capsule PO SCH (20:36)
[2022-09-29] MEDS: diphenhydrAMINE 50 mg/ml inj IV PRN (23:34)
[2022-09-29] MEDS: ondansetron/PF 4mg/2ml inj IV PRN (23:34)
[2022-09-30] VITALS (9 sets, daily range): BP systolic 108–145; BP diastolic 53–84
[2022-09-30] MEDS: acetaminophen 325mg tablet PO PRN ×5 (01:48→20:41)
--- NOTE | 2022-09-30 05:07 | NUR ---
Changed rooms from 3016A to 3025 B in stable condition. Pt.had complained room-mate was too loud and was unable to sleep. Appears to be comfortable in new room. no further complaints.
[2022-09-30] MEDS: ondansetron/PF 4mg/2ml inj IV PRN (06:04)
--- NOTE | 2022-09-30 06:25 | NUR ---
Patient in room PCU 3025. I have received report from Marlen WHITEHEAD and had the opportunity to ask questions and assume patient care. Bedside report completed. Pt denies needs. Call light in reach. Addendum: 09/30/22 at 0640 by My Sparks RN Amended: Links added.
[2022-09-30 06:45] LABS: BASOPHILS # (AUTO) 0.1 X10'3 (0-0.2); BASOPHILS % (AUTO) 0.7 % (0-1); EOSINOPHILS # (AUTO) 0.1 X10'3 (0-0.9); EOSINOPHILS % (AUTO) 1.4 % (0-6); HEMATOCRIT 23.1 % (35.0-45.0); HEMOGLOBIN 7.8 g/dl (12.0-16.0); LYMPHOCYTES # (AUTO) 0.9 X10'3 (1.1-4.8); LYMPHOCYTES % (AUTO) 9.3 % (21-51); MEAN CORPUSCULAR HGB CONC 33.6 g/dL (33.0-36.5); MEAN CORPUSCULAR VOLUME 95.2 FL (78-98); MEAN PLATELET VOLUME 7.6 FL (7.4-10.4); MONOCYTES # (AUTO) 0.6 X10'3 (0-0.9); MONOCYTES % (AUTO) 6.5 % (2-12); NEUTROPHILS # (AUTO) 8.2 X10'3 (1.8-7.7); NEUTROPHILS % (AUTO) 82.1 % (42-75); PLATELET COUNT 379 X10'3 (140-440); RED BLOOD COUNT 2.43 X10'6 (4.20-5.60); RED CELL DISTRIBUTION WIDTH 16.1 % (11.5-14.5)
[2022-09-30 07:05] LABS: ALBUMIN 2.5 G/DL (3.4-5.0); ANION GAP 7 (8-16); BLOOD UREA NITROGEN 40 MG/DL (7-18); BUN/CREATININE RATIO 44.4 (6.6-38.0); CALCIUM 8.4 MG/DL (8.5-10.1); CHLORIDE 103 MMOL/L (99-107); GLUCOSE 88 MG/DL (70-104); POTASSIUM 4.5 MMOL/L (3.5-5.1); SODIUM 134 MMOL/L (135-145); TOTAL CARBON DIOXIDE 24.2 MMOL/L (24-32); eGFR 63 ML/MIN
[2022-09-30] MEDS: ipratropium/albuterol 3ml nebule NEB PRN ×2 (07:25→20:25)
[2022-09-30] MEDS: budesonide 0.5mg/2ml UD nebule IH SCH ×2 (07:25→20:25)
[2022-09-30] MEDS: ascorbic acid 500mg tablet PO SCH ×2 (07:40→17:04)
[2022-09-30] MEDS: carVEDilol 3.125mg tablet PO SCH ×2 (07:40→20:42)
[2022-09-30] MEDS: magnesium Cl slow-release 64mg tablet PO SCH ×2 (07:40→20:42)
[2022-09-30] MEDS: aspirin 81mg tab.chew PO SCH (07:40)
[2022-09-30] MEDS: guaiFENesin ER 600mg tablet PO SCH ×2 (07:41→20:38)
[2022-09-30] MEDS: atorvastatin 20mg tablet PO SCH (07:42)
[2022-09-30] MEDS: multivitamins, therapeutics tablet PO SCH ×4 (07:43→20:40)
[2022-09-30] MEDS: heparin, porcine 5000 units/ml vial SQ SCH ×3 (07:43→23:53)
[2022-09-30] MEDS: sennosides/docusate sodium tablet PO SCH ×2 (07:49→20:39)
[2022-09-30] MEDS: pantoprazole 40mg Tablet.DR PO SCH (07:49)
[2022-09-30] MEDS: JUVEN Smoothie Arginine/Glut./Ca2+Bmb (Juven 19.3pkt) 240ml cup PO SCH ×3 (07:53→18:00)
[2022-09-30] MEDS: LACTOSE-REDUCED FOOD 237ML LIQUID PO SCH ×3 (07:53→18:23)
--- NOTE | 2022-09-30 08:45 | NUR ---
I received phone call from Juliann the friend of Pt. Juliann stated that Pt asked he to bring in Pts pain patches. She was calling to confirm. I informed her that no order for pain patch had been received. When I questioned Pt, Sylvie stated that she did not ask Juliann to bring her patches just to pick them up.
[2022-09-30] MEDS: baclofen 10mg tablet PO PRN ×2 (09:56→17:50)
[2022-09-30] MEDS ORDERED: DOBUTamine-DoBUTrex 500mg/D5W 250 ML IV SCH (13:45)
[2022-09-30] MEDS ORDERED: furosemide 40mg/4ml inj IV ONE ×2 (13:45→16:50)
[2022-09-30] MEDS ORDERED: methylPREDNISolone sod succ 125mg/2ml vial IV ONE (16:55)
--- NOTE | 2022-09-30 18:22 | NUR ---
Problems reprioritized. Patient report given, questions answered & plan of care reviewed with Ginny WHITEHEAD. Bedside report completed.Call light in reach. Addendum: 09/30/22 at 1823 by My Sparks RN Amended: Links added.
--- NOTE | 2022-09-30 18:42 | NUR ---
Patient in room PCU 3025. I have received report from Armida WHITEHEAD and had the opportunity to ask questions and assume patient care.
[2022-09-30] MEDS: doxepin 25mg capsule PO SCH (20:39)
--- NOTE | 2022-09-30 23:00 | NUR ---
Problems reprioritized. Patient report given, questions answered & plan of care reviewed with Lizbeth WHITEHEAD.
[2022-10-01] VITALS (9 sets, daily range): BP systolic 108–149; BP diastolic 54–77
[2022-10-01] MEDS: baclofen 10mg tablet PO PRN ×3 (02:15→19:38)
[2022-10-01] MEDS: acetaminophen 325mg tablet PO PRN ×4 (03:52→17:36)
[2022-10-01] MEDS: diphenhydrAMINE 50 mg/ml inj IV PRN (03:52)
--- NOTE | 2022-10-01 06:14 | NUR ---
Patient in room PCU 3025. I have received report from Lizbeth WHITEHEAD and had the opportunity to ask questions and assume patient care. Bedside report completed. Pt relaxing. Blood draw in process from Picc line. Call light in reach. Addendum: 10/01/22 at 0624 by My Sparks RN Amended: Links added.
[2022-10-01 06:51] LABS: ALBUMIN 2.4 G/DL (3.4-5.0); ANION GAP 5 (8-16); BLOOD UREA NITROGEN 34 MG/DL (7-18); BUN/CREATININE RATIO 35.8 (6.6-38.0); CALCIUM 8.3 MG/DL (8.5-10.1); CHLORIDE 103 MMOL/L (99-107); CREATININE 0.95 MG/DL (0.40-0.90); GLUCOSE 112 MG/DL (70-104); POTASSIUM 4.5 MMOL/L (3.5-5.1); SODIUM 134 MMOL/L (135-145); TOTAL CARBON DIOXIDE 26.4 MMOL/L (24-32); eGFR 59 ML/MIN
[2022-10-01] MEDS: JUVEN Smoothie Arginine/Glut./Ca2+Bmb (Juven 19.3pkt) 240ml cup PO SCH ×2 (08:00→12:56)
[2022-10-01] MEDS: magnesium Cl slow-release 64mg tablet PO SCH ×2 (08:27→19:38)
[2022-10-01] MEDS: multivitamins, therapeutics tablet PO SCH ×4 (08:27→21:00)
[2022-10-01] MEDS: pantoprazole 40mg Tablet.DR PO SCH (08:27)
[2022-10-01] MEDS: sennosides/docusate sodium tablet PO SCH ×2 (08:27→19:38)
[2022-10-01] MEDS: guaiFENesin ER 600mg tablet PO SCH ×2 (08:27→19:38)
[2022-10-01] MEDS: carVEDilol 3.125mg tablet PO SCH ×2 (08:27→19:38)
[2022-10-01] MEDS: ascorbic acid 500mg tablet PO SCH ×2 (08:28→17:36)
[2022-10-01] MEDS: heparin, porcine 5000 units/ml vial SQ SCH ×2 (08:28→16:29)
[2022-10-01] MEDS: atorvastatin 20mg tablet PO SCH (08:28)
[2022-10-01] MEDS: aspirin 81mg tab.chew PO SCH (08:30)
[2022-10-01] MEDS: LACTOSE-REDUCED FOOD 237ML LIQUID PO SCH ×2 (08:35→12:56)
[2022-10-01] MEDS: budesonide 0.5mg/2ml UD nebule IH SCH ×2 (09:00→20:17)
[2022-10-01] MEDS ORDERED: DOBUTamine-DoBUTrex 500mg/D5W 250 ML IV SCH (09:22)
[2022-10-01] MEDS: furosemide 20 MG/2 ML vial IV SCH (10:18)
--- NOTE | 2022-10-01 18:19 | NUR ---
Problems reprioritized. Patient report given, questions answered & plan of care reviewed with Milan WHITEHEAD. Bedside report completed. Pt sitting on side of bed.Call light in reach. Addendum: 10/01/22 at 1820 by My Sparks RN Amended: Links added.
[2022-10-01] MEDS: ipratropium/albuterol 3ml nebule NEB PRN (20:17)
[2022-10-01] MEDS: doxepin 25mg capsule PO SCH (21:00)
[2022-10-02] MEDS: heparin, porcine 5000 units/ml vial SQ SCH ×3 (00:11→15:31)
[2022-10-02] MEDS: acetaminophen 325mg tablet PO PRN ×4 (00:55→18:34)
[2022-10-02 02:00] VITALS: BP 111/58
[2022-10-02 06:00] VITALS: BP 129/63
--- NOTE | 2022-10-02 06:49 | NUR ---
Patient in room PCU 3029I. I have received report from Milan WHITEHEAD and had the opportunity to ask questions and assume patient care. Pt on 3L NC, No s/s of distress. Pt has c/o pain. Please see eMAR and interventions. PT has CT to waterseal. No s/s of leakage. Pt had dobutamine GTT running @ 2mcg/kg/min. Pt tolerating well. TELE in place, BP monitior in place. Alarm sound audiable. BLL, call light wihtin reach, frequently used items in reach, frequent rounding, shake backboard notcher sock on. Will ocntinue to monitor.
[2022-10-02] MEDS: magnesium Cl slow-release 64mg tablet PO SCH ×2 (07:22→20:00)
[2022-10-02] MEDS: guaiFENesin ER 600mg tablet PO SCH ×2 (07:22→20:39)
[2022-10-02] MEDS: furosemide 20 MG/2 ML vial IV SCH (07:22)
[2022-10-02] MEDS: pantoprazole 40mg Tablet.DR PO SCH (07:22)
[2022-10-02] MEDS: carVEDilol 3.125mg tablet PO SCH ×2 (07:23→20:39)
[2022-10-02] MEDS: atorvastatin 20mg tablet PO SCH (07:23)
[2022-10-02] MEDS: sennosides/docusate sodium tablet PO SCH ×2 (07:23→20:39)
[2022-10-02] MEDS: multivitamins, therapeutics tablet PO SCH ×4 (07:23→20:39)
[2022-10-02] MEDS: baclofen 10mg tablet PO PRN ×2 (07:24→15:27)
[2022-10-02] MEDS: ipratropium/albuterol 3ml nebule NEB PRN (07:33)
[2022-10-02] MEDS: budesonide 0.5mg/2ml UD nebule IH SCH ×2 (07:33→20:20)
[2022-10-02] MEDS: LACTOSE-REDUCED FOOD 237ML LIQUID PO SCH ×3 (08:00→18:00)
[2022-10-02] MEDS: JUVEN Smoothie Arginine/Glut./Ca2+Bmb (Juven 19.3pkt) 240ml cup PO SCH ×3 (08:00→18:00)
[2022-10-02] MEDS: aspirin 81mg tab.chew PO SCH (08:48)
[2022-10-02] MEDS: ascorbic acid 500mg tablet PO SCH ×2 (08:48→17:30)
[2022-10-02] MEDS ORDERED: DOBUTamine-DoBUTrex 500mg/D5W 250 ML IV SCH (08:55)
[2022-10-02 11:30] VITALS: BP 110/50
[2022-10-02 11:33] LABS: ALBUMIN 2.3 G/DL (3.4-5.0); ANION GAP 7 (8-16); BLOOD UREA NITROGEN 23 MG/DL (7-18); BUN/CREATININE RATIO 29.1 (6.6-38.0); CALCIUM 8.1 MG/DL (8.5-10.1); CHLORIDE 102 MMOL/L (99-107); CREATININE 0.79 MG/DL (0.40-0.90); GLUCOSE 100 MG/DL (70-104); POTASSIUM 3.5 MMOL/L (3.5-5.1); SODIUM 136 MMOL/L (135-145); TOTAL CARBON DIOXIDE 26.8 MMOL/L (24-32); eGFR 73 ML/MIN
[2022-10-02] MEDS ORDERED: potassium Cl 20 mEq SR tablet PO ONE (12:25)
[2022-10-02] MEDS ORDERED: furosemide 20 MG/2 ML vial IV ONE (12:25)
[2022-10-02] MEDS ORDERED: furosemide 40mg/4ml inj IV ONE (12:45)
--- NOTE | 2022-10-02 15:33 | NUR ---
Pt Friend Melinda stated she will bring in this Pts Buprenorphine 10mcg Q7D ON Monday10/03/22 Addendum: 10/02/22 at 1703 by Ethel Hess RN Pt stated her friend Melinda will bring in the requested medication (Butrans Q7D Patch) on monday10/03/2022. -Thanks Ethel EXT [id number] Message to Pharmacy
[2022-10-02] MEDS: furosemide 40mg/4ml inj IV SCH (20:38)
[2022-10-02] MEDS: doxepin 25mg capsule PO SCH (21:49)
[2022-10-02] MEDS: diphenhydrAMINE 50 mg/ml inj IV PRN (21:50)
[2022-10-03] VITALS (12 sets, daily range): BP systolic 110–150; BP diastolic 50–77
[2022-10-03] MEDS: sennosides/docusate sodium tablet PO SCH ×2 (07:51→20:51)
[2022-10-03] MEDS: aspirin 81mg tab.chew PO SCH (07:51)
[2022-10-03] MEDS: multivitamins, therapeutics tablet PO SCH ×4 (07:53→20:51)
[2022-10-03] MEDS: atorvastatin 20mg tablet PO SCH (07:53)
[2022-10-03] MEDS: ascorbic acid 500mg tablet PO SCH ×2 (07:53→20:49)
[2022-10-03] MEDS: pantoprazole 40mg Tablet.DR PO SCH (07:53)
[2022-10-03] MEDS: magnesium Cl slow-release 64mg tablet PO SCH ×2 (07:53→20:51)
[2022-10-03] MEDS: carVEDilol 3.125mg tablet PO SCH ×2 (07:54→20:50)
[2022-10-03] MEDS: acetaminophen 325mg tablet PO PRN ×2 (07:54→20:55)
[2022-10-03] MEDS: LACTOSE-REDUCED FOOD 237ML LIQUID PO SCH ×3 (07:55→18:00)
[2022-10-03] MEDS: baclofen 10mg tablet PO PRN ×2 (07:55→15:52)
[2022-10-03] MEDS: heparin, porcine 5000 units/ml vial SQ SCH ×3 (07:57→15:50)
[2022-10-03] MEDS: furosemide 40mg/4ml inj IV SCH ×2 (07:58→20:52)
[2022-10-03] MEDS: guaiFENesin ER 600mg tablet PO SCH ×2 (08:00→20:51)
[2022-10-03] MEDS: JUVEN Smoothie Arginine/Glut./Ca2+Bmb (Juven 19.3pkt) 240ml cup PO SCH ×5 (08:00→15:57)
[2022-10-03] MEDS: budesonide 0.5mg/2ml UD nebule IH SCH ×2 (09:09→20:28)
[2022-10-03] MEDS ORDERED: SUMAtriptan 25 MG tablet PO PRN (12:25)
--- NOTE | 2022-10-03 19:09 | NUR ---
F/u 10/03: Pt PO remains poor ~25% avg regular diet receiving chocolate Ensure Plus High Protein TIDWM however Ensure intake % not documented to unable to accurately determine nutrition intake. Pt likely not meeting estimated needs given current meal intake trends though if was drinking all of ONS would be meeting needs. RD attempted to find RN on floor during the day to assess ONS intake however unsuccessful. Noted Alonso smoothie TIDWM still active and documented as receiving in EMR, however pt as not been receiving since she requested dietary to stop them after RD visit 09/29. RD left message for night RN regarding cancelling Alonso ONS if MD agreeable since pt not receiving anyways per preference. LBM 10/02. Will monitor for further PO documentation trends and nutrition intervention needs this admit. Recommendations: 1. Continue regular diet; soft to chew chop all per pt request; encourage PO intake. [place] pt food preferences 2. Chocolate Ensure Plus High Protein TID; encourage intake 3. Cancel Alonso smoothie ONS in EMR if MD agreeable; pt not receiving anyways since she requested dietary to stop sending 09/29 4. Consider appetite stimulant per physician discretion if poor acceptance of meals/ONS is persistent 5. Routine bowel care; prior 12 days constipation 6. Weekly scaled weights Addendum: 10/03/22 at [address] Amended: Links added.
[2022-10-03] MEDS: ipratropium/albuterol 3ml nebule NEB PRN (20:28)
[2022-10-03] MEDS: doxepin 25mg capsule PO SCH (20:50)
[2022-10-04] VITALS (8 sets, daily range): BP systolic 94–148; BP diastolic 45–87
[2022-10-04] MEDS: heparin, porcine 5000 units/ml vial SQ SCH ×3 (02:26→23:28)
--- NOTE | 2022-10-04 06:45 | NUR ---
Problems reprioritized. Patient report given, questions answered & plan of care reviewed with Eboni WHITEHEAD. Addendum: 10/04/22 at 0649 by Tory Coleman RN Problems reprioritized. Patient report given, questions answered & plan of care reviewed with Luz WHITEHEAD. Not Eboni as previously stated
[2022-10-04] MEDS: furosemide 40mg/4ml inj IV SCH ×2 (08:00→21:05)
[2022-10-04] MEDS: ascorbic acid 500mg tablet PO SCH ×2 (08:29→20:55)
[2022-10-04] MEDS: pantoprazole 40mg Tablet.DR PO SCH (08:29)
[2022-10-04] MEDS: carVEDilol 3.125mg tablet PO SCH ×2 (08:30→21:04)
[2022-10-04] MEDS: magnesium Cl slow-release 64mg tablet PO SCH ×2 (08:30→20:55)
[2022-10-04] MEDS: multivitamins, therapeutics tablet PO SCH ×3 (08:30→20:58)
[2022-10-04] MEDS: sennosides/docusate sodium tablet PO SCH ×2 (08:31→20:54)
[2022-10-04] MEDS: baclofen 10mg tablet PO PRN ×2 (08:31→16:45)
[2022-10-04] MEDS: atorvastatin 20mg tablet PO SCH (08:32)
[2022-10-04] MEDS: aspirin 81mg tab.chew PO SCH (08:32)
[2022-10-04] MEDS: JUVEN Smoothie Arginine/Glut./Ca2+Bmb (Juven 19.3pkt) 240ml cup PO SCH ×4 (08:33→14:37)
[2022-10-04] MEDS: LACTOSE-REDUCED FOOD 237ML LIQUID PO SCH ×3 (08:34→18:00)
[2022-10-04] MEDS: guaiFENesin ER 600mg tablet PO SCH ×2 (08:34→20:56)
[2022-10-04] MEDS: acetaminophen 325mg tablet PO PRN ×3 (08:44→21:04)
[2022-10-04] MEDS: ipratropium/albuterol 3ml nebule NEB PRN ×2 (09:24→19:56)
[2022-10-04] MEDS: budesonide 0.5mg/2ml UD nebule IH SCH ×2 (09:24→19:56)
[2022-10-04 20:23] LABS: ALBUMIN 2.7 G/DL (3.4-5.0); ANION GAP 10 (8-16); BLOOD UREA NITROGEN 22 MG/DL (7-18); BUN/CREATININE RATIO 25.3 (6.6-38.0); CALCIUM 8.3 MG/DL (8.5-10.1); CHLORIDE 100 MMOL/L (99-107); CREATININE 0.87 MG/DL (0.40-0.90); GLUCOSE 131 MG/DL (70-104); POTASSIUM 3.4 MMOL/L (3.5-5.1); SODIUM 135 MMOL/L (135-145); TOTAL CARBON DIOXIDE 25.1 MMOL/L (24-32); eGFR 65 ML/MIN
[2022-10-04] MEDS: doxepin 25mg capsule PO SCH (20:56)
[2022-10-04] MEDS: diphenhydrAMINE 50 mg/ml inj IV PRN (21:08)
[2022-10-04] MEDS: potassium Cl 20 mEq SR tablet PO PRN (23:35)
[2022-10-05 02:00] VITALS: BP 144/79
[2022-10-05] MEDS: potassium Cl 20 mEq SR tablet PO PRN (04:50)
[2022-10-05] MEDS: acetaminophen 325mg tablet PO PRN (04:51)
[2022-10-05 06:00] VITALS: BP 131/82
--- NOTE | 2022-10-05 06:38 | NUR ---
Problems reprioritized. Patient report given, questions answered & plan of care reviewed with Ethel WIHTEHEAD.
--- NOTE | 2022-10-05 06:49 | NUR ---
Patient in room PCU 3020M. I have received report from Tory WHITEHEAD and had the opportunity to ask questions and assume patient care. Pt is laying on R side of body, and is resting comfortably. Pt on 2L NC, No s/s of distress, no s/s of pain. Pt on dobutamine GTT running @ 1mcg/kg/min in L central line. BLL, call light within reach, frequently used items in reach, frequent rounding, weaver hand socks on, will continue to monitor.
[2022-10-05] MEDS: LACTOSE-REDUCED FOOD 237ML LIQUID PO SCH (08:00)
[2022-10-05] MEDS: baclofen 10mg tablet PO PRN ×2 (08:55→16:57)
[2022-10-05] MEDS: carVEDilol 3.125mg tablet PO SCH (08:56)
[2022-10-05] MEDS: magnesium Cl slow-release 64mg tablet PO SCH (08:56)
[2022-10-05] MEDS: aspirin 81mg tab.chew PO SCH (08:56)
[2022-10-05] MEDS: guaiFENesin ER 600mg tablet PO SCH (08:56)
[2022-10-05] MEDS: atorvastatin 20mg tablet PO SCH (08:56)
[2022-10-05] MEDS: multivitamins, therapeutics tablet PO SCH ×2 (08:56→14:21)
[2022-10-05] MEDS: sennosides/docusate sodium tablet PO SCH (08:56)
[2022-10-05] MEDS: ascorbic acid 500mg tablet PO SCH (08:56)
[2022-10-05] MEDS: JUVEN Smoothie Arginine/Glut./Ca2+Bmb (Juven 19.3pkt) 240ml cup PO SCH (08:57)
[2022-10-05] MEDS: furosemide 40mg/4ml inj IV SCH (08:57)
[2022-10-05] MEDS: heparin, porcine 5000 units/ml vial SQ SCH (09:01)
[2022-10-05] MEDS: pantoprazole 40mg Tablet.DR PO SCH (09:02)
[2022-10-05 09:14] LABS: ALBUMIN, UR 9.3 % (.); ALPHA-1-GLOBULIN,UR 2.9 % (.); ALPHA-2-GLOBULIN,UR 33.7 % (.); BETA GLOBULIN, UR 27.2 % (.); GAMMA GLOBULIN,UR 26.9 % (.); PROTEIN,TOTAL,URINE 38.2 mg/dL (Not Estab.)
[2022-10-05 09:34] LABS: BASOPHILS # (AUTO) 0.1 X10'3 (0-0.2); BASOPHILS % (AUTO) 0.7 % (0-1); EOSINOPHILS # (AUTO) 0.4 X10'3 (0-0.9); EOSINOPHILS % (AUTO) 4.7 % (0-6); HEMOGLOBIN 9.3 g/dl (12.0-16.0); LYMPHOCYTES # (AUTO) 1.1 X10'3 (1.1-4.8); LYMPHOCYTES % (AUTO) 13.2 % (21-51); MEAN CORPUSCULAR HEMOGLOBIN 31.6 PG (27.0-31.0); MEAN CORPUSCULAR HGB CONC 33.3 g/dL (33.0-36.5); MEAN CORPUSCULAR VOLUME 94.9 FL (78-98); MEAN PLATELET VOLUME 7.2 FL (7.4-10.4); MONOCYTES # (AUTO) 0.6 X10'3 (0-0.9); MONOCYTES % (AUTO) 6.8 % (2-12); NEUTROPHILS # (AUTO) 6.2 X10'3 (1.8-7.7); NEUTROPHILS % (AUTO) 74.6 % (42-75); PLATELET COUNT 582 X10'3 (140-440); RED BLOOD COUNT 2.95 X10'6 (4.20-5.60); RED CELL DISTRIBUTION WIDTH 16.9 % (11.5-14.5); WHITE BLOOD COUNT 8.3 X10'3 (4.5-11.0)
[2022-10-05 09:49] LABS: ANION GAP 8 (8-16); CHLORIDE 102 MMOL/L (99-107); POTASSIUM 3.8 MMOL/L (3.5-5.1); SODIUM 137 MMOL/L (135-145); TOTAL CARBON DIOXIDE 26.8 MMOL/L (24-32)
[2022-10-05 09:51] LABS: ALBUMIN 2.8 G/DL (3.4-5.0); BLOOD UREA NITROGEN 20 MG/DL (7-18); CALCIUM 8.5 MG/DL (8.5-10.1); GLUCOSE 103 MG/DL (70-104); eGFR 72 ML/MIN
[2022-10-05] MEDS: HYDROcodone/acetaminophen 5mg/325mg tablet PO PRN ×2 (11:15→16:28)
[2022-10-05] MEDS: BUPRENORPHINE (Butrans) 10MCG PATCH.TDWK (7-day patch) TP SCH (11:30)
[2022-10-05] MEDS: budesonide 0.5mg/2ml UD nebule IH SCH (11:43)
--- NOTE | 2022-10-05 14:23 | NUR ---
BUPRENORPHINE TRANSDERMAL 10mcg/hour placed on R anterior shoulder.
--- NOTE | 2022-10-05 15:17 | NUR ---
Problems reprioritized. Patient report given, questions answered & plan of care reviewed with Anne ARELLANO at [facility] TCU unit. All DC questions answered. Midline to L upper arm DCd per order. Tip intact, Pt tolerated removal well. No c/o pain. Site dressed with gauze and tegaderm. PICC to R upper arm DCd per order. Tip intact, Pt tolerated removal well. No c/o pain. Site dressed with gauze and tegaderm. Pt will be picked up at 1600, transported with 2L NC.
--- NOTE | 2022-10-05 17:27 | NUR ---
Pt DC'd to [facility] in [facility], and with 3L NC. All personal belongings with PT as well as pain medication patches. Report to margaret already called, please see previous notes. VSS, Pt afebrile, no issues with medication.
== END 2022-10-05 17:05 | DRG 233 ==
LOC: ER 02:14 → ED HOLD 04:00 → PCU 3S 16:02 → CICU 2S 09-19 12:14 → PCU 3S 09-24 09:41 → CICU 2S 09-27 12:10 → PCU 3S 09-29 17:38
PROVIDERS: ADMIT Family Medicine; ATTEND Internal Medicine
PROC: B32T1ZZ Computerized Tomography (CT Scan) of Left Pulmonary Artery using Low Osmolar Contrast (ICD-10-PCS; 2022-09-14)
PROC: B3201ZZ Computerized Tomography (CT Scan) of Thoracic Aorta using Low Osmolar Contrast (ICD-10-PCS; 2022-09-14)
PROC: B32S1ZZ Computerized Tomography (CT Scan) of Right Pulmonary Artery using Low Osmolar Contrast (ICD-10-PCS; 2022-09-14)
PROC: 4A023N8 Measurement of Cardiac Sampling and Pressure, Bilateral, Percutaneous Approach (ICD-10-PCS; 2022-09-15)
PROC: B2111ZZ Fluoroscopy of Multiple Coronary Arteries using Low Osmolar Contrast (ICD-10-PCS; 2022-09-15)
PROC: B2151ZZ Fluoroscopy of Left Heart using Low Osmolar Contrast (ICD-10-PCS; 2022-09-15)
PROC: B31N1ZZ Fluoroscopy of Other Upper Arteries using Low Osmolar Contrast (ICD-10-PCS; 2022-09-15)
PROC: B51M1ZZ Fluoroscopy of Right Upper Extremity Veins using Low Osmolar Contrast (ICD-10-PCS; 2022-09-15)
PROC: 5A1935Z Respiratory Ventilation, Less than 24 Consecutive Hours (ICD-10-PCS; 2022-09-15)
PROC: 0BH17EZ Insertion of Endotracheal Airway into Trachea, Via Natural or Artificial Opening (ICD-10-PCS; 2022-09-15)
PROC: 30233N1 Transfusion of Nonautologous Red Blood Cells into Peripheral Vein, Percutaneous Approach (ICD-10-PCS; 2022-09-15)
PROC: 30233N1 Transfusion of Nonautologous Red Blood Cells into Peripheral Vein, Percutaneous Approach (ICD-10-PCS; 2022-09-15)
PROC: 30233N1 Transfusion of Nonautologous Red Blood Cells into Peripheral Vein, Percutaneous Approach (ICD-10-PCS; 2022-09-15)
PROC: B3251ZZ Computerized Tomography (CT Scan) of Bilateral Common Carotid Arteries using Low Osmolar Contrast (ICD-10-PCS; 2022-09-16)
PROC: B32G1ZZ Computerized Tomography (CT Scan) of Bilateral Vertebral Arteries using Low Osmolar Contrast (ICD-10-PCS; 2022-09-16)
PROC: B32R1ZZ Computerized Tomography (CT Scan) of Intracranial Arteries using Low Osmolar Contrast (ICD-10-PCS; 2022-09-16)
PROC: B3281ZZ Computerized Tomography (CT Scan) of Bilateral Internal Carotid Arteries using Low Osmolar Contrast (ICD-10-PCS; 2022-09-16)
PROC: 02100Z9 Bypass Coronary Artery, One Artery from Left Internal Mammary, Open Approach (ICD-10-PCS; 2022-09-19)
PROC: 021109W Bypass Coronary Artery, Two Arteries from Aorta with Autologous Venous Tissue, Open Approach (ICD-10-PCS; 2022-09-19)
PROC: 06BQ4ZZ Excision of Left Saphenous Vein, Percutaneous Endoscopic Approach (ICD-10-PCS; 2022-09-19)
PROC: 5A1221Z Performance of Cardiac Output, Continuous (ICD-10-PCS; 2022-09-19)
PROC: B24BZZ4 Ultrasonography of Heart with Aorta, Transesophageal (ICD-10-PCS; 2022-09-19)
PROC: 02100Z8 Bypass Coronary Artery, One Artery from Right Internal Mammary, Open Approach (ICD-10-PCS; principal; 2022-09-19 08:00)
PROC: 5A0935A Assistance with Respiratory Ventilation, Less than 24 Consecutive Hours, High Flow/Velocity Cannula (ICD-10-PCS; 2022-09-22)
PROC: 5A0935A Assistance with Respiratory Ventilation, Less than 24 Consecutive Hours, High Flow/Velocity Cannula (ICD-10-PCS; 2022-09-23)
PROC: 5A0935A Assistance with Respiratory Ventilation, Less than 24 Consecutive Hours, High Flow/Velocity Cannula (ICD-10-PCS; 2022-09-26)
PROC: 5A0935A Assistance with Respiratory Ventilation, Less than 24 Consecutive Hours, High Flow/Velocity Cannula (ICD-10-PCS; 2022-09-27)
PROC: 5A0935A Assistance with Respiratory Ventilation, Less than 24 Consecutive Hours, High Flow/Velocity Cannula (ICD-10-PCS; 2022-09-28)
PROC: 5A0935A Assistance with Respiratory Ventilation, Less than 24 Consecutive Hours, High Flow/Velocity Cannula (ICD-10-PCS; 2022-09-29)
PROC: 5A0935A Assistance with Respiratory Ventilation, Less than 24 Consecutive Hours, High Flow/Velocity Cannula (ICD-10-PCS; 2022-10-01)
PROC: 5A0935A Assistance with Respiratory Ventilation, Less than 24 Consecutive Hours, High Flow/Velocity Cannula (ICD-10-PCS; 2022-10-02)
PROC: 5A0935A Assistance with Respiratory Ventilation, Less than 24 Consecutive Hours, High Flow/Velocity Cannula (ICD-10-PCS; 2022-10-03)
PROC: 5A0935A Assistance with Respiratory Ventilation, Less than 24 Consecutive Hours, High Flow/Velocity Cannula (ICD-10-PCS; 2022-10-04)
DX: I25.10 Atherosclerotic heart disease of native coronary artery without angina pectoris (principal); I21.A1 Myocardial infarction type 2; J96.01 Acute respiratory failure with hypoxia; R57.0 Cardiogenic shock; I50.23 Acute on chronic systolic (congestive) heart failure; E87.1 Hypo-osmolality and hyponatremia; I13.0 Hypertensive heart and chronic kidney disease with heart failure and stage 1 through stage 4 chronic kidney disease, or unspecified chronic kidney disease; J44.1 Chronic obstructive pulmonary disease with (acute) exacerbation; J93.82 Other air leak; J93.9 Pneumothorax, unspecified; N17.9 Acute kidney failure, unspecified; D62 Acute posthemorrhagic anemia; Z20.822 Contact with and (suspected) exposure to COVID-19; E78.5 Hyperlipidemia, unspecified; F17.290 Nicotine dependence, other tobacco product, uncomplicated; F32.A Depression, unspecified; J02.9 Acute pharyngitis, unspecified; G47.9 Sleep disorder, unspecified; M54.9 Dorsalgia, unspecified; F41.9 Anxiety disorder, unspecified; G89.4 Chronic pain syndrome; Z60.2 Problems related to living alone; I25.5 Ischemic cardiomyopathy; I65.21 Occlusion and stenosis of right carotid artery; I70.209 Unspecified atherosclerosis of native arteries of extremities, unspecified extremity; N18.30 Chronic kidney disease, stage 3 unspecified; Z79.82 Long term (current) use of aspirin; Z86.73 Personal history of transient ischemic attack (TIA), and cerebral infarction without residual deficits; Z88.0 Allergy status to penicillin; Z90.710 Acquired absence of both cervix and uterus; Z91.199 Patient's noncompliance with other medical treatment and regimen due to unspecified reason; Z95.5 Presence of coronary angioplasty implant and graft; Z88.6 Allergy status to analgesic agent; I25.2 Old myocardial infarction; Z79.899 Other long term (current) drug therapy; Z71.6 Tobacco abuse counseling
CPT/HCPCS: 36410; 36415; 36430; 36569; 36600; 70498; 71045; 71275; 76770; 76937; 76942; 80048; 80053; 80061; 80202; 80305; 81001; 81003; 82140; 82330; 82435; 82803; 82947; 82948; 83605; 83735; 83880; 84100; 84132; 84145; 84156; 84166; 84295; 84300; 84443; 84478; 84484; 85007; 85008; 85014; 85018; 85025; 85347; 85384; 85610; 85730; 86870; 86885; 86900; 86901; 86902; 86905; 86920; 86922; 87040; 87070; 87077; 87081; 87088; 87186; 87502; 87503; 87635; 87811; 90686; 90732; 93005; 93306; 93312; 93325; 93460; 93880; 93931; 93970; 94002; 94003; 94640; 94660; 94664; 94668; 94760; 96361; 96374; 97110; 97116; 97530; 97535; 99152; 99153; 99291; A4333; A4615; A4618; A6223; A6258; A6402; A6449; A7000; A7015; C1713; C1725; C1751; C1769; C1894; C9803; G0378; J0171; J0690; J1100; J1200; J1250; J1644; J1815; J1885; J1940; J1956; J2060; J2250; J2270; J2310; J2370; J2405; J2440; J2704; J2720; J2930; J3010; J3370; J3475; J3480; J3490; J7030; J7040; J7042; J7050; J7060; J7120; P9016; P9045; P9047; Q0163; Q9967; S0020

== ENCOUNTER 2023-06-20 11:09 | Outpatient (CLI) | payer MEDICARE, MEDICAID ==
[~2023-06-20 11:09] MED LIST changes: +ALBU18HF2 PO; -ASPI-611 PO; -ATOR-2 PO; +ATR0.5NEB INH; +BACL10TA2 PO; +BIOT5000 PO; +BUPR1PAT9 TOP; -CARV3.122 PO; +CARV3.1244 PO; -FURO40TA4 PO; -HYDR-3686 PO; +HYDR-3964 PO; -LISI10TA27 PO; +LISI20TA28 PO; +MAGN400C PO; +MELA10TA2 PO; -MELA3TAB39 PO; +NITR0.4T48 SL; -ONDA4TAB12 PO; +PANT40TA54 PO; -POTA-207 PO; +PRAV10TA39 PO; -SERT-432 PO; +SUMA100T16 PO
== END 2023-06-20 23:59 | disposition home or self-care (01) ==
LOC: RAD 11:09
PROVIDERS: ATTEND Family Medicine
DX: S62.001A Unspecified fracture of navicular [scaphoid] bone of right wrist, initial encounter for closed fracture (principal); Z91.81 History of falling; X58.XXXA Exposure to other specified factors, initial encounter; Y93.89 Activity, other specified; Y92.89 Other specified places as the place of occurrence of the external cause; Y99.8 Other external cause status
CPT/HCPCS: 71046; 73110

== ENCOUNTER 2023-08-01 11:46 | Outpatient (CLI) | payer MEDICARE, MEDICAID ==
[2023-08-01 12:26] LABS: BASOPHILS # (AUTO) 0.1 X10'3 (0-0.2); BASOPHILS % (AUTO) 0.8 % (0-1); EOSINOPHILS # (AUTO) 0.1 X10'3 (0-0.9); HEMATOCRIT 43.3 % (35.0-45.0); HEMOGLOBIN 14.4 g/dl (12.0-16.0); LYMPHOCYTES # (AUTO) 1.3 X10'3 (1.1-4.8); LYMPHOCYTES % (AUTO) 18.8 % (21-51); MEAN CORPUSCULAR HEMOGLOBIN 31.8 PG (27.0-31.0); MEAN CORPUSCULAR HGB CONC 33.2 g/dL (33.0-36.5); MEAN CORPUSCULAR VOLUME 95.8 FL (78-98); MONOCYTES # (AUTO) 0.6 X10'3 (0-0.9); MONOCYTES % (AUTO) 8.7 % (2-12); NEUTROPHILS # (AUTO) 4.9 X10'3 (1.8-7.7); NEUTROPHILS % (AUTO) 70.7 % (42-75); PLATELET COUNT 236 X10'3 (140-440); RED BLOOD COUNT 4.52 X10'6 (4.20-5.60); RED CELL DISTRIBUTION WIDTH 14.6 % (11.5-14.5); WHITE BLOOD COUNT 6.9 X10'3 (4.5-11.0)
== END 2023-08-01 23:59 | disposition home or self-care (01) ==
LOC: RAD 11:46
PROVIDERS: ATTEND Thoracic Surgery (Cardiothoracic Vascular Surgery)
DX: R91.1 Solitary pulmonary nodule (principal); J98.51 Mediastinitis; J43.9 Emphysema, unspecified; M79.89 Other specified soft tissue disorders
CPT/HCPCS: 36415; 71250; 85025

== ENCOUNTER 2024-12-20 15:17 | Emergency (ER) | payer MEDICARE, MEDICAID ==
[~2024-12-20] VITALS: Ht 168.9 cm; Wt 68.2 kg
[~2024-12-20 15:17] MED LIST changes: +ASCORBIC ACID; +ATOR80TA PO; -BIOT5000 PO; +ERGO400C PO; +FURO-150 PO; -HYDR-3964 PO; +HYDR-3972 PO; -LISI20TA28 PO; -NITR0.4T48 SL; -PRAV10TA39 PO; -SUMA100T16 PO; +VITA-288 PO; +VITA800012 PO
[2024-12-20 15:23] VITALS: BP 145/84; PULSE 93; RESP 18; TEMP 98; O2SAT 99
== END 2024-12-20 15:41 | disposition home or self-care (01) ==
LOC: ER 15:18
DX: M25.562 Pain in left knee (principal); M25.561 Pain in right knee; E78.00 Pure hypercholesterolemia, unspecified; I25.10 Atherosclerotic heart disease of native coronary artery without angina pectoris; J44.9 Chronic obstructive pulmonary disease, unspecified; I13.0 Hypertensive heart and chronic kidney disease with heart failure and stage 1 through stage 4 chronic kidney disease, or unspecified chronic kidney disease; I50.9 Heart failure, unspecified; N18.9 Chronic kidney disease, unspecified; G89.29 Other chronic pain; M54.9 Dorsalgia, unspecified; Z88.0 Allergy status to penicillin; Z88.6 Allergy status to analgesic agent; Z95.1 Presence of aortocoronary bypass graft; Z79.899 Other long term (current) drug therapy
CPT/HCPCS: 99282

== ENCOUNTER 2025-04-19 22:30 | Emergency (ER) | payer MEDICARE, MEDICAID ==
[~2025-04-19] VITALS: Ht 167.6 cm; Wt 64.7 kg
[2025-04-19 22:34] VITALS: TEMP 97.4
--- NOTE | 2025-04-19 23:05 | Physician Documentation ---
History of Present Illness ~ General Chief Complaint: Multiple Medical Complaints Stated Complaint: MOSQUITO BITES Time Seen by MD: 00:12 Primary Medical Doctor: Faustino History of Present Illness Initial Comments 69-year-old female who presents with multiple medical complaints. She has been having weakness, fatigue, body aches, headache and a productive cough for the past 2 weeks. She reports getting multiple mosquito bites prior to symptoms and believes that she may have malaria. She was given a Z-Barry which she completed and is still having symptoms. She reports having a history of pneumonia and s tates that this feels the same. Medication Reconciliation Allergies: Coded Allergies: Penicillins (Verified Allergy, Mild, RASH, 08/19/24) TOLERATED CEFTRIAXONE ibuprofen (Unverified Allergy, Unknown, TOLD TO NOT TAKE PER DR DUMONT DUE TO SKIN LUPUS, 12/20/24) aspirin (Verified Adverse Reaction, Intermediate, EAR RINGING, 08/19/24) EAR RINGING Uncoded Allergies: CODINE (Allergy, Unknown, 04/19/25) METALS (Allergy, Unknown, 09/19/22) Scheduled Atorvastatin Calcium (Lipitor), 1 TAB PO DAILY, (Reported) Baclofen (Baclofen), 1 TAB PO Q4H, (Reported) Buprenorphine (Butrans), 1 PATCH TOP Q7D, (Reported) Carvedilol (Carvedilol), 1 TAB PO BID, (Reported) Clopidogrel Bisulfate (Plavix), 1 TAB PO DAILY, (Reported) Doxepin HCl (Doxepin HCl), 1 CAP PO HS, (Reported) Ergocalciferol (Vitamin D), 2 CAP PO DAILY, (Reported) Furosemide* (Lasix*), 2 TAB PO DAILY, (Reported) Magnesium Oxide (Magnesium), 1 CAP PO Mon,Wed,Fri, (Reported) Pantoprazole Sodium (Pantoprazole Sodium), 1 TAB PO DAILY, (Reported) Perphenazine (Perphenazine), 4 TAB PO DAILY, (Reported) Vitamin A (Vitamin A), 1 CAP PO DAILY, (Reported) Vitamin E Mixed (Vitamin E), 1 CAP PO Q12H, (Reported) Scheduled PRN Albuterol Sulfate (Ventolin Hfa), 2 PUFFS PO Q4H PRN for SOB or wheezing, (Reported) Hydrocodone Bit/Acetaminophen (Hydrocodon-Acetaminophn 10-325 tablet), 1 TAB PO TID PRN for pain, (Reported) Ipratropium Taylor Neb* (Atrovent Neb*), 2.5 ML INH QID PRN for SOB or wheezing, (Reported) Melatonin (Melatonin), 1 TAB PO HS PRN for sleep, (Reported) Miscellaneous Medications [vitanin c], 500 MG, (Reported) Past Medical History Past Medical History: Coronary Artery Disease, Congestive Heart Failure, High Cholesterol, Hypertension, COPD, Chronic Kidney Disease, Chronic Pain, Chronic Back Pain Past Surgical History: coronary bypass surgery Alcohol Use: None Drug Use: none Lives with: Other Lives In: Home Review of Systems All Other Systems at this time: Reviewed and Negative ROS Patient denies any other acute symptoms other than above. All other systems are negative Physical Exam Physical Exam Vital Signs: RN Vital Signs have been reviewed: Yes, Temperature: 97.4, Source: Temporal, Heart Rate: 109, Respiratory Rate: 14, BP: 149/68, Pulse Oximetry: 97, Weight: 64.700 Pulse Oximetry Reflects: adequate oxygenation Physical Exam General Appearance: Mild distress HEENT: Normal OP, moist oral mucosa, PERRL, EOMI Neck: supple, normal ROM, trachea midline Pulmonary: No respiratory distress, CTA, BS equal Cardiac: RRR, no murmur, rub or gallop, GI: nondistended, soft, nontender, normal bowel sounds, no guarding, no rebound Extremities: normal ROM, no swelling, non-tender Skin: intact, dry, warm, no rashes Neuro: AAOx3, speech is clear, no focal motor weakness Psych: normal affect, good eye contact, no apparent hallucination, normal speech Progress Results/Orders Results/Orders Vital Signs 04/19/25 04/19/25 04/19/25 22:34 23:21 23:21 Temp 97.4 Pulse 109 83 Resp 14 18 16 B/P (MAP) 149/68 127/69 (88) Pulse Ox 97 98 Medical Decision Making Findings Differential diagnosis includes but is not limited to: COPD exacerbation, pneumonia, pleural effusion, congestive heart failure, viral syndrome, acute bronchitis, West Nile virus Chest x-ray, single view, indication: Cough Independent interpretation: Lungs are clear, normal mediastinum, normal cardiac silhouette Emergency department course/medical decision-making: Patient is a 69-year-old woman who comes in complaining of body aches, cough, headache, sweats that has been ongoing for three weeks. Patient recently fin ished a Z-Barry. Patient thinks she has malaria. Patient is reassured that she does not have malaria. Patient has had multiple mosquito bites the prior week. Patient's could have West Nile virus. Patient is neurologically intact and has normal mental status. Serum antibodies for West Nile virus will be ordered. I suspect the patient has some viral syndrome given her symptoms. No medical or surgical emergency has been identified. Patient is stable for discharge. Patient instructed to take Tylenol for her pain. Patient is stating that she is taking [place] for pain and that [place] does not work. Patient also states that she can not take Toradol. Patient now is asking for Demerol. Patient may be drug-seeking. Patient is convinced that a single dose of Motrin gave her lupus. Departure Time of Disposition: 00:35 Disposition: 01 HOME / SELF CARE / HOMELESS Impression: Primary Impression: Viral syndrome Additional Impression: Tobacco use Condition: Stable Discharge Instructions: Viral Illness, Adult Additional Instructions: FOLLOW UP WITH YOUR PRIMARY CARE DOCTOR NEEDED. TAKE TYLENOL FOR PAIN. Referrals: NO PRIMARY CARE PROVIDER (PCP) Education Educated: Patient Educated regarding: diagnosis, treatment, need for follow up Additional Comment Medical Screen Exam This patient recieved a medical screening examination. After reviewing the individual's medical complaints with presenting symptoms and performing an appropriate physical examination, it was determined that no immediate life- threatening emergency medical condition is present. This individual is also not a women having contractions. Signature Scribe Signature: NO SCRIBE Attestation: NO SCRIBE EFRAÍN LEWIS Apr 19, 2025 23:04 AYE BERNARD MD Apr 20, 2025 00:35
[2025-04-20] MEDS: ketorolac trometh 15mg/ml vial 15 MG/ML ML IM STA (00:54)
[2025-04-20 01:02] VITALS: BP 133/67; PULSE 82; RESP 18; O2SAT 97
--- NOTE | 2025-04-20 01:02 | RADIOLOGY REPORT ---
CHEST RADIOGRAPH Indication: productive cough 2-3 weeks, given zpack, no improvement Technique: Single frontal view of the chest was obtained COMPARISON: DI CHEST,SINGLE VIEW on DOS: 08/19/24, DI CHEST,SINGLE VIEW on DOS: 04/27/23, CHEST,SINGLE VIEW on DOS: 11/21/22, CHEST,SINGLE VIEW on DOS: 10/01/22, CHEST,SINGLE VIEW on DOS: 09/30/22 FINDINGS: Lines and Tubes: None Lungs: Clear Pleura: No effusion. No pneumothorax. Cardiomediastinal contours: Unremarkable. Surgical clips noted. Bones: Unremarkable IMPRESSION: 1. No acute disease.
== END 2025-04-20 01:04 | disposition home or self-care (01) ==
LOC: ER 22:31
DX: B34.9 Viral infection, unspecified (principal); I13.0 Hypertensive heart and chronic kidney disease with heart failure and stage 1 through stage 4 chronic kidney disease, or unspecified chronic kidney disease; I50.9 Heart failure, unspecified; N18.9 Chronic kidney disease, unspecified; E78.00 Pure hypercholesterolemia, unspecified; I25.10 Atherosclerotic heart disease of native coronary artery without angina pectoris; J44.9 Chronic obstructive pulmonary disease, unspecified; Z72.0 Tobacco use; Z88.0 Allergy status to penicillin; Z88.1 Allergy status to other antibiotic agents; Z88.8 Allergy status to other drugs, medicaments and biological substances; Z95.1 Presence of aortocoronary bypass graft
CPT/HCPCS: 36415; 71045; 86788; 86789; 96372; 99284; J1885